=== PATIENT | male | born 1955 | race Caucasian/White ===

== ENCOUNTER 2017-01-17 23:50 | Inpatient (IN) | payer OTHER ==
[2017-01-18] MEDS ORDERED: SODIUM CHLORIDE 0.9% 1,000 ML IV ONE (00:16)
[2017-01-18] MEDS ORDERED: MIDAZOLAM 2 MG/2 ML VIAL IVP ONE (00:16)
[2017-01-18] MEDS ORDERED: LIDOCAINE 2% INJ 20 MG/ML SQ ONE (00:20)
[2017-01-18] MEDS ORDERED: BIVALIRUDIN 250 MG in SODIUM CHLORIDE 0.9% 50 ML IV ONE (00:30)
[2017-01-18] MEDS ORDERED: BIVALIRUDIN BOLUS 250 MG/50 ML IV ONE (00:34)
--- NOTE | 2017-01-18 00:35 | P.CRDCN ---
History of Present Illness Consult date: 01/18/17 History of present illness: This is a 61-year-old gentleman with no significant past medical history except a smoking came to [facility] emergency room with complaints of burning epigastric pain radiating to the chest and also to the left arm associated with some sweating. Patient took his Pepcid and Pepto-Bismol at home without much relief. Patient subsequently came to the emergency room. EKG in the emergency room showed ST elevation in the anterior leads consistent with anterior wall myocardial infarction. Patient was given nitroglycerin without much relief. He was given morphine with partial relief of the pain. He was advised to be transferred to [facility] for cardiac cath and possible stent placement. On arrival patient is having mild chest discomfort. He has no family. Patient is advised of the risks and benefits of the procedure Review of Systems Not obtained Medications and Allergies Allergies Allergy/AdvReac Type Severity Reaction Status Date / Time No Known Allergies Allergy Verified 01/18/17 00:17 Physical Exam Vitals: Intake and Output 01/17/17 01/17/17 01/18/17 14:59 22:59 06:59 Other: Weight 83.395 kg Patient Weight 01/18/17 06:59 Weight 83.395 kg GENERAL EXAM: Patient is alert and oriented and appears to be in mild distress acute distress HEENT: Normocephalic. Normal reaction of pupils, equal size, normal range of extraocular motion. No erythema or exudates in the throat. NECK: No masses, no nuchal rigidity. CHEST: No chest wall deformity. LUNGS: Equal air entry with no crackles or wheeze. HEART: S1 and S2 normal with no audible mumurs or gallops. Regular rhythm, right femoral pulse is weak ABDOMEN: No hepatosplenomegaly, normal bowel sounds, no guarding or rigidity. SKIN: No rashes CENTRAL NERVOUS SYSTEM: No focal deficits. EXTREMITIES: No cyanosis, clubbing or edema. Results Intake and Output 01/17/17 01/17/17 01/18/17 14:59 22:59 06:59 Other: Weight 83.395 kg Patient Weight 01/18/17 06:59 Weight 83.395 kg EKG Interpretations (text) Sinus rhythm with anterior wall myocardial infarctions Assessment and Plan (1) Acute anterior wall IL Status: Acute (2) Smoking Status: Acute Plan: Proceed with cardiac catheterization with intention of primary intervention. Prognosis is guarded
--- NOTE | 2017-01-18 00:39 | P.PCN ---
Date of Procedure: 01/18/17 Preoperative Diagnosis: Acute anterior wall myocardial infarctions Postoperative Diagnosis: Total occlusion of the left anterior descending Procedure(s) Performed: Left heart catheterization Implants: Indications for Procedure: Operative Findings: Description of Procedure: HISTORY: This is a 61-year-old gentleman with history of smoking was admitted through the emergency room with findings of acute anterolateral wall CO. Patient is advised to have a cardiac cath. CONSENT:I have discussed the risks, benefits and alternative therapies for the above-mentioned procedure and for both sedation/analgesia as well as necessary blood product administration, if indicated, as they pertain to this patient. The patient has indicated understanding and acceptance of the risks and procedures discussed. PROCEDURE: Patient was brought to the lab in a fasting state. Patient was given some IV sedation. The right groin is infiltrated with lidocaine and right femoral artery was entered using Seldinger technique. A 6-Mexican catheter was left in place and selective coronary arteriography was performed. Patient tolerated the procedure well. Patient is found to have total occlusion of the left anterior descending and went on to have stent placement by Dr. SWATI Hare HEMODYNAMICS: The aortic pressure is 116/74. Left ankle end-diastolic pressure not measured SELECTIVE CORONARY ARTERIOGRAPHY: LEFT MAIN: Normal length THE LEFT ANTERIOR DESCENDING CORONARY ARTERY: This is totally occluded in the proximal portion. The mid and distal LAD is seen by collateral flow. LAD appears to be dominant vessel. THE LEFT CIRCUMFLEX AND IS CORONARY ARTERY: Fair caliber vessel with mild diffuse disease THE RIGHT CORONARY ARTERY: Nondominant vessel LEFT VENTRICULOGRAPHY: Not performed FINAL IMPRESSION: Total occlusion of the proximal LAD PLAN: Stent placement being attempted by Dr. SWATI Hare PROGNOSIS: Guarded
[2017-01-18] MEDS ORDERED: NITROGLYCERIN 1000MCG/10ML SYRINGE INTRACORON ONE (00:48)
[2017-01-18] MEDS ORDERED: METOPROLOL TARTRATE 5 MG/5 ML VIAL IVP ONE (01:01)
[2017-01-18] MEDS ORDERED: CLOPIDOGREL 75 MG TAB PO ONE (01:04)
[2017-01-18] MEDS ORDERED: IODIXANOL 320 MG/ML 100 ML INTRAARTER ONE (01:05)
[2017-01-18] MEDS ORDERED: MAG HYDROX/AL HYDROX/SIMETH 30 ML CUP PO PRN (01:13)
[2017-01-18] MEDS ORDERED: RX INFO: IV CONTRAST WAS GIVEN 1 EACH MISC MISCELLANE PRN (01:13)
[2017-01-18] MEDS ORDERED: ZOLPIDEM 5 MG TAB PO PRN (01:13)
[2017-01-18] MEDS ORDERED: ATROPINE SULFATE 0.1 MG/ML 10ML SYRINGE IV PRN (01:13)
[2017-01-18] MEDS ORDERED: NITROGLYCERIN SL TABS 0.4 MG TAB SUBLINGUAL PRN (01:13)
[2017-01-18 01:31] LABS: Glucose,Whole Blood 137 mg/dL (75-99)
[2017-01-18] MEDS: SODIUM CHLORIDE 0.9% 1,000 ML IV SCH ×2 (03:17→14:59)
[2017-01-18 04:40] VITALS: BMI 26.6
[2017-01-18 05:51] LABS: Basophils # (A) 0.1 k/uL (0-0.2); Basophils % (A) 1 %; CH 28.7; CHCM 32.9; Eosinophils # (A) 0.2 k/uL (0-0.7); Eosinophils % (A) 2 %; HCT 54.4 % (39.0-53.0); HDW 2.63; HGB 17.6 gm/dL (13.0-17.5); Luc # (Auto) 0.12; Luc % (Auto) 1; Lymphocytes # (A) 2.2 k/uL (1.0-4.8); Lymphocytes % (A) 25 %; MCH 28.5 pg (25.0-35.0); MCHC 32.4 g/dL (31.0-37.0); MCV 87.9 fL (80.0-100.0); Mean Platelet Volume 6.1; Monocytes # (A) 0.4 k/uL (0-1.0); Monocytes % (A) 4 %; Neutrophils # (A) 5.9 k/uL (1.3-7.7); Neutrophils % (A) 67 %; RBC 6.19 m/uL (4.30-5.90); RDW 14.3 % (11.5-15.5); WBC 8.8 k/uL (3.8-10.6); WBC (Perox) 8.35
[2017-01-18 06:16] LABS: Anion Gap 9 mmol/L; Blood Urea Nitrogen 13 mg/dL (9-20); Calcium 9.2 mg/dL (8.4-10.2); Carbon Dioxide 22 mmol/L (22-30); Chloride 110 mmol/L (98-107); Glucose 115 mg/dL (74-99); Magnesium 2.1 mg/dL (1.6-2.3); Non-African American GFR(MDRD) >60 (>60 ml/min/1.73 sqM); Potassium 4.2 mmol/L (3.5-5.1); Sodium 141 mmol/L (137-145)
[2017-01-18 07:53] LABS: Troponin I 30.4 ng/mL (0.000-0.034)
[2017-01-18 07:55] LABS: Creatine Kinase MB 55.7 ng/mL (0.0-2.4)
[2017-01-18] MEDS: LISINOPRIL 10 MG TAB PO SCH (08:24)
[2017-01-18] MEDS: ASPIRIN 81 MG CHEW PO SCH (08:25)
[2017-01-18] MEDS ORDERED: METOPROLOL TARTRATE 25 MG TAB PO SCH (09:00)
--- NOTE | 2017-01-18 10:07 | ECHOF ---
Referral Reason:Anterior STEMI MEASUREMENTS -------- HEIGHT: 152.4 cm WEIGHT: 83.9 kg BP: 149/84 IVSd: 1.3 cm (0.6 - 1.1) LVIDd: 4.3 cm (3.9 - 5.3) LVPWd: 1.4 cm (0.6 - 1.1) IVSs: 1.6 cm LVIDs: 3.4 cm LVPWs: 1.1 cm LA Diam: 3.7 cm (2.7 - 3.8) Ao Diam: 3.0 cm (2.0 - 3.7) AV Cusp: 1.8 cm (1.5 - 2.6) LA Diam: 4.3 cm (2.7 - 3.8) MV EXCURSION: 23.427 mm (> 18.000) MV EF SLOPE: 75 mm/s (70 - 150) EPSS: 0.5 cm MV E Kimani: 0.61 m/s MV DecT: 300 ms MV A Kimani: 0.91 m/s MV E/A Ratio: 0.67 FINDINGS -------- Sinus rhythm. This was a technically adequate study. There is mild concentric left ventricular hypertrophy. Overall left ventricular systolic function is mild-moderately impaired with, an EF between 40 - 45 %. Mid anterior LV wall motion is normal. Mid anteroseptal LV wall motion is hypokinetic. Apical anterior LV wall motion is hypokinetic. Apical septum LV wall motion is hypokinetic. [place] Hypokinesis. The right ventricle is normal in size. The left atrial size is normal. The right atrial size is normal. There is mild aortic valve sclerosis. There is no evidence of aortic regurgitation. Mild mitral annular calcification present. Mild mitral regurgitation is present. Mild tricuspid regurgitation present. There is no evidence of pulmonary hypertension. The right ventricular systolic pressure, as measured by Doppler, is {RVSP}. Trace/mild (physiologic) pulmonic regurgitation. The aortic root size is normal. There is no pericardial effusion. CONCLUSIONS -------- 1. There is mild concentric left ventricular hypertrophy. 2. The right ventricular systolic pressure, as measured by Doppler, is {RVSP}. 3. Trace/mild (physiologic) pulmonic regurgitation. 4. There is no pericardial effusion. 5. Overall left ventricular systolic function is mild-moderately impaired with, an EF between 40 - 45 %. 6. Mid anterior LV wall motion is normal. 7. [place]ell Hypokinesis. 8. There is mild aortic valve sclerosis. 9. Mild mitral annular calcification present. 10. Mild mitral regurgitation is present. 11. Mild tricuspid regurgitation present. 12. There is no evidence of pulmonary hypertension. ACCOUNTS PAYABLE REPRESENTATIVE: Linsey Barker RDCS
--- NOTE | 2017-01-18 10:41 | PTCA ---
DATE OF SERVICE: 01/18/17. PROCEDURE: PTCA and stenting of a totally occluded mid LAD performed in the setting of an acute anterior wall ST elevation myocardial infarction. Performed by: Dr. Berna Hare. CLINICAL INFORMATION: Mr. Steven Jasmine is a 61-year-old gentleman with a history of smoking and does not take any medications has no primary care physician came into [facility] emergency room with chest pain, HAD anterior ST elevation was promptly transferred to [facility]. He was evaluated by Dr. Rodriguez who performed the cardiac catheterization and noted that the LAD was totally occluded in the midportion immediately after a moderate size septal branch. His circumflex was dominant disease-free , RCA was small. He was advised intervention that was performed expeditiously. PROCEDURE NOTE: The existing 6 Bahamian introducer in the right femoral artery was used to perform procedure. I used a standard left Tarah-type guide catheter to cannulate the left coronary artery. A BMW wire along with a 2.5 caliber, 12 mm long trek balloon combination was used to cross the lesion. Wire was kept distally. I dilated to the total occlusion in three areas with a 2.5 caliber, 12 mm long trek balloon. There was a decent improvement in angiographic appearance and flow. The entire vessel opened up all the way to the apex. I then deployed a 2.75 caliber, 18 millimeters long Xience drug-eluting stent at 14 atmospheres. The patient did not have any additional chest pain, but had slightly more prominent. EKG changes. Excellent angiographic result was achieved with remarkably good JERRY-3 flow. Patient's chest pain was relieved completely. EKG remained abnormal with anterior ST elevation, but some modest improvement in ST segment after the intervention. I then performed a left ventriculogram after checking the LV pressure in a 30 degree KLEIN projection. Ejection fraction was about 40% to 45% with mid to distal anteroapical akinesia. A left ventricular end-diastolic pressure was about 20 mmHg without any gradient across the aortic valve. The sheath was then taken out and Angio-Seal device used to secure hemostasis. Patient was sent to the room in stable condition. Excellent angiographic result without complication was achieved. The results were discussed with the patient. There were no family members available. He received a total of 600 milligrams of Plavix. He received 300 milligrams in the [facility] emergency room and additional 300 here.. He also received Angiomax bolus and infusion. The patient was poor given moderate conscious sedation for a total duration 50 minutes. Patient to was given Versed, Benadryl and oxygenation was monitored closely.
--- NOTE | 2017-01-18 11:20 | PN ---
Mr. Jasmine is doing well. He was admitted yesterday with an acute myocardial infarction anterior wall and he underwent stent to the LAD. He is pain free. His groin has healed well. There is no hematoma. Heart sounds are normal. Breath sounds are clear. No murmurs, no gallops. Vitals are stable. His blood pressure is 134/81, 149/84 mmHg. Heart rates are in the 80s. He is afebrile, 98.4 degrees Fahrenheit . IMPRESSION: Coronary artery disease, status post anterior wall myocardial infarction, status post coronary stenting. PLAN: Increase beta blockers today and continue statins and antiplatelet agents, 2-D echo and Doppler study.
--- NOTE | 2017-01-18 17:45 | P.HPIM ---
History of Present Illness H&P Date: 01/18/17 Chief Complaint: Pain 61-year-old gentleman with the significant past medical history of GERD initially went into the [facility] after noting to have left-sided arm pain and diaphoresis. Patient initially thought it was heartburn took some medications thereafter did not have relief and noted to have additional symptoms of left arm numbness and diaphoresis. Patient was noted to have an ST elevation myocardial infarction thereafter was a brought in to [facility] emergently. Patient underwent a cardiac catheterization was noted to have a lesion in the LAD and is status post stent placement for an anterior wall myocardial infarctions Today patient is symptom-free denies having any headaches blurry vision nausea vomiting any breathing difficulty. Patient smokes about a pack of cigarettes daily refuses to quit smoking on discharge. Review of Systems All systems: negative (Noted in HPI) Past Medical History Past Medical History: No Reported History History of Any Multi-Drug Resistant Organisms: None Reported Past Surgical History: No Surgical Hx Reported Past Anesthesia/Blood Transfusion Reactions: No Reported Reaction Past Psychological History: No Psychological Hx Reported Smoking Status: Current every day smoker Past Alcohol Use History: None Reported Past Drug Use History: None Reported - Past Family History Mother Family Medical History: Diabetes Mellitus Father Family Medical History: Diabetes Mellitus Medications and Allergies Home Medications Medication Instructions Recorded Confirmed Type No Known Home Medications [No 01/18/17 01/18/17 History Known Home Medications] Allergies Allergy/AdvReac Type Severity Reaction Status Date / Time No Known Allergies Allergy Verified 01/18/17 00:17 Physical Exam Vitals: Vital Signs Temp Pulse Resp BP Pulse Ox 01/18/17 16:00 97.9 F 73 16 102/54 95 01/18/17 15:00 80 15 118/63 94 L 01/18/17 14:00 76 17 116/70 92 L 01/18/17 13:00 94 14 118/71 94 L 01/18/17 12:00 98.4 F 78 15 125/76 95 01/18/17 11:00 79 19 123/77 94 L 01/18/17 10:30 79 30 H 137/78 95 01/18/17 10:00 76 24 137/78 94 L 01/18/17 09:30 74 20 134/80 93 L 01/18/17 09:00 78 21 134/80 94 L 01/18/17 08:30 84 18 149/84 93 L 01/18/17 08:00 98.4 F 90 19 149/84 94 L 01/18/17 07:30 87 17 148/82 94 L 01/18/17 07:00 83 21 143/80 94 L 01/18/17 06:30 84 20 146/86 94 L 01/18/17 06:00 88 20 143/80 95 01/18/17 05:30 84 20 141/85 94 L 01/18/17 05:00 87 19 134/77 94 L 01/18/17 04:45 84 20 141/79 95 01/18/17 04:30 89 20 141/79 93 L 01/18/17 04:15 87 21 137/84 93 L 01/18/17 04:00 98.3 F 86 17 137/84 93 L 01/18/17 03:45 90 16 140/83 93 L 01/18/17 03:30 87 17 134/79 95 01/18/17 03:15 94 20 135/79 94 L 01/18/17 03:00 98 16 135/84 92 L 01/18/17 02:45 109 H 20 140/88 94 L 01/18/17 02:30 89 14 140/80 93 L 01/18/17 02:15 87 20 126/81 94 L 01/18/17 02:00 83 22 136/81 94 L 01/18/17 01:45 98.5 F 84 23 141/92 95 Intake and Output 01/18/17 01/18/17 01/18/17 06:59 14:59 22:59 Intake Total 658 1745 500 Output Total 750 1700 300 Balance -92 45 200 Intake: IV 658 525 Sodium Chloride 0.9% 1, 375 525 000 ml @ 75 mls/hr IV . [id number] SUDEEP Rx#:[id number] Oral 1220 500 Output: Urine 750 1700 300 Other: # Voids 1 Weight 84.1 kg Physical exam Gen. appearance oriented 3 in no distress Neck is supple no JVD Lungs good air entry clear to auscultation no rhonchi or wheezing Heart S1-S2 heard regular rate and rhythm no murmurs appreciated Abdomen is soft nontender no organomegaly bowel sounds are intact Neurologically cranial nerves II-12 grossly intact no focal motor or sensory deficits noted Skin no abnormalities appreciated Results CBC & Chem 7: 01/18/17 05:42 01/18/17 05:42 Labs: Abnormal Lab Results - Last 24 Hours (Table) 01/18/17 01/18/17 01/18/17 Range/Units 01:29 05:42 05:42 RBC 6.19 H (4.30-5.90) m/uL Hgb 17.6 H (13.0-17.5) gm/dL Hct 54.4 H (39.0-53.0) % Chloride 110 H (98-107) mmol/L Glucose 115 H (74-99) mg/dL POC Glucose (mg/dL) 137 H (75-99) mg/dL CK-MB (CK-2) (0.0-2.4) ng/mL Troponin I (0.000-0.034) ng/mL 01/18/17 01/18/17 Range/Units 05:42 14:50 RBC (4.30-5.90) m/uL Hgb (13.0-17.5) gm/dL Hct (39.0-53.0) % Chloride (98-107) mmol/L Glucose (74-99) mg/dL POC Glucose (mg/dL) (75-99) mg/dL CK-MB (CK-2) 55.7 H* (0.0-2.4) ng/mL Troponin I 30.400 H* 9.950 H* (0.000-0.034) ng/mL Thrombosis Risk Factor Assmnt - Choose All That Apply Any of the Below Risk Factors Present?: Yes Each Factor Represents 1 point: Age 41-60 years, Medical pt on bed rest, Obesity (BMI >25) Each Risk Factor Represents 2 Points: Patient confined to bed Thrombosis Risk Factor Assessment Total Risk Factor Score: 5 Thrombosis Risk Factor Assessment Level: High Risk Assessment and Plan Plan: #1 ST elevation myocardial infarction affecting the LAD territory anterior wall #2 ongoing tobacco use #2 leukocytosis which is likely reactive Plan Continue dual antiplatelet therapy statins Vascular checks were completed appropriately Continue telemetry monitoring at this time Beta blockers to continue Smoking cessation was discussed however patient does not want to quit smoking at this time continue ICU care
[2017-01-18] MEDS: ATORVASTATIN 80 MG TAB PO SCH (20:33)
[2017-01-18] MEDS: METOPROLOL TARTRATE 50 MG TAB PO SCH (20:33)
[2017-01-19 06:27] LABS: Basophils # (A) 0.1 k/uL (0-0.2); Basophils % (A) 1 %; CH 28.1; CHCM 32.4; Eosinophils # (A) 0.2 k/uL (0-0.7); Eosinophils % (A) 2 %; HCT 52.9 % (39.0-53.0); HDW 2.76; HGB 17.8 gm/dL (13.0-17.5); Luc # (Auto) 0.13; Luc % (Auto) 2; Lymphocytes # (A) 1.9 k/uL (1.0-4.8); Lymphocytes % (A) 25 %; MCH 29.4 pg (25.0-35.0); MCHC 33.7 g/dL (31.0-37.0); MCV 87.1 fL (80.0-100.0); Mean Platelet Volume 7.5; Monocytes # (A) 0.4 k/uL (0-1.0); Monocytes % (A) 5 %; Neutrophils # (A) 5.1 k/uL (1.3-7.7); Neutrophils % (A) 66 %; RBC 6.08 m/uL (4.30-5.90); RDW 14.7 % (11.5-15.5); WBC 7.7 k/uL (3.8-10.6); WBC (Perox) 7.29
[2017-01-19] MEDS: CLOPIDOGREL 75 MG TAB PO SCH (07:53)
[2017-01-19] MEDS: LISINOPRIL 10 MG TAB PO SCH (07:53)
[2017-01-19] MEDS: ASPIRIN 81 MG CHEW PO SCH (07:54)
[2017-01-19] MEDS: METOPROLOL TARTRATE 50 MG TAB PO SCH ×2 (07:54→20:42)
[2017-01-19 08:29] LABS: Anion Gap 11 mmol/L; Blood Urea Nitrogen 18 mg/dL (9-20); Calcium 9.4 mg/dL (8.4-10.2); Carbon Dioxide 20 mmol/L (22-30); Chloride 108 mmol/L (98-107); Glucose 138 mg/dL (74-99); Non-African American GFR(MDRD) >60 (>60 ml/min/1.73 sqM); Potassium 4.7 mmol/L (3.5-5.1); Sodium 139 mmol/L (137-145)
--- NOTE | 2017-01-19 15:05 | P.PN ---
Subjective 61-year-old gentleman with the significant past medical history of GERD initially went into the [facility] after noting to have left-sided arm pain and diaphoresis. Patient initially thought it was heartburn took some medications thereafter did not have relief and noted to have additional symptoms of left arm numbness and diaphoresis. Patient was noted to have an ST elevation myocardial infarction thereafter was a brought in to [facility] emergently. Patient underwent a cardiac catheterization was noted to have a lesion in the LAD and is status post stent placement for an anterior wall myocardial infarctions Today patient is symptom-free denies having any headaches blurry vision nausea vomiting any breathing difficulty. Patient smokes about a pack of cigarettes daily refuses to quit smoking on discharge. 01/19/17 No new overnight events denies pain in his groin no cp, maggie, n/v, abdominal pain Objective - Vital Signs Vital signs: Vital Signs Temp 97.6 F 01/19/17 07:49 Pulse 58 L 01/19/17 11:18 Resp 16 01/19/17 11:18 BP 106/60 01/19/17 11:18 Pulse Ox 96 01/19/17 11:18 Intake & Output 01/18/17 01/19/17 01/19/17 18:59 06:59 18:59 Intake Total 2245 180 720 Output Total 2000 Balance 245 180 720 Weight 81.7 kg Intake: IV 525 Sodium Chloride 0.9% 1, 525 000 ml @ 75 mls/hr IV . [id number] SUDEEP Rx#:[id number] Oral 1720 180 720 Output: Urine 2000 Other: # Voids 1 1 1 - Constitutional General appearance: Present: no acute distress - EENT Eyes: Present: PERRLA - Neck Neck: Present: normal ROM - Respiratory Respiratory: bilateral: CTA, negative: dullness, rales, rhonchi - Cardiovascular Rhythm: regular Heart sounds: normal: S1, S2 Abnormal Heart Sounds: Absent: systolic murmur - Gastrointestinal General gastrointestinal: Present: normal bowel sounds. Absent: organomegaly, tenderness - Integumentary Integumentary: Present: normal - Neurologic Neurologic: Present: CNII-XII intact. Absent: focal deficits - Musculoskeletal Musculoskeletal: Present: gait normal - Psychiatric Psychiatric: Present: A&O x's 3. Absent: appropriate affect - Labs CBC & Chem 7: 01/19/17 06:08 01/19/17 06:38 Labs: Abnormal Lab Results - Last 24 Hours (Table) 01/18/17 01/18/17 01/19/17 Range/Units 14:50 18:06 06:08 RBC 6.08 H (4.30-5.90) m/uL Hgb 17.8 H (13.0-17.5) gm/dL Chloride (98-107) mmol/L Carbon Dioxide (22-30) mmol/L Glucose (74-99) mg/dL Troponin I 9.950 H* 8.940 H* (0.000-0.034) ng/mL 01/19/17 Range/Units 06:38 RBC (4.30-5.90) m/uL Hgb (13.0-17.5) gm/dL Chloride 108 H (98-107) mmol/L Carbon Dioxide 20 L (22-30) mmol/L Glucose 138 H (74-99) mg/dL Troponin I (0.000-0.034) ng/mL Assessment and Plan Plan: #1 ST elevation myocardial infarction affecting the LAD territory anterior wall #2 ongoing tobacco use #2 leukocytosis which is likely reactive Plan Continue dual antiplatelet therapy statins Continue telemetry monitoring at this time Beta blockers to continue Smoking cessation was discussed however patient does not want to quit smoking at this time d/c home [facility]
--- NOTE | 2017-01-19 15:53 | P.PN ---
Subjective Principal diagnosis: STEMI This is a 61-year-old gentleman with history of nicotine dependence who presented to [facility] with complaints of chest discomfort. He ruled in for an ST elevation myocardial infarction. Patient was transferred here and underwent stent placement of the LAD. EKG this morning showed normal sinus rhythm with progression of ST-T wave changes in the anterior lateral leads. Hemoglobin this morning 17.8, platelet count 198, potassium 4.7, BUN 18, creatinine 0.8. Initial troponin 30.4, subsequent troponin 9.9 and 8.9. Echocardiogram with Doppler study was performed which revealed an ejection fraction of 40-45%. He has been up ambulating in the hallway, denies any chest pain or difficulty in breathing. Objective - Vital Signs Vital signs: Vital Signs Temp 97.4 F L 01/19/17 15:06 Pulse 55 L 01/19/17 15:06 Resp 16 01/19/17 15:06 BP 99/56 01/19/17 15:06 Pulse Ox 97 01/19/17 15:06 Intake & Output 01/18/17 01/19/17 01/19/17 18:59 06:59 18:59 Intake Total 2245 180 720 Output Total 1999 09 Balance 245 180 719 Weight 81.7 kg Intake: IV 525 Sodium Chloride 0.9% 1, 525 000 ml @ 75 mls/hr IV . [id number] SUDEEP Rx#:[id number] Oral 1720 180 720 Output: Urine 1999 09 Other: # Voids 1 1 1 - Exam PHYSICAL EXAMINATION: HEENT: Head is atraumatic, normocephalic. Pupils equal, round. Neck is supple. There is no elevated jugular venous pressure. HEART EXAMINATION: Heart S1, S2 normal. No murmur or gallop heard. CHEST EXAMINATION: Lungs are clear to auscultation and precussion. No chest wall tenderness is noted on palpation or with deep breathing. ABDOMEN: Soft, nontender. Bowel sounds are heard. No organomegaly noted. Right groin soft, no evidence of any hematoma. EXTREMITIES: 2+ peripheral pulses with no evidence of peripheral edema and no calf tenderness noted. NEUROLOGIC patient is awake, alert and oriented -3. . - Labs CBC & Chem 7: 01/19/17 06:08 01/19/17 06:38 Labs: Abnormal Lab Results - Last 24 Hours (Table) 01/18/17 01/18/17 01/19/17 Range/Units 14:50 18:06 06:08 RBC 6.08 H (4.30-5.90) m/uL Hgb 17.8 H (13.0-17.5) gm/dL Chloride (98-107) mmol/L Carbon Dioxide (22-30) mmol/L Glucose (74-99) mg/dL Troponin I 9.950 H* 8.940 H* (0.000-0.034) ng/mL 01/19/17 Range/Units 06:38 RBC (4.30-5.90) m/uL Hgb (13.0-17.5) gm/dL Chloride 108 H (98-107) mmol/L Carbon Dioxide 20 L (22-30) mmol/L Glucose 138 H (74-99) mg/dL Troponin I (0.000-0.034) ng/mL Assessment and Plan (1) ST elevation (STEMI) myocardial infarction involving left anterior descending coronary artery Status: Acute (2) Presence of stent in LAD coronary artery Status: Acute (3) Smoking Status: Acute Plan: From cardiology's perspective, we'll continue patient on his current medication including dual antiplatelet therapy. He may be able to be discharged home in the morning if stable. A follow-up appointment will be made with Dr. Rodriguez in the office post discharge. DNP note has been reviewed, I agree with a documented findings and plan of care. Patient was seen and examined.
[2017-01-19] MEDS: ATORVASTATIN 80 MG TAB PO SCH (20:42)
[2017-01-20 04:26] VITALS: TEMP 97
[2017-01-20] MEDS: METOPROLOL TARTRATE 50 MG TAB PO SCH (08:07)
[2017-01-20] MEDS: ASPIRIN 81 MG CHEW PO SCH (08:07)
[2017-01-20] MEDS: CLOPIDOGREL 75 MG TAB PO SCH (08:08)
[2017-01-20] MEDS: LISINOPRIL 10 MG TAB PO SCH (08:08)
[2017-01-20 08:17] VITALS: RESP 18
[2017-01-20 12:17] VITALS: BP 124/70; PULSE 57
--- NOTE | 2017-01-20 13:59 | P.PN ---
Subjective Principal diagnosis: STEMI This is a 61-year-old gentleman with a history of nicotine dependence who presented to [facility] with complaints of chest discomfort. He ruled in for an ST elevated myocardial infarction. Patient was transferred here to [facility] and underwent stent placement of the LAD. Subsequently EKG showed normal sinus rhythm with progress send of ST-T wave changes in the left anterior lateral leads. He had initial troponin of 30.4 with subsequent troponins of 9.9 and 8.9. Echocardiogram with Doppler was performed that revealed an ejection fraction of 40-45%. Patient has been up ambulating denies complaints of chest discomfort, difficulty breathing, dizziness or palpitations. He is quite anxious to be discharged today. Objective - Vital Signs Vital signs: Vital Signs Temp 97 F L 01/20/17 12:00 Pulse 57 L 01/20/17 12:00 Resp 18 01/20/17 12:00 BP 124/70 01/20/17 12:00 Pulse Ox 98 01/20/17 12:00 Intake & Output 01/19/17 01/20/17 01/20/17 18:59 06:59 18:59 Intake Total 960 240 Output Total 1 Balance 959 240 Weight 81.7 kg Intake: Oral 960 240 Output: Urine 1 Other: # Voids 1 1 - Exam PHYSICAL EXAMINATION: HEENT: Head is atraumatic, normocephalic. Pupils equal, round. Neck is supple. There is no elevated jugular venous pressure. HEART EXAMINATION: Heart sounds regular, S1 and S2 normal. No murmur or gallop heard. CHEST EXAMINATION: Lungs are clear to auscultation and precussion. No chest wall tenderness is noted on palpation or with deep breathing. ABDOMEN: Soft, nontender. Bowel sounds are heard. No organomegaly noted. EXTREMITIES: 2+ peripheral pulses with no evidence of peripheral edema and no calf tenderness noted. Right groin puncture site soft with no ecchymosis or evidence of hematoma. NEUROLOGIC patient is awake, alert and oriented x3. . - Labs CBC & Chem 7: 01/19/17 06:08 01/19/17 06:38 Assessment and Plan Plan: Assessment and plan #1 ST elevation myocardial infarction involving left anterior descending coronary artery #2 status post stent placement to the LAD #3 current every day smoker From cardiology's perspective, patient is stable for discharge home today. Smoking cessation was discussed with the patient and he has not agreeable. He understands that he should not return to work on Monday. He will follow-up with Dr. Rodriguez in the office in about a week. He will remain on aspirin 81 mg by mouth daily, atorvastatin 80 mg by mouth daily at bedtime, clopidogrel 75 mg by mouth daily, lisinopril 10 mg by mouth daily and metoprolol tartrate 50 mg by mouth twice a day. CLINICAL OPERATIONS SPECIALIST note has been reviewed, I agree with a documented findings and plan of care. Patient was seen and examined.
--- NOTE | 2017-01-20 14:07 | P.DS ---
Providers Date of admission: 01/18/17 00:04 Attending physician: Carola Davis Consults: 01/18/17 01:12 Consult Physician Stat Consulting Provider: Rolando Rodriguez Consult Reason/Comments: Acute STEMI Do you want consulting provider notified?: Already Contacted 01/18/17 01:13 Consult Physician Routine Consulting Provider: [facility] Consult Reason/Comments: Post Interventional patient Do you want consulting provider notified?: Already Contacted Primary care physician: Stated None Hospital Course: 61-year-old gentleman with the significant past medical history of GERD initially went into the [facility] after noting to have left-sided arm pain and diaphoresis. Patient initially thought it was heartburn took some medications thereafter did not have relief and noted to have additional symptoms of left arm numbness and diaphoresis. Patient was noted to have an ST elevation myocardial infarction thereafter was a brought in to [facility] emergently. Patient underwent a cardiac catheterization was noted to have a lesion in the LAD and is status post stent placement for an anterior wall myocardial infarctions Today patient is symptom-free denies having any headaches blurry vision nausea vomiting any breathing difficulty. Patient smokes about a pack of cigarettes daily refuses to quit smoking on discharge. 01/19/17 No new overnight events denies pain in his groin no cp, maggie, n/v, abdominal pain - Constitutional General appearance: Present: no acute distress - EENT Eyes: Present: PERRLA - Neck Neck: Present: normal ROM - Respiratory Respiratory: bilateral: CTA, negative: dullness, rales, rhonchi - Cardiovascular Rhythm: regular Heart sounds: normal: S1, S2 Abnormal Heart Sounds: Absent: systolic murmur - Gastrointestinal General gastrointestinal: Present: normal bowel sounds. Absent: organomegaly, tenderness - Integumentary Integumentary: Present: normal - Neurologic Neurologic: Present: CNII-XII intact. Absent: focal deficits - Musculoskeletal Musculoskeletal: Present: gait normal - Psychiatric Psychiatric: Present: A&O x's 3. Absent: appropriate affect - Labs CBC & Chem 7: 01/19/17 06:08 Assessment and Plan Plan: #1 ST elevation myocardial infarction affecting the LAD territory anterior wall #2 ongoing tobacco use Aspirin Plavix, beta kamilla, ADAMS inhibitor, statin on discharge Follow-up with cardiology Did discuss possibility of cardiac rehab Smoking cessation is discussed patient refuses to quit smoking Discharged home Plan - Discharge Summary New Discharge Prescriptions: Aspirin 81 mg PO DAILY #30 Atorvastatin [Lipitor] 80 mg PO HS #30 tab Clopidogrel [Plavix] 75 mg PO DAILY #30 tab Lisinopril [Zestril] 10 mg PO DAILY #30 tab Metoprolol Tartrate [Lopressor] 50 mg PO BID #30 tab Discharge Medication List Aspirin 81 mg PO DAILY #30 01/20/17 [Rx] Atorvastatin [Lipitor] 80 mg PO HS #30 tab 01/20/17 [Rx] Clopidogrel [Plavix] 75 mg PO DAILY #30 tab 01/20/17 [Rx] Lisinopril [Zestril] 10 mg PO DAILY #30 tab 01/20/17 [Rx] Metoprolol Tartrate [Lopressor] 50 mg PO BID #30 tab 01/20/17 [Rx] Follow up Appointment(s)/Referral(s): Beth Bautista MD [STAFF PHYSICIAN] - 1 Week (Please call to make an appointment. ) Rolando Rodriguez MD [STAFF PHYSICIAN] - 01/26/17 2:00 pm Patient Instructions/Handouts: *Surgery [facility] - After Heart Catheterization - Pacs Administrator Instructions, Myocardial Infarction (DC) Discharge Disposition: HOME SELF-CARE
== END 2017-01-20 14:39 | disposition home or self-care (01) | DRG 247 ==
LOC: 6ICU 01-18 00:04 → 6SEL 01-18 18:45
PROVIDERS: ADMIT Internal Medicine; ATTEND Internal Medicine
PROC: B211YZZ Fluoroscopy of Multiple Coronary Arteries using Other Contrast (ICD-10-PCS; 2017-01-18)
PROC: B215YZZ Fluoroscopy of Left Heart using Other Contrast (ICD-10-PCS; 2017-01-18)
PROC: 027034Z Dilation of Coronary Artery, One Artery with Drug-eluting Intraluminal Device, Percutaneous Approach (ICD-10-PCS; principal; 2017-01-18 00:15)
PROC: 4A023N7 Measurement of Cardiac Sampling and Pressure, Left Heart, Percutaneous Approach (ICD-10-PCS; 2017-01-18 00:15)
DX: I21.02 ST elevation (STEMI) myocardial infarction involving left anterior descending coronary artery (principal); F17.210 Nicotine dependence, cigarettes, uncomplicated; I25.10 Atherosclerotic heart disease of native coronary artery without angina pectoris; K21.9 Gastro-esophageal reflux disease without esophagitis
CPT/HCPCS: 80048; 82553; 83735; 84484; 85025; 93306; 93458

== ENCOUNTER 2019-05-12 11:10 | Emergency (ER) | payer OTHER ==
[2019-05-12 11:16] VITALS: BP 155/99; PULSE 105; RESP 18; TEMP 97.9
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
[2019-05-12] MEDS ORDERED: ACET/COD 300 MG/30 MG STARTER PACK 6 TAB BTL PO STA (11:59)
== END 2019-05-12 12:06 | disposition home or self-care (01) ==
LOC: EC 11:10
DX: S42.002A Fracture of unspecified part of left clavicle, initial encounter for closed fracture (principal); I25.2 Old myocardial infarction; F17.200 Nicotine dependence, unspecified, uncomplicated; Z95.5 Presence of coronary angioplasty implant and graft; V89.2XXA Person injured in unspecified motor-vehicle accident, traffic, initial encounter; Y92.89 Other specified places as the place of occurrence of the external cause
CPT/HCPCS: 71045; 99284

== ENCOUNTER 2023-05-10 05:55 | Day surgery (SDC) | payer MEDICARE ==
[2023-05-04 15:45] VITALS: BMI 27.3
[~2023-05-10 05:55] MED LIST: ALPRAZolam 0.25 MG TAB PO PRN; ALPRAZolam 0.5 MG TAB PO PRN; ASPIRIN 325 MG TAB PO STA; ATORVASTATIN 80 MG TAB PO STA; HEPARIN SODIUM,PORCINE (1 ML) 2,500 UNIT in SODIUM CHLORIDE 0.9% 250 ML IRRIGATION PRN; HEPARIN SODIUM,PORCINE 10,000 UNIT in SODIUM CHLORIDE 0.9% 1,000 ML IRRIGATION PRN; NITROGLYCERIN SL TABS 0.4 MG TAB SUBLINGUAL PRN; SODIUM CHLORIDE 0.9% 1,000 ML in EMPTY BAG 1 BAG IV SCH
[2023-05-10] MEDS ORDERED: SODIUM CHLORIDE 0.9% 1,000 ML IV ONE (06:08)
[2023-05-10 06:29] LABS: Glucose,Whole Blood 158 mg/dL (70-110)
[2023-05-10 06:30] VITALS: RESP 16; TEMP 97.4
[2023-05-10] MEDS ORDERED: VERAPAMIL 2.5 MG/ML 2 ML AMP ONE (07:20)
[2023-05-10] MEDS ORDERED: HEPARIN SODIUM 1,000 UN/ML (10ML VL) ONE (07:20)
[2023-05-10] MEDS ORDERED: fentaNYL (PF) 50 MCG/ML 2 ML AMP ONE (07:20)
[2023-05-10] MEDS ORDERED: fentaNYL (PF) 50 MCG/ML 2 ML AMP IVP ONE (07:59)
[2023-05-10] MEDS ORDERED: MIDAZOLAM 2 MG/2 ML VIAL IVP ONE (07:59)
[2023-05-10] MEDS ORDERED: LIDOCAINE 2% (PF) 20 MG/ML 5 ML VIAL SQ ONE (08:00)
[2023-05-10] MEDS ORDERED: VERAPAMIL SYRINGE (5 MG/10 ML) INTRAARTER ONE (08:02)
[2023-05-10] MEDS ORDERED: LIDOCAINE 1% INJ 10MG/ML (20 ML MDV) ONE (08:07)
[2023-05-10] MEDS ORDERED: LIDOCAINE 1% INJ 10MG/ML (20 ML MDV) SQ ONE (08:11)
[2023-05-10] MEDS ORDERED: IOPAMIDOL-370 200ML BTL INJ ONE (08:19)
[2023-05-10] MEDS ORDERED: RX INFO: IV CONTRAST WAS GIVEN 1 EACH MISC MISCELLANE PRN (08:30)
[2023-05-10] MEDS ORDERED: SODIUM CHLORIDE 0.9% 1,000 ML IV SCH (08:30)
--- NOTE | 2023-05-10 08:45 | CC ---
CARDIAC CATHETERIZATION REPORT INDICATIONS: Ischemic cardiomyopathy with evidence of prior extensive anterior wall myocardial infarction. PROCEDURE NOTE: After obtaining informed consent, left heart catheterization and coronary angiogram were performed via the right femoral artery using standard Tarah catheters. The patient tolerated the procedure well without any obvious immediate complications. He received moderate conscious sedation. Total sedation time was 23 minutes. A femoral angiogram was done. Decision was made for manual hemostasis. I initially obtained right radial artery access using Seldinger technique and I placed a 6-Sami sheath uneventfully in the right radial artery. However, I could not advance the wire into the brachial artery. Hence, I decided to proceed with the femoral catheterization which was completed uneventfully. The right radial artery hemostasis was obtained using a TR band. FINDINGS: 1. Hemodynamics: Left ventricular end-diastolic pressure is 14 to 16 mm. There is no significant gradient across the aortic valve. 2. Left Ventriculogram: Left ventriculogram is not performed. 3. Angiographic Data: a.Right coronary artery: Right coronary artery is a nondominant vessel and is free of significant stenosis. The left main coronary artery is a normal-sized vessel and is free of disease, divides into left anterior descending coronary artery and circumflex coronary artery. The patient was previously stented, extending from proximal to mid LAD that is totally occluded. The distal LAD fills late. The circumflex coronary artery is a large dominant vessel and is free of significant stenosis. CONCLUSIONS: Chronic total occlusion of the proximal LAD, normal circumflex coronary artery and nondominant right. PLAN: The patient will be treated with optimal medical therapy and if ischemic cardiomyopathy is confirmed on the echocardiogram, we will consider AICD. MMLINDA / IJN: [id number] /
[2023-05-11 17:14] VITALS: BP 119/59; PULSE 64
== END 2023-05-10 15:07 | disposition home or self-care (01) ==
LOC: CATHCVL 05:55
PROVIDERS: ATTEND Internal Medicine Cardiovascular Disease
DX: I25.10 Atherosclerotic heart disease of native coronary artery without angina pectoris (principal); I25.5 Ischemic cardiomyopathy; I25.82 Chronic total occlusion of coronary artery; E78.2 Mixed hyperlipidemia; E11.9 Type 2 diabetes mellitus without complications; I35.1 Nonrheumatic aortic (valve) insufficiency; I73.9 Peripheral vascular disease, unspecified; Z79.899 Other long term (current) drug therapy
CPT/HCPCS: 93458; C1769 ×2; C1894 ×2; J2250; J2001 ×2; J3010; Q9967

== ENCOUNTER → 2023-06-01 | Outpatient (CLI) | payer MEDICARE ==
--- NOTE | 2023-06-01 12:16 | XR ---
EXAMINATION TYPE: XR chest 2V DATE OF EXAM: 06/01/2023 COMPARISON: 05/12/2019 TECHNIQUE: PA and lateral views submitted. HISTORY: Preop FINDINGS: The lungs are clear and there is no pneumothorax, pleural effusion, or focal pneumonia. Heart size normal and no overt failure. Osseous structures demonstrate hypertrophic and degenerative changes of the spine. Atherosclerotic change aorta. Chronic deformity of the left clavicle. AC joint arthropathy . Hyperinflation suggests COPD. IMPRESSION: 1. No acute process.
[2023-06-01 12:47] LABS: Partial Thromboplastin Time 27.2 sec (22.0-30.0); Prothrombin Time 10.7 sec (9.0-12.0)
--- NOTE | 2023-06-01 14:31 | P.PN ---
Progress Note - Text Progress Note Date: 06/01/23 5 m walk test was completed with the patient today, patient tolerated well without complaints of shortness of breath, chest pain or/pressure. Time 1: 1.76 seconds, time 2: 1.78 seconds, time 3: 1.90 seconds. An STS risk was calculated and discussed with the patient.
--- NOTE | 2023-06-01 14:58 | US ---
EXAMINATION TYPE: US vein mapping BIL DATE OF EXAM: 06/01/2023 1:35 PM COMPARISON: NONE CLINICAL INDICATION: Male, 68 years old with history of Z00.00; pre-op SIDE PERFORMED: Bilateral TECHNIQUE: Lower extremity saphenous vein is examined and measured utilizing real time linear array sonography. Patient History: Smoker: Yes Heart Disease: No Previous DVT: No Vascular Surgery: cardiac stent Discoloration: No Hypertension: No Diabetes: Yes Paralysis: No Varicosities: Yes Edema: No DUPLEX FINDINGS: Greater Saphenous: Color flow seen Lesser Saphenous: Color flow seen Measurements in mm: Right Greater Saphenous: Groin: 5.1 mm High Thigh: 3.1 mm Mid Thigh: 3.4 mm Above Knee: 3.0 mm Knee: 2.8 mm Below Knee: 2.6 mm Mid Calf: 2.4 mm At Ankle: 2.8 mm Left Greater Saphenous: Groin: 6.0 mm High Thigh: 3.4 mm Mid Thigh: 2.2 mm Above Knee: 2.1 mm Knee: 2.3 mm Below Knee: 2.1 mm Mid Calf: 2.4 mm At Ankle: 3.1 mm IMPRESSION: 1. Bilateral GSV measurements listed above. 2. Performing surgeon to determine viability as conduit.
--- NOTE | 2023-06-01 15:03 | US ---
EXAMINATION TYPE: US arterial LE multi level DATE OF EXAM: 06/01/2023 2:51 PM CLINICAL INDICATION: Male, 68 years old with history of Z00.00; left calf claudication, pre-op cardia c surgery History of: Smoker: Current Smoker Hypertension: No Diabetic: Yes Hyperlipidemia: Yes TIA/CVA: No Previous Vascular Surgery: cardiac stent CAD: No OR: 2017 Vascular Ulcers: No Claudication: Left Gangrene: No Doppler Waveforms: Right: Multiphasic Left: Multiphasic Right Brachial Pressure: 125 Left Brachial Pressure: 129 Ankle-Brachial Indices: Right: 0.5 Left: 0.4 Toe Brachial Indices: Right: 0.5 Left: 0.4 IMPRESSION: 1. Abnormal right JANE moderate to severe atherosclerotic disease. 2. Abnormal left JANE suggest severe arterial disease.
[2023-06-01 16:51] LABS: Appearance,Urine Clear (Clear); Bilirubin,Urine Negative (Negative); Blood,Urine Negative (Negative); Color,Urine Dark Yellow (Yellow); Ketones,Urine Trace (Negative); Nitrite,Urine Negative (Negative); Specific Gravity,Urine 1.019 (1.001-1.030)
[2023-06-01 16:54] LABS: Bacteria,Urine None Seen (None Seen); HCT 56.3 % (39.6-50.0); HGB 18.4 d/dL (13.0-17.0); MCH 29.1 pg (27.0-32.0); MCHC 32.7 d/dL (32.0-37.0); MCV 88.9 FL (80.0-97.0); Mean Platelet Volume 10.4 FL (9.5-12.2); NRBC Per 100 WBC 0 X 10*3/uL (0.00-0.01); Platelet Count 226 X 10*3/uL (140-440); RBC 6.33 X 10*6/uL (4.40-5.60); RDW 15.6 % (11.5-14.5); WBC 7.02 X 10*3/uL (4.50-10.00)
[2023-06-01 17:13] LABS: ALT 24 U/L (10-49); AST 16 U/L (14-35); Albumin 4.9 d/dL (3.8-4.9); Albumin/Globulin Ratio 2.04 Ratio (1.60-3.17); Alkaline Phosphatase 87 U/L (41-126); BUN/Creat Ratio 15.78 Ratio (12.00-20.00); Blood Urea Nitrogen 14.2 mg/dL (9.0-27.0); Calcium 10.7 mg/dL (8.7-10.3); Carbon Dioxide 26.6 mmol/L (21.6-31.8); Chloride 104 mmol/L (96-109); Chol/HDL Ratio 3.64 Ratio; Globulin 2.4 d/dL (1.6-3.3); Glucose 153 mg/dL (70-110); LDL Cholesterol,Calculated 63.5 mg/dL (0.0-131.0); Magnesium 1.9 mg/dL (1.5-2.4); Potassium 5.2 mmol/L (3.5-5.5); Sodium 142 mmol/L (135-145); Total Bilirubin 0.6 mg/dL (0.3-1.2); Total Protein 7.3 d/dL (6.2-8.2)
[2023-06-01 17:44] LABS: Hepatitis A Antibody IgM Nonreactive; Hepatitis B Core IgM Nonreactive; Hepatitis B Surface Antigen Nonreactive; Hepatitis C IgG Antibody Nonreactive
== END | disposition home or self-care (01) ==
LOC: LABWHC1 11:16
PROVIDERS: ATTEND Thoracic Surgery (Cardiothoracic Vascular Surgery)
DX: Z01.812 Encounter for preprocedural laboratory examination (principal); I25.10 Atherosclerotic heart disease of native coronary artery without angina pectoris; I70.0 Atherosclerosis of aorta; E78.5 Hyperlipidemia, unspecified; E11.51 Type 2 diabetes mellitus with diabetic peripheral angiopathy without gangrene; Z95.5 Presence of coronary angioplasty implant and graft
CPT/HCPCS: 36415; 71046; 80053; 80061; 80074; 81001; 83036; 83735; 84443; 85027; 85610; 85730; 86850; 86900; 86901; 86920; 87070; 87086; 93923; 93970

== ENCOUNTER 2023-06-07 05:34 | Inpatient (IN) | payer MEDICARE ==
[~2023-06-07 05:34] MED LIST changes: +ALBUMIN HUMAN 25% 50 ML IV ONE; +ALBUMIN HUMAN 5% 500 ML IVPB ONE; -ALPRAZolam 0.25 MG TAB PO PRN; -ALPRAZolam 0.5 MG TAB PO PRN; +ASPIRIN 325 MG TAB PO ONE; -ASPIRIN 325 MG TAB PO STA; +ATORVASTATIN 10 MG TAB PO ONE; -ATORVASTATIN 80 MG TAB PO STA; +CALCIUM CHLORIDE 100 MG/ML 10 ML SYRINGE IV ONE; +CARDIOPLEGIC SOLN (K+ 16 MEQ/L 1,000 ML with SODIUM BICARB (1 MEQ/ML) 20 ML, LIDOCAINE ... PERFUSION ONE; +CHLORHEXIDINE GLUCONATE 15 ML CUP MUCOUS MEM ONE; +CLEVIDIPINE BUTYRATE 25 MG in EMPTY BAG 1 BAG IV ONE; +HEPARIN SODIUM 1,000 UN/ML (10ML VL) IV ONE; -HEPARIN SODIUM,PORCINE (1 ML) 2,500 UNIT in SODIUM CHLORIDE 0.9% 250 ML IRRIGATION PRN; +HEPARIN SODIUM,PORCINE (1 ML) 5,000 UNIT in SODIUM CHLORIDE 0.9% 500 ML 500 ML IV ONE; -HEPARIN SODIUM,PORCINE 10,000 UNIT in SODIUM CHLORIDE 0.9% 1,000 ML IRRIGATION PRN; +INSULIN REGULAR 100 UNIT in SODIUM CHLORIDE 0.9% 100 ML IV ONE; +LACTATED RINGERS 1,000 ML IV ONE; +MAGNESIUM SULFATE 16.24 MEQ in EMPTY SYRINGE 1 SYR IV ONE; +MANNITOL 25% 12.5 GM/50 ML VIAL IV ONE; +METOPROLOL TARTRATE 12.5 MG TAB PO ONE; +MUPIROCIN 2% OINT 22 GM TUBE NASAL ONE; +NITROGLYCERIN SL TABS 0.4 MG TAB SUBLINGUAL ONE; -NITROGLYCERIN SL TABS 0.4 MG TAB SUBLINGUAL PRN; +NITROGLYCERIN-D5W PMX 25 MG/250 ML BTL IV ONE; +NITROGLYCERIN-D5W PMX 50 MG in DEXTROSE/WATER 1 250ML.BAG IV ONE; +NOREPINEPHRINE 4 MG in SODIUM CHLORIDE 0.9% 250 ML IV ONE; +PAPAVERINE 360 MG in SODIUM CHLORIDE 0.9% 90 ML IV ONE; +PHENYLEPHRINE 10 MG/ML VIAL IV ONE; +PHENYLEPHRINE 40 MG in SODIUM CHLORIDE 0.9% 250 ML IV ONE; +PROTAMINE SULFATE 10 MG/ML 25 ML VIAL IV ONE; +PROTAMINE SULFATE 250 MG in EMPTY BAG 1 BAG IV ONE; +SODIUM BICARB 8.4% 50 ML SYR (1 MEQ/ML) IV ONE; +SODIUM CHLORIDE 0.9% 1,000 ML IV ONE; -SODIUM CHLORIDE 0.9% 1,000 ML in EMPTY BAG 1 BAG IV SCH; +TRANEXAMIC ACID 2,000 MG in SODIUM CHLORIDE 0.9% 80 ML IV ONE; +ceFAZolin 1,000 MG in SODIUM CHLORIDE 0.9% IRRIGATIO 1,000 ML IRRIGATION ONE; +propofoL 1,000 MG/100 ML VIAL IV ONE
[2023-06-07 06:15] LABS: Glucose,Whole Blood 153 mg/dL (70-110)
[2023-06-07] MEDS ORDERED: MIDAZOLAM HCL 10 MG/10 ML VIAL ONE (07:58)
[2023-06-07] MEDS ORDERED: VECURONIUM 10 MG VIAL IV ONE (07:58)
[2023-06-07] MEDS ORDERED: INSULIN REGULAR 100 UNIT/ML VIAL (IV) ONE (07:58)
[2023-06-07] MEDS ORDERED: ALBUMIN HUMAN 5% (25gm) 500 ML VIAL IVPB ONE (07:58)
[2023-06-07] MEDS ORDERED: fentaNYL (PF) 50 MCG/ML 50 ML VIAL ONE (07:58)
[2023-06-07] MEDS ORDERED: PROTAMINE SULFATE 10 MG/ML 25 ML VIAL IV ONE (07:58)
[2023-06-07] MEDS ORDERED: HEPARIN SODIUM,PORCINE 5,000 UNIT/ML 1 ML VIAL ONE (07:58)
[2023-06-07] MEDS ORDERED: ALBUMIN HUMAN 5% (12.5gm) 250 ML BOTTLE IVPB ONE (07:58)
[2023-06-07] MEDS ORDERED: LABETALOL 5 MG/ML VIAL MDV ONE (07:58)
[2023-06-07] MEDS ORDERED: HEPARIN SODIUM,PORCINE 10,000 UNIT/ML 1 ML VIAL ONE (07:58)
[2023-06-07] MEDS ORDERED: SUCCINYLCHOLINE CHLORIDE 200 MG/10 ML VIAL IV ONE (07:58)
[2023-06-07] MEDS ORDERED: NITROGLYCERIN-D5W PMX 50 MG/250 ML BOTTLE IV ONE (07:58)
[2023-06-07 08:57] LABS: ABG Base Excess 1.4 mmol/L; ABG Glucose Whole Blood 148 mg/dL (75-99); ABG HCO3 27 mmol/L (21-25); ABG Hematocrit 49 % (34.0-46.0); ABG Ionized Calcium 4.7 mg/dL (4.5-5.3); ABG Oxygen Saturation 98.4 % (94-97); ABG PCO2 45 mmHg (35-45); ABG PH 7.39 (7.35-7.45); ABG PO2 125 mmHg (83-108); ABG Potassium Whole Blood 4.1 mmol/L (3.4-4.5); ABG Sodium Whole Blood 139 mmol/L (135-146); ABG TCO2 28 mmol/L (19-24)
[2023-06-07 10:09] LABS: ABG Base Excess -0.1 mmol/L; ABG Glucose Whole Blood 139 mg/dL (75-99); ABG HCO3 27 mmol/L (21-25); ABG Hematocrit 45 % (34.0-46.0); ABG Ionized Calcium 4.8 mg/dL (4.5-5.3); ABG Oxygen Saturation 96.9 % (94-97); ABG PCO2 54 mmHg (35-45); ABG PH 7.31 (7.35-7.45); ABG PO2 93 mmHg (83-108); ABG Potassium Whole Blood 3.9 mmol/L (3.4-4.5); ABG Sodium Whole Blood 141 mmol/L (135-146); ABG TCO2 29 mmol/L (19-24)
[2023-06-07 10:31] LABS: ABG Base Excess 0.2 mmol/L; ABG Glucose Whole Blood 157 mg/dL (75-99); ABG HCO3 27 mmol/L (21-25); ABG Hematocrit 45 % (34.0-46.0); ABG Ionized Calcium 4.7 mg/dL (4.5-5.3); ABG Oxygen Saturation 94.8 % (94-97); ABG PCO2 52 mmHg (35-45); ABG PH 7.33 (7.35-7.45); ABG PO2 69 mmHg (83-108); ABG Potassium Whole Blood 3.9 mmol/L (3.4-4.5); ABG Sodium Whole Blood 140 mmol/L (135-146); ABG TCO2 29 mmol/L (19-24)
[2023-06-07 10:41] LABS: ABG Lactic Acid Whole Blood 1.5 mmol/L (0.5-1.6)
[2023-06-07 11:04] LABS: ABG Base Excess -0.6 mmol/L; ABG Glucose Whole Blood 124 mg/dL (75-99); ABG HCO3 27 mmol/L (21-25); ABG Hematocrit 43 % (34.0-46.0); ABG Ionized Calcium 4.7 mg/dL (4.5-5.3); ABG Oxygen Saturation 99.2 % (94-97); ABG PCO2 54 mmHg (35-45); ABG PH 7.31 (7.35-7.45); ABG Potassium Whole Blood 3.5 mmol/L (3.4-4.5); ABG Sodium Whole Blood 141 mmol/L (135-146); ABG TCO2 28 mmol/L (19-24)
[2023-06-07 11:09] LABS: ABG Lactic Acid Whole Blood 1.4 mmol/L (0.5-1.6); ABG PO2 >420 mmHg (83-108)
[2023-06-07] MEDS ORDERED: DEXTROSE 5% IN WATER 100 ML with AMIODARONE 150 MG IV PRN (11:13)
[2023-06-07] MEDS ORDERED: ALBUMIN HUMAN 5% 250 ML in EMPTY BAG 1 BAG IVPB PRN (11:13)
[2023-06-07] MEDS ORDERED: AMIODARONE 450 MG in DEXTROSE 5% IN WATER 250 ML IV PRN ×2 (11:13)
[2023-06-07] MEDS ORDERED: Potassium Replacement Protocol 1 EACH MISC MISCELLANE PRN ×2 (11:13→14:26)
[2023-06-07] MEDS ORDERED: AMIODARONE 360 MG in DEXTROSE 5% IN WATER 200 ML IV PRN ×2 (11:13)
[2023-06-07] MEDS ORDERED: IPRATROPIUM-ALBUTEROL 3 ML NEB INHALATION PRN (11:13)
[2023-06-07] MEDS ORDERED: ONDANSETRON 4 MG/2 ML VIAL IVP PRN (11:13)
[2023-06-07] MEDS ORDERED: DEXTROSE 50% SYRINGE 50 ML IVP PRN ×2 (11:13)
[2023-06-07] MEDS ORDERED: Magnesium Replacement Protocol 1 EACH MISC MISCELLANE PRN ×2 (11:13→14:25)
[2023-06-07] MEDS ORDERED: DEXMEDETOMIDINE/0.9% NACL(PMX) 400 MCG in EMPTY BAG 1 BAG IV SCH (11:13)
[2023-06-07] MEDS ORDERED: CALCIUM GLUCONATE IN NACL 2 GM in SALINE 1 100ML.BAG IVPB PRN (11:13)
[2023-06-07] MEDS ORDERED: METOCLOPRAMIDE 5 MG/ML 2 ML VIAL IVP PRN (11:13)
[2023-06-07] MEDS ORDERED: NITROGLYCERIN-D5W PMX 50 MG in DEXTROSE/WATER 1 250ML.BAG IV SCH (11:13)
[2023-06-07] MEDS ORDERED: hydrALAZINE HCL 20 MG/ML 1 ML VIAL IVP PRN (11:13)
[2023-06-07] MEDS ORDERED: BENZOCAINE/MENTHOL LOZENG 1 EACH LOZENGE MUCOUS MEM PRN (11:13)
--- NOTE | 2023-06-07 11:21 | P.OP ---
Date of Procedure: 06/07/23 Preoperative Diagnosis: Coronary artery disease Postoperative Diagnosis: Same Procedure(s) Performed: Off-pump CABG 1 with left internal mammary artery to LAD, ligation of left atrial appendage with 35 mm AtriCure clip. Implants: 35mm AtriCure clip. Anesthesia: GETA Surgeon: Sam Coy Supply Chain Technician #1: Raymond Montana Estimated Blood Loss (ml): 150 IV fluids (ml): 2,200 Urine output (ml): 250 Pathology: none sent Condition: stable Disposition: ICU Indications for Procedure: 68-year-old male with history of previous stenting of LAD for myocardial infarction. He is followed by Dr. Vivar office. Recent echo recently demonstrated decreased left ventricular ejection fraction. Patient underwent cardiac catheterization demonstrating complete occlusion of the LAD at the stent with distal reconstitution of the vessel via left to left collateralization. Patient was referred for consideration for bypass surgery. Patient also had a right lower lobe nodule discovered on screening computed tomography scan. He was being worked up by Dr. Roberto. We contacted Dr. Roberto and he felt the patient should proceed with coronary surgery. Lesion in the long is 7 mm and was not FDG avid and he intends to just followed with serial CT scans. Location was not easily amenable to peripheral wedge during CABG surgery. Patient was scheduled for elective. He is a pack-a-day smoker with no intention of quitting. Operative Findings: Lungs showed typical changes of emphysema with anthracotic staining. LAD was a good vessel. The left atrial appendage had a narrow base and was a good target for clipping. There was no evidence of intraluminal thrombus by SERGIO. FARIA was a excellent conduit. LAD was a good target with good communication with a large diagonal branch. Description of Procedure: Patient was brought to the operating room and placed supine on operating table. General anesthesia was induced. Patient was intubated in SERGIO probe was placed. The anterior torso and lower extremities were sterilely prepped and draped. On the loading conditions of the general anesthesia, left ventricular function appeared reasonable with 50% ejection. There was good motion of the anterior wall. His no evidence of valvular dysfunction. Midline sternotomy was performed and the left hemisternum retracted upwards. The left internal mammary artery was harvested on a vascularized pedicle left intact on its origin from the subclavian. Was an excellent conduit. The left pleural space was drained with 32-Finnish chest tube. Standard sternal retractor was placed. Pericardium was opened in the midline. Patient was heparinized and ACT was maintained greater than 250 during grafting. 35mm AtriCure clip was applied at the base of the left atrial appendage. Mid LAD was stabilized just after the large diagonal branch. Was opened and blood flow control the 1.5 mm flow through. It was a 1.75 mm LAD. End-to-side anastomosis between the FARIA and the LAD was performed with running 7-0 Prolene suture. On completion anastomosis flow through was removed effectively probing the proximal and distal portions of the anastomosis. Suture was tied with good result and hemostasis. Inflow was open. It filled well and there was no kinking and there was adequate length. The TYE pedicle was tacked surrounding epicardium with 6-0 silk. Heart was lowered in anatomic position. Heparin was reversed with protamine. Good hemostasis was obtained throughout. The mediastinum was drained with 36-Finnish chest tube. The stent was irrigated with antibiotic solution. Sternum was closed with 8 sternal wires. Fascia was closed with 0 Ethibond. Subcutaneous and subcuticular layers with layers of Vicryl suture. Patient was transferred to ICU in stable condition.
[2023-06-07 11:38] LABS: Glucose,Whole Blood 123 mg/dL (70-110)
[2023-06-07] MEDS: LACTATED RINGERS 1,000 ML IV SCH (11:41)
[2023-06-07 11:45] LABS: Basophils % (A) 0 %; Eosinophils # (A) 0.2 k/uL (0-0.7); Eosinophils % (A) 2 %; HCT 43.2 % (39.0-53.0); HGB 13.9 gm/dL (13.0-17.5); Lymphocytes # (A) 1.3 k/uL (1.0-4.8); Lymphocytes % (A) 13 %; MCH 29.5 pg (25.0-35.0); MCHC 32.2 g/dL (31.0-37.0); MCV 91.6 fL (80.0-100.0); Mean Platelet Volume 7.7; Monocytes # (A) 0.5 k/uL (0-1.0); Monocytes % (A) 5 %; Neutrophils # (A) 7.8 k/uL (1.3-7.7); Neutrophils % (A) 80 %; Platelet Count 174 k/uL (150-450); RBC 4.72 m/uL (4.30-5.90); RDW 14.3 % (11.5-15.5); WBC 9.8 k/uL (3.8-10.6)
[2023-06-07] MEDS: CLEVIDIPINE BUTYRATE 25 MG in EMPTY BAG 1 BAG IV SCH ×2 (11:50→18:16)
[2023-06-07 11:53] LABS: Ionized Calcium 4.9 mg/dL (4.5-5.3)
[2023-06-07 12:02] LABS: INR 1.1 (<1.2); Partial Thromboplastin Time 29.6 sec (22.0-30.0); Prothrombin Time 11.2 sec (9.0-12.0)
[2023-06-07 12:03] LABS: ABG Base Excess 1.5 mmol/L; ABG HCO3 29 mmol/L (21-25); ABG Oxygen Saturation 99.3 % (94-97); ABG PCO2 62 mmHg (35-45); ABG PH 7.27 (7.35-7.45); ABG PO2 >400 mmHg (83-108); ABG TCO2 30 mmol/L (19-24)
[2023-06-07 12:03] LABS: ALT 19 U/L (4-49); AST 17 U/L (17-59); African American GFR (CKD) >90 (>60 ml/min/1.73 sqM); Albumin 3.4 g/dL (3.5-5.0); Alkaline Phosphatase 53 U/L (38-126); Anion Gap 9 mmol/L; Blood Urea Nitrogen 14 mg/dL (9-20); Calcium 8.1 mg/dL (8.4-10.2); Carbon Dioxide 24 mmol/L (22-30); Chloride 106 mmol/L (98-107); Glucose 117 mg/dL (74-99); Magnesium 1.6 mg/dL (1.6-2.3); Non-African American GFR(CKD) >90 (>60 ml/min/1.73 sqM); Potassium 3.9 mmol/L (3.5-5.1); Sodium 139 mmol/L (137-145); Total Bilirubin 0.5 mg/dL (0.2-1.3); Total Protein 5.6 g/dL (6.3-8.2)
[2023-06-07] MEDS: IPRATROPIUM-ALBUTEROL 3 ML NEB INHALATION SCH ×3 (12:11→20:39)
[2023-06-07 12:22] LABS: Glucose,Whole Blood 170 mg/dL (70-110)
--- NOTE | 2023-06-07 12:28 | XR ---
EXAMINATION TYPE: XR chest 1V portable DATE OF EXAM: 06/07/2023 COMPARISON: 06/01/2023 HISTORY: post cabg. TECHNIQUE: Single frontal view of the chest is obtained. FINDINGS: There is no focal air space opacity, pleural effusion, or pneumothorax seen. The cardiac silhouette size is within normal limits. The osseous structures are intact. ET and NG tube are note d. There is a [place] catheter tip overlying pulmonary outflow tract. The ET tube is approximately 5.7 cm above ruddy. Left-sided chest tube. No sizable pneumothorax. There is a trace of pneumomedias tinum along the left paratracheal region. Coarsened interstitium with no consolidation. Chronic left clavicular fracture. IMPRESSION: 1. Postoperative changes with a trace of left-sided pneumomediastinum.
[2023-06-07] MEDS: INSULIN REGULAR 100 UNIT in SODIUM CHLORIDE 0.9% 100 ML IV SCH (12:29)
--- NOTE | 2023-06-07 12:33 | P.ANPRN ---
Procedure Note - Anesthesia - Invasive Line Right Central Line Time Out Performed: Yes Date of Procedure: 06/07/23 Location of Patient: PreOp Preparation: Sterile Prep, Sterile Dressing Central Line Location: Internal Jugular Ultrasound Used: Yes Purpose - Visualization and Identification of Vasculature: Yes Image Stored and Saved: Yes Narrative: Central line placement per sterile protocol utilized. Informed consent obtained.Right Internal jugular vein cannulated under aseptic precautions. 3cc 1% lidocaine infiltrated initially after cleaning with iodine based prep and draping. Ultrasound used to locate the vein and Seldinger technique used. 9Fr introduced sheath inserted and after the finding the needle with airline pilot needle/catheter. The introducer sheath was sutured in place. After the insertion of PA Catheter the insertion site was dressed with biopatch and tegaderm. Patient tolerated the procedure well. Right Man [place] Location of Patient: PreOp Preparation: Sterile Prep, Sterile Dressing [place] Line Location: Internal Jugular Ultrasound Used: No Purpose - Visualization and Identification of Vasculature: No Narrative: Central line placement per sterile protocol utilized. 8Ff PA catheter threaded through the Right IJ introducer sheath under asepsis with continuous waveform monitoring. Catheter at 50 cms brandyn. - SERGIO Intraop Pre Bypass SERGIO Intraop - Anesthesia Indication: Coronary artery bypass graft Date of Procedure: 06/07/23 Pre-operative Diagnosis: Coronary artery disease Post-operative Diagnosis: Coronary artery disease status post CABG Surgeon: Sam Coy Left Ventricle: His ejection fraction 50-55% by fractional shortening method. No regional wall motion abnormalities noted. Ejection Fraction: Normal Regional Wall Motion Abnormalities: None Left Ventricle Hypertrophy: Yes (Mild) R. Ventricle Function: Normal Aortic Valve: Peak gradient 8 mmHg a mean gradient 4 mmHg. Sclerotic aortic valve seen. Anatomy: Trileaflet Aortic Stenosis: None Aortic Regurgitation: Trace Mitral Stenosis: None Mitral Regurgitation: None Tricuspid Stenosis: None Tricuspid Regurgitation: Trace Pulmonic Stenosis: None Pulmonic Regurgitation: Trace R. Atrial Dilation: No R. Atrial PFO: Yes (Small PFO seen) L. Atrial Dilation: No Aortic Dissection: No Aortic Calcification: None Plural Effusion: None - SERGIO Intraop Post Bypass SERGIO Intraop Post Bypass Procedure Performed: Coronary artery bypass graft off-pump Ejection Fraction: Normal R. Ventricle Function: Normal Mitral Valve: Unchanged Tricuspid: Unchanged Pulmonic: Unchanged Aortic Dissection: No
[2023-06-07 13:18] LABS: Glucose,Whole Blood 174 mg/dL (70-110)
[2023-06-07] MEDS: fentaNYL (PF) 50 MCG/ML 2 ML AMP IVP PRN ×2 (13:21→19:39)
[2023-06-07] MEDS: ACETAMINOPHEN IV (For NPO) 1,000 MG in EMPTY BAG 1 BAG IVPB SCH ×2 (13:36→17:34)
--- NOTE | 2023-06-07 13:51 | P.CNPUL ---
History of Present Illness Consult date: 06/07/23 Chief complaint: Coronary artery disease, currently bypass surgery History of present illness: This is a 68-year-old male patient with previous stenting of the LAD, quadrant underwent a recent cardiac catheterization the patient was found to have total occlusion of the LAD at the stent with distal reconstitution of the vessel via collaterals. Patient also had an echocardiogram that showed impaired LV function. Based on that, the patient was brought in today and he underwent an elective off-pump coronary artery bypass surgery 1 with FARIA to LAD. Estimated blood loss less than 50 mL PT I saw the patient immediately after he arrived to the intensive care unit. The patient was quite restless and he was placed on a combination of Precedex which was running at 1.4 mg/kg/h and propofol running at 30 mg/kg/m. The patient was on a mechanical ventilator. The patient was on assist-control mode at a rate of 12, tidal volume of 500, FiO2 of 100% and a PEEP of 5. The blood gas showed a pH of 7.27 with a pCO2 of 62 and pO2 of more than 400. Chest x-ray showed adequate expansion of both lungs. The patient and mediastinal and left lower chest tube. Output from the chest tubes are bloody and minimal at this point in time and those out of 150 mL and there is no evidence of air leak. The patient was hemodynamically stable. Cardiac output was 8 with an index of 4.0. The pulmonary artery pressures were 20/16. The patient is currently on nitroglycerin drip at 5 mcg/m and insulin drip at 2.5 units an hour. The patient is also on cleviprex drip running at 10 mg an hour.. The patient is doing otherwise well. Adequate urine output. No cardiac arrhythmias noted. Review of Systems ROS unobtainable: due to endotracheal tube Past Medical History Past Medical History: Diabetes Mellitus, Hyperlipidemia, Hypertension, Myocardial Infarction ([place]) Additional Past Medical History / Comment(s): seasonal allergies Last Myocardial Infarction Date:: 01/20/2017 History of Any Multi-Drug Resistant Organisms: None Reported Past Surgical History: Heart Catheterization With Stent Additional Past Surgical History / Comment(s): right HAND tendon transplant in 1977, Past Anesthesia/Blood Transfusion Reactions: Previous Problems w/ Anesthesia Additional Past Anesthesia/Blood Transfusion Reaction / Comment(s): Pt wakes up angry Date of Last Stent Placement:: 01/20/2017 Smoking Status: Current every day smoker - Past Family History Mother Family Medical History: Diabetes Mellitus Father Family Medical History: Diabetes Mellitus Medications and Allergies Home Medications Medication Instructions Recorded Confirmed Type Aspirin 81 mg PO DAILY #30 01/20/17 06/07/23 Rx Atorvastatin [Lipitor] 20 mg PO HS 05/04/23 06/07/23 History Losartan [Cozaar] 25 mg PO DAILY 05/04/23 06/07/23 History Metoprolol Succinate (ER) [Toprol 25 mg PO DAILY 05/04/23 06/07/23 History XL] Nitroglycerin Sl Tabs [Nitrostat] 0.4 mg SUBLINGUAL Q5M PRN 05/04/23 06/07/23 History Vision Shield 1 cap PO DAILY 05/04/23 06/07/23 History metFORMIN HCL [Glucophage] 500 mg PO BID 05/04/23 06/07/23 History Albuterol Inhaler [Ventolin Hfa 1 - 2 puff INHALATION Q6H PRN 06/01/23 06/01/23 History Inhaler] Multivitamins, Thera [Multivitamin 1 tab PO DAILY 06/01/23 06/07/23 History (formulary)] Allergies Allergy/AdvReac Type Severity Reaction Status Date / Time No Known Allergies Allergy Verified 06/07/23 05:53 Physical Exam Vitals: Vital Signs Temp Pulse Pulse Resp BP BP BP 06/07/23 13:00 96 22 123/65 06/07/23 12:45 96 22 129/66 06/07/23 12:30 99 21 129/67 06/07/23 12:19 96 13 06/07/23 12:15 96 16 142/77 06/07/23 12:11 96 13 06/07/23 12:06 06/07/23 12:02 06/07/23 12:00 93 12 06/07/23 11:45 90 12 06/07/23 11:30 97.5 F L 90 12 06/07/23 11:29 23 06/07/23 05:55 96.8 F L 86 18 136/76 137/73 Pulse Ox FiO2 06/07/23 13:00 92 L 06/07/23 12:45 92 L 06/07/23 12:30 92 L 06/07/23 12:19 06/07/23 12:15 96 40 06/07/23 12:11 06/07/23 12:06 40 06/07/23 12:02 100 06/07/23 12:00 97 06/07/23 11:45 98 06/07/23 11:30 98 100 06/07/23 11:29 06/07/23 05:55 96 Intake and Output 06/06/23 06/07/23 06/07/23 22:59 06:59 14:59 Intake Total 100 159.892 Output Total 375 Balance 100 -215.108 Intake: IV 100 53 Intake, IV Titration 106.892 Amount Clevidipine Butyrate 25 42.100 mg In Empty Bag 1 bag @ 1 MG/HR 2 mls/hr IV .Q24H SUDEEP Rx#:[id number] Dexmedetomidine/0.9% NaCl 11.370 (Pmx) 400 mcg In Empty Bag 1 bag @ Titrate IV . Q0M SUDEEP Rx#:[id number] Insulin Regular 100 unit 2.02 In Sodium Chloride 0.9% 100 ml @ Per Protocol IV .Q0M SUDEEP Rx#:[id number] propofoL 1,000 mg In 51.402 Empty Bag 1 bag @ Titrate IV .Q0M SUDEEP Rx#: [id number] Output: Urine 250 Estimated Blood Loss 125 Other: Weight 86.9 kg ABP, PAP, CO, CI - Last 8 Hours Arterial Blood Pressure 117/52 Arterial Blood Pressure 119/53 Arterial Blood Pressure 128/58 Arterial Blood Pressure 140/55 Arterial Blood Pressure 139/56 Pulmonary Artery Pressure 29/16 Pulmonary Artery Pressure 30/16 Pulmonary Artery Pressure 40/25 Pulmonary Artery Pressure 42/30 Pulmonary Artery Pressure 47/27 Pulmonary Artery Pressure 43/25 Cardiac Output 8.1 Cardiac Index 4 Gen. appearance, the patient is calm and comfortable on a combination of Precedex and propofol Head exam was generally normal. There was no scleral icterus or corneal arcus. Mucous membranes were moist. Neck was supple and without jugular venous distension, thyromegaly, or carotid bruits. Carotids were easily palpable bilaterally. There was no adenopathy. The patient has a right IJ [place] catheter in place. The patient also has orogastric and orotracheal tube and both of them are in good locations. Lungs sounds are diminished bilaterally. The patient is a mediastinal and pleural chest tube, no evidence of any air leak. Cardiac exam revealed the PMI to be normally situated and sized. The rhythm was regular and no extrasystoles were noted during several minutes of auscultation. The first and second heart sounds were normal and physiologic splitting of the second heart sound was noted. There were no murmurs, rubs, clicks, or gallops. The sternotomy site is dry clean and intact. Abdominal exam revealed normal bowel sounds. The abdomen was soft, non-tender, and without masses, organomegaly, or appreciable enlargement of the abdominal aorta. Examination of the extremities revealed easily palpable radial, femoral and peda l pulses. There was no cyanosis, clubbing or edema. Examination of the skin revealed no evidence of significant rashes, suspicious appearing nevi or other concerning lesions. Neurologically, the patient has quite sedated at this point in time. Moving all 4 extremities and responds to painful stimulation. Results - Laboratory Findings CBC and BMP: 06/07/23 11:13 06/07/23 11:35 ABG ABG pH 7.27 (7.35-7.45) L 06/07/23 12:00 ABG pCO2 62 mmHg (35-45) H 06/07/23 12:00 ABG pO2 >400 mmHg (83-108) H 06/07/23 12:00 ABG O2 Saturation 99.3 % (94-97) H 06/07/23 12:00 PT/INR, D-dimer PT 11.2 sec (9.0-12.0) 06/07/23 11:35 INR 1.1 (<1.2) 06/07/23 11:35 Abnormal lab findings: Abnormal Labs 06/01/23 06/07/23 06/07/23 11:31 06:11 07:30 Neutrophils # ABG pH ABG pCO2 ABG pO2 125 H ABG HCO3 27 H ABG Total CO2 28 H ABG O2 Saturation 98.4 H ABG Hematocrit 49 H ABG Glucose 148 H Creatinine Glucose POC Glucose (mg/dL) 153 H Calcium Total Protein Albumin Arterial Blood Glucose 148 H Crossmatch See Detail 06/07/23 06/07/23 06/07/23 07:30 07:30 07:30 Neutrophils # ABG pH 7.31 L 7.33 L 7.31 L ABG pCO2 54 H 52 H 54 H ABG pO2 69 L >420 H ABG HCO3 27 H 27 H 27 H ABG Total CO2 29 H 29 H 28 H ABG O2 Saturation 99.2 H ABG Hematocrit ABG Glucose 139 H 157 H 124 H Creatinine Glucose POC Glucose (mg/dL) Calcium Total Protein Albumin Arterial Blood Glucose 139 H 157 H 124 H Crossmatch 06/07/23 06/07/23 06/07/23 11:13 11:35 11:36 Neutrophils # 7.8 H ABG pH ABG pCO2 ABG pO2 ABG HCO3 ABG Total CO2 ABG O2 Saturation ABG Hematocrit ABG Glucose Creatinine 0.58 L Glucose 117 H POC Glucose (mg/dL) 123 H Calcium 8.1 L Total Protein 5.6 L Albumin 3.4 L Arterial Blood Glucose Crossmatch 06/07/23 06/07/23 06/07/23 12:00 12:21 13:17 Neutrophils # ABG pH 7.27 L ABG pCO2 62 H ABG pO2 >400 H ABG HCO3 29 H ABG Total CO2 30 H ABG O2 Saturation 99.3 H ABG Hematocrit ABG Glucose Creatinine Glucose POC Glucose (mg/dL) 170 H 174 H Calcium Total Protein Albumin Arterial Blood Glucose Crossmatch - Diagnostic Findings Chest x-ray: image reviewed Assessment and Plan Plan: Coronary artery disease with complete occlusion of the LAD with collateral circulation. The patient underwent an off-pump single-vessel bypass surgery with FARIA to LAD. The patient is currently postop day #0. For now, the patient is hemodynamically stable with adequate cardiac output and index. Postthoracotomy, currently intubated on a mechanical ventilator. Chest x-ray was noted. Blood gas was noted and the necessary ventilator changes will be done. The patient has a mediastinal and left lower chest tube. Hypertension with elevated blood pressure and the patient is currently on a combination of nitroglycerin and clevidipine drip Pulmonary nodule measuring 7 mm in size in the right lower lobe, not at avid Chronic systolic heart failure. Cardiac output and index is adequate at this point in time. Mild to moderate COPD with an FEV1 of 62% of predicted and a diffusion capacity of 44% of predicted Diabetes mellitus2 Hyperlipidemia History of smoking Plan Increase the respiratory rate of the 24 and dropped a tidal volume to 50% Keep the sedation with accommodation of Precedex and propofol was gradually weaned Overall hemodynamically stable Continue currently Cleviprex drip for blood pressure control Continue to be some drip Continue insulin drip Monitor THE CHEST TUBES Chest x-ray was noted Blood gas was noted Anticipate extubation within next few hours. We'll continue to follow make further recommendations based on the overall pulmonary progress. The pulmonary nodule will be followed up on outpatient basis by his recruiting and selection consultant, Dr. Bashir
[2023-06-07 14:04] LABS: Glucose,Whole Blood 170 mg/dL (70-110)
[2023-06-07 14:50] LABS: Glucose,Whole Blood 158 mg/dL (70-110)
[2023-06-07 15:09] LABS: Basophils % (A) 0 %; Eosinophils % (A) 0 %; HCT 44.5 % (39.0-53.0); HGB 14.6 gm/dL (13.0-17.5); Lymphocytes # (A) 0.9 k/uL (1.0-4.8); Lymphocytes % (A) 10 %; MCH 29.4 pg (25.0-35.0); MCHC 32.8 g/dL (31.0-37.0); MCV 89.5 fL (80.0-100.0); Mean Platelet Volume 7.5; Monocytes # (A) 0.3 k/uL (0-1.0); Monocytes % (A) 3 %; Neutrophils # (A) 8.4 k/uL (1.3-7.7); Neutrophils % (A) 87 %; Platelet Count 164 k/uL (150-450); RBC 4.97 m/uL (4.30-5.90); WBC 9.7 k/uL (3.8-10.6)
[2023-06-07] MEDS: MAGNESIUM SULFATE-D5W PMX 1 GM in DEXTROSE/WATER 1 100ML.BAG IVPB SCH ×2 (15:17→17:28)
[2023-06-07 15:42] LABS: ABG Base Excess 0.7 mmol/L; ABG HCO3 26 mmol/L (21-25); ABG Oxygen Saturation 96.9 % (94-97); ABG PCO2 43 mmHg (35-45); ABG PH 7.38 (7.35-7.45); ABG PO2 86 mmHg (83-108); ABG TCO2 27 mmol/L (19-24)
[2023-06-07] MEDS: HEPARIN SODIUM,PORCINE 5,000 UNIT/ML 1 ML VIAL SQ SCH ×2 (15:50→23:13)
[2023-06-07 16:16] LABS: Glucose,Whole Blood 131 mg/dL (70-110)
[2023-06-07] MEDS: POTASSIUM CHLORIDE 10 MEQ in WATER FOR INJECTION 1 100ML.BAG IVPB SCH ×2 (16:43→17:35)
[2023-06-07 17:13] LABS: Glucose,Whole Blood 113 mg/dL (70-110)
[2023-06-07] MEDS: NICOTINE 14MG/24HR PATCH TRANSDERM SCH (17:29)
[2023-06-07] MEDS: KETOROLAC 15 MG/ML 1 ML VIAL IVP SCH ×2 (17:32→23:13)
[2023-06-07 18:16] LABS: Glucose,Whole Blood 152 mg/dL (70-110)
[2023-06-07 18:22] LABS: Basophils % (A) 0 %; Eosinophils % (A) 0 %; HCT 45.4 % (39.0-53.0); HGB 14.9 gm/dL (13.0-17.5); Lymphocytes # (A) 0.6 k/uL (1.0-4.8); Lymphocytes % (A) 6 %; MCH 29.6 pg (25.0-35.0); MCHC 32.9 g/dL (31.0-37.0); MCV 89.8 fL (80.0-100.0); Mean Platelet Volume 7.3; Monocytes # (A) 0.4 k/uL (0-1.0); Monocytes % (A) 4 %; Neutrophils # (A) 9.6 k/uL (1.3-7.7); Neutrophils % (A) 89 %; Platelet Count 146 k/uL (150-450); RBC 5.05 m/uL (4.30-5.90); WBC 10.7 k/uL (3.8-10.6)
[2023-06-07 18:58] LABS: Glucose,Whole Blood 160 mg/dL (70-110)
[2023-06-07] MEDS ORDERED: HYDROcodone/APAP 10-325MG 1 EACH TAB PO PRN (19:00)
[2023-06-07 20:00] LABS: Glucose,Whole Blood 154 mg/dL (70-110)
[2023-06-07] MEDS ORDERED: ATORVASTATIN 20 MG TAB PO SCH (21:00)
[2023-06-07] MEDS: SENNOSIDES-DOCUSATE SODIUM 1 EACH TAB PO SCH (21:12)
[2023-06-07] MEDS: METOPROLOL TARTRATE 25 MG TAB PO SCH (21:13)
[2023-06-07] MEDS: HYDROcodone/APAP 5-325MG 1 EACH TAB PO PRN (21:13)
[2023-06-07 21:21] LABS: Glucose,Whole Blood 120 mg/dL (70-110)
[2023-06-07 21:58] LABS: Glucose,Whole Blood 102 mg/dL (70-110)
[2023-06-07 23:03] LABS: Glucose,Whole Blood 135 mg/dL (70-110)
[2023-06-08 00:10] LABS: Glucose,Whole Blood 130 mg/dL (70-110)
[2023-06-08 01:00] LABS: Glucose,Whole Blood 110 mg/dL (70-110)
[2023-06-08] MEDS: HYDROcodone/APAP 5-325MG 1 EACH TAB PO PRN (01:04)
[2023-06-08 02:02] LABS: Glucose,Whole Blood 123 mg/dL (70-110)
[2023-06-08 02:59] LABS: Glucose,Whole Blood 129 mg/dL (70-110)
[2023-06-08 04:04] LABS: Glucose,Whole Blood 114 mg/dL (70-110)
[2023-06-08 05:00] LABS: Glucose,Whole Blood 139 mg/dL (70-110)
[2023-06-08 05:13] LABS: Basophils % (A) 0 %; Eosinophils % (A) 0 %; HCT 45.3 % (39.0-53.0); Lymphocytes # (A) 0.8 k/uL (1.0-4.8); Lymphocytes % (A) 10 %; MCH 29.4 pg (25.0-35.0); MCHC 33.1 g/dL (31.0-37.0); MCV 88.7 fL (80.0-100.0); Mean Platelet Volume 7.7; Monocytes # (A) 0.3 k/uL (0-1.0); Monocytes % (A) 4 %; Neutrophils # (A) 7.3 k/uL (1.3-7.7); Neutrophils % (A) 85 %; Platelet Count 155 k/uL (150-450); RBC 5.11 m/uL (4.30-5.90); WBC 8.6 k/uL (3.8-10.6)
[2023-06-08 05:15] LABS: ALT 18 U/L (4-49); AST 28 U/L (17-59); African American GFR (CKD) >90 (>60 ml/min/1.73 sqM); Albumin 3.3 g/dL (3.5-5.0); Alkaline Phosphatase 62 U/L (38-126); Anion Gap 8 mmol/L; Blood Urea Nitrogen 10 mg/dL (9-20); Calcium 8.4 mg/dL (8.4-10.2); Carbon Dioxide 22 mmol/L (22-30); Chloride 102 mmol/L (98-107); Glucose 104 mg/dL (74-99); Magnesium 1.9 mg/dL (1.6-2.3); Non-African American GFR(CKD) >90 (>60 ml/min/1.73 sqM); Potassium 3.6 mmol/L (3.5-5.1); Sodium 132 mmol/L (137-145); Total Protein 5.5 g/dL (6.3-8.2)
[2023-06-08 05:36] LABS: Ionized Calcium 4.7 mg/dL (4.5-5.3)
[2023-06-08] MEDS ORDERED: MAGNESIUM SULFATE-D5W PMX 1 GM in DEXTROSE/WATER 1 100ML.BAG IVPB ONE (05:44)
[2023-06-08] MEDS: KETOROLAC 15 MG/ML 1 ML VIAL IVP SCH ×3 (05:59→18:18)
[2023-06-08] MEDS ORDERED: POTASSIUM CHLORIDE ER 20 MEQ TAB.ER PO SCH (06:00)
[2023-06-08] MEDS: LACTATED RINGERS 1,000 ML IV SCH (06:00)
[2023-06-08 06:12] LABS: Glucose,Whole Blood 133 mg/dL (70-110)
[2023-06-08 06:57] LABS: Glucose,Whole Blood 146 mg/dL (70-110)
--- NOTE | 2023-06-08 07:28 | P.CRDCN ---
History of Present Illness Consult date: 06/08/23 Chief complaint: Status post open heart History of present illness: The patient is a 68-year-old gentleman who sees Dr. 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 Recently he underwent a stress test and that came in to be abnormal. The stenosis was myocardial perfusion imaging services and that showed anterior apical fixed defect with cardiomyopathy. Subsequently an echocardiogram was performed and confirmed the cardiomyopathy. In the light of that heart catheterization was advised. The patient underwent a heart catheterization and that revealed chronic total occlusion of the left anterior descending artery. He was referred for open heart surgery and he underwent yesterday CABG 1 with FARIA to LAD. Patient was extubated yesterday. June [id number] The patient was seen and evaluated this morning. Overall he seems to be stable. He was sitting in the chair position to look in any pain or distress. He is maintaining normal sinus mechanism. Currently he isn't on amiodarone IV. Beside that he is on dual antiplatelet therapy and only low intensity statin. I am going to increase the dose of statin from no intensity high intensity. Beside that he is on beta kamilla. Blood work appeared to be stable. Chest x- ray appeared to be stable as well. Examination is remarkable for diminished breathing sounds bilaterally Assessment CAD with BODY MASKER of the LAD. Status post CABG 1 with FARIA into LAD Ischemic cardiomyopathy Hypertension Dyslipidemia Plan Increase the dose of statin into high intensity Continue dual antiplatelet therapy Continue anti-ischemic medication was beta kamilla Consider adding ADAMS inhibitor as well as Aldactone down the line Follow-up with the patient Past Medical History Past Medical History: Diabetes Mellitus, Hyperlipidemia, Hypertension, Myocardia l Infarction (ME) Additional Past Medical History / Comment(s): seasonal allergies Last Myocardial Infarction Date:: 01/20/2017 History of Any Multi-Drug Resistant Organisms: None Reported Past Surgical History: Heart Catheterization With Stent Additional Past Surgical History / Comment(s): right HAND tendon transplant in 1977, Past Anesthesia/Blood Transfusion Reactions: Previous Problems w/ Anesthesia Additional Past Anesthesia/Blood Transfusion Reaction / Comment(s): Pt wakes up angry Date of Last Stent Placement:: 01/20/2017 Smoking Status: Current every day smoker - Past Family History Mother Family Medical History: Diabetes Mellitus Father Family Medical History: Diabetes Mellitus Medications and Allergies Home Medications Medication Instructions Recorded Confirmed Type Aspirin 81 mg PO DAILY #30 01/20/17 06/07/23 Rx Atorvastatin [Lipitor] 20 mg PO HS 05/04/23 06/07/23 History Losartan [Cozaar] 25 mg PO DAILY 05/04/23 06/07/23 History Metoprolol Succinate (ER) [Toprol 25 mg PO DAILY 05/04/23 06/07/23 History XL] Nitroglycerin Sl Tabs [Nitrostat] 0.4 mg SUBLINGUAL Q5M PRN 05/04/23 06/07/23 History Vision Shield 1 cap PO DAILY 05/04/23 06/07/23 History metFORMIN HCL [Glucophage] 500 mg PO BID 05/04/23 06/07/23 History Albuterol Inhaler [Ventolin Hfa 1 - 2 puff INHALATION Q6H PRN 06/01/23 06/01/23 History Inhaler] Multivitamins, Thera [Multivitamin 1 tab PO DAILY 06/01/23 06/07/23 History (formulary)] Allergies Allergy/AdvReac Type Severity Reaction Status Date / Time No Known Allergies Allergy Verified 06/07/23 05:53 Physical Exam Vitals: Vital Signs Temp Pulse Resp BP Pulse Ox FiO2 06/08/23 07:00 84 20 119/76 93 L 06/08/23 06:45 92 22 119/76 92 L 06/08/23 06:30 91 18 119/76 93 L 06/08/23 06:15 82 26 H 119/76 96 06/08/23 06:00 85 42 H 94 L 06/08/23 05:45 92 45 H 148/72 92 L 06/08/23 05:30 93 39 H 91 L 06/08/23 05:15 87 34 H 93 L 06/08/23 05:00 93 20 120/69 93 L 06/08/23 04:45 91 18 92 L 06/08/23 04:30 90 16 94 L 06/08/23 04:15 87 20 120/69 94 L 06/08/23 04:00 93 21 122/66 91 L 06/08/23 03:45 89 20 122/66 94 L 06/08/23 03:30 90 22 94 L 06/08/23 03:15 92 23 122/66 95 06/08/23 03:00 93 21 94 L 06/08/23 02:45 92 15 93 L 06/08/23 02:30 92 12 90 L 06/08/23 02:15 95 32 H 93 L 06/08/23 02:00 94 21 119/64 94 L 06/08/23 01:45 88 20 96 06/08/23 01:30 86 20 95 06/08/23 01:15 85 20 113/66 95 06/08/23 01:00 84 20 95 06/08/23 00:45 92 21 93 L 06/08/23 00:30 94 21 92 L 06/08/23 00:15 92 26 H 119/67 93 L 06/08/23 00:00 94 19 92 L 06/07/23 23:45 94 20 93 L 06/07/23 23:30 93 27 H 94 L 06/07/23 23:15 93 33 H 94 L 06/07/23 23:00 92 33 H 127/67 93 L 06/07/23 22:45 93 32 H 127/67 95 06/07/23 22:30 93 26 H 127/67 97 06/07/23 22:15 91 22 127/67 95 06/07/23 22:00 92 33 H 95 06/07/23 21:45 95 37 H 95 06/07/23 21:30 95 27 H 95 06/07/23 21:15 99 24 122/65 94 L 06/07/23 21:00 96 26 H 95 06/07/23 20:51 93 06/07/23 20:45 91 16 98 06/07/23 20:40 89 06/07/23 20:30 94 16 95 06/07/23 20:15 94 15 114/59 94 L 06/07/23 20:00 96 17 117/59 93 L 06/07/23 19:00 92 21 125/66 93 L 06/07/23 18:45 87 27 H 125/66 92 L 06/07/23 18:30 86 22 125/66 96 06/07/23 18:15 80 23 125/66 97 06/07/23 18:00 80 21 126/63 96 06/07/23 17:45 79 18 126/63 96 06/07/23 17:30 75 24 126/63 94 L 06/07/23 17:15 76 26 H 123/66 93 L 06/07/23 17:00 75 15 120/64 96 06/07/23 16:45 75 20 114/64 95 06/07/23 16:30 69 13 118/63 92 L 06/07/23 16:15 69 19 121/64 93 L 06/07/23 16:06 66 16 06/07/23 16:00 67 18 114/60 98 06/07/23 15:53 65 16 06/07/23 15:45 63 18 119/75 96 06/07/23 15:30 57 L 14 108/60 94 L 06/07/23 15:15 62 20 114/70 95 06/07/23 15:00 59 L 24 113/62 94 L 40 06/07/23 14:45 66 24 102/59 94 L 06/07/23 14:30 65 24 99/55 93 L 06/07/23 14:15 64 24 119/65 91 L 06/07/23 14:00 83 24 113/63 92 L 40 06/07/23 13:45 84 24 124/67 91 L 06/07/23 13:30 90 24 124/67 91 L 06/07/23 13:15 93 24 120/66 92 L 06/07/23 13:00 96 22 123/65 92 L 06/07/23 12:45 96 22 129/66 92 L 06/07/23 12:30 99 21 129/67 92 L 06/07/23 12:19 96 13 06/07/23 12:15 96 16 142/77 96 40 06/07/23 12:11 96 13 06/07/23 12:06 40 06/07/23 12:02 100 06/07/23 12:00 93 12 97 100 06/07/23 11:45 90 12 98 06/07/23 11:30 97.5 F L 90 12 98 100 06/07/23 11:29 23 06/07/23 11:25 100 Intake and Output 06/07/23 06/08/23 06/08/23 22:59 06:59 14:59 Intake Total 1271.566 526.384 199 Output Total 1010 720 40 Balance 261.566 -193.616 159 Intake: IV 1028.0 512 199 ACETAMINOPHEN IV (For NPO 100 ) 1,000 mg In Empty Bag 1 bag @ 400 mls/hr IVPB Q6HR SUDEEP Rx#:[id number] Cardiac Output (0.9 70 40 40 Sodium Chloride) Lactated Ringers 1,000 ml 330 400 50 @ 20 mls/hr IV .Q24H SUDEEP Rx#:[id number] Magnesium Sulfate-D5w Pmx 200 100 1 gm In Dextrose/Water 1 100ml.bag @ 100 mls/hr IVPB Q1H SUDEEP Rx#: [id number] Nitroglycerin-D5w Pmx 50 6.0 mg In Dextrose/Water 1 250ml.bag @ 5 MCG/MIN 1.5 mls/hr IV .Q24H SUDEEP Rx#: [id number] Potassium Chloride 10 meq 200 In Water For Injection 1 100ml.bag @ 100 mls/hr IVPB Q1H SUDEEP Rx#: [id number] Pressure Bag (0.9 Sodium 72 72 9 Chloride) ceFAZolin 2 gm In Sodium 50 Chloride 0.9% 50 ml @ 100 mls/hr IVPB Q8HR SUDEEP Rx# :[id number] Intake, IV Titration 243.566 14.384 Amount Amiodarone 360 mg In 189.932 Dextrose 5% in Water 200 ml @ 1 MG/MIN 34.533 mls/ hr IV .Q6H PRN Rx#: [id number] Clevidipine Butyrate 25 22.799 mg In Empty Bag 1 bag @ 1 MG/HR 2 mls/hr IV .Q24H SUDEEP Rx#:[id number] Dexmedetomidine/0.9% NaCl 7.967 (Pmx) 400 mcg In Empty Bag 1 bag @ Titrate IV . Q0M SUDEEP Rx#:[id number] Insulin Regular 100 unit 22.868 14.384 In Sodium Chloride 0.9% 100 ml @ Per Protocol IV .Q0M SUDEEP Rx#:[id number] Output: Chest Tube Drainage 180 350 10 Left Pleural/Mediastinal 180 350 10 Urine 830 370 30 Other: Voiding Method Indwelling Catheter Indwelling Catheter Weight 91 kg ABP, PAP, CO, CI - Last 8 Hours Arterial Blood Pressure 105/39 Arterial Blood Pressure 115/43 Arterial Blood Pressure 103/37 Arterial Blood Pressure 120/41 Arterial Blood Pressure 151/144 Arterial Blood Pressure 143/52 Arterial Blood Pressure 130/50 Arterial Blood Pressure 122/59 Arterial Blood Pressure 136/52 Arterial Blood Pressure 219/219 Arterial Blood Pressure 137/53 Arterial Blood Pressure 129/62 Arterial Blood Pressure 113/50 Arterial Blood Pressure 130/53 Arterial Blood Pressure 128/63 Arterial Blood Pressure 133/49 Arterial Blood Pressure 135/49 Arterial Blood Pressure 131/48 Arterial Blood Pressure 130/48 Arterial Blood Pressure 157/151 Arterial Blood Pressure 124/121 Pulmonary Artery Pressure 15/0 Pulmonary Artery Pressure 18/1 Pulmonary Artery Pressure 20/2 Pulmonary Artery Pressure 17/3 Pulmonary Artery Pressure 18/1 Pulmonary Artery Pressure 17/0 Pulmonary Artery Pressure 39/12 Pulmonary Artery Pressure 47/14 Pulmonary Artery Pressure 44/11 Pulmonary Artery Pressure 38/12 Pulmonary Artery Pressure 35/15 Pulmonary Artery Pressure 29/13 Pulmonary Artery Pressure 28/11 Pulmonary Artery Pressure 29/11 Pulmonary Artery Pressure 23/10 Pulmonary Artery Pressure 25/12 Pulmonary Artery Pressure 24/11 Pulmonary Artery Pressure 30/15 Pulmonary Artery Pressure 39/21 Pulmonary Artery Pressure 37/16 Pulmonary Artery Pressure 35/17 Pulmonary Artery Pressure 28/12 Pulmonary Artery Pressure 32/9 Pulmonary Artery Pressure 28/11 Pulmonary Artery Pressure 25/9 Pulmonary Artery Pressure 27/8 Pulmonary Artery Pressure 26/8 Pulmonary Artery Pressure 25/9 Pulmonary Artery Pressure 26/8 Pulmonary Artery Pressure 30/10 Pulmonary Artery Pressure 30/10 Cardiac Output 4.5 Cardiac Output 6.1 Cardiac Output 7.6 Cardiac Index 2.2 Cardiac Index 3 Cardiac Index 3.6 Results 06/08/23 04:05 06/08/23 04:05 Cardiac Enzymes 06/07/23 06/08/23 Range/Units 11:35 04:05 AST 17 28 (17-59) U/L Coagulation 06/07/23 Range/Units 11:35 PT 11.2 (9.0-12.0) sec APTT 29.6 (22.0-30.0) sec CBC 06/07/23 06/07/23 06/07/23 Range/Units 11:13 13:54 18:10 WBC 9.8 9.7 10.7 H (3.8-10.6) k/uL RBC 4.72 4.97 5.05 (4.30-5.90) m/uL Hgb 13.9 14.6 14.9 (13.0-17.5) gm/dL Hct 43.2 44.5 45.4 (39.0-53.0) % Plt Count 174 164 146 L (150-450) k/uL 06/08/23 Range/Units 04:05 WBC 8.6 (3.8-10.6) k/uL RBC 5.11 (4.30-5.90) m/uL Hgb 15.0 (13.0-17.5) gm/dL Hct 45.3 (39.0-53.0) % Plt Count 155 (150-450) k/uL Comprehensive Metabolic Panel 06/07/23 06/08/23 Range/Units 11:35 04:05 Sodium 139 132 L (137-145) mmol/L Potassium 3.9 3.6 (3.5-5.1) mmol/L Chloride 106 102 (98-107) mmol/L Carbon Dioxide 24 22 (22-30) mmol/L BUN 14 10 (9-20) mg/dL Creatinine 0.58 L 0.49 L (0.66-1.25) mg/dL Glucose 117 H 104 H (74-99) mg/dL Calcium 8.1 L 8.4 (8.4-10.2) mg/dL AST 17 28 (17-59) U/L ALT 19 18 (4-49) U/L Alkaline Phosphatase 53 62 (38-126) U/L Total Protein 5.6 L 5.5 L (6.3-8.2) g/dL Albumin 3.4 L 3.3 L (3.5-5.0) g/dL Current Medications Generic Name Dose Route Start Last Admin Trade Name Freq PRN Reason Stop Dose Admin Hydrocodone Bitart/Acetaminophen 1 each 06/07/23 19:00 06/08/23 01:04 Hydrocodone/Apap 5-325mg 1 Each Tab PO 1 each Q4HR PRN Administration Moderate Pain (Scale 4 to 6) Hydrocodone Bitart/Acetaminophen 1 each 06/07/23 19:00 06/08/23 04:12 Hydrocodone/Apap 10-325mg 1 Each Tab PO 1 each Q4HR PRN Administration Severe Pain (Scale 7 to 10) Albuterol/Ipratropium 3 ml 06/07/23 11:13 Ipratropium-Albuterol 3 Ml Neb INHALATION RT-Q2H PRN Shortness Of Breath Or Wheezing Albuterol/Ipratropium 3 ml 06/07/23 20:00 06/07/23 20:39 Ipratropium-Albuterol 3 Ml Neb INHALATION 3 ml RT-QID SUDEEP Administration Aspirin 325 mg 06/08/23 09:00 Aspirin 325 Mg Tab PO DAILY SUDEEP Atorvastatin Calcium 20 mg 06/07/23 21:00 06/07/23 21:12 Atorvastatin 20 Mg Tab PO 20 mg HS SUDEEP Administration Benzocaine/Menthol 1 each 06/07/23 11:13 Benzocaine/Menthol Lozeng 1 Each Lozenge MUCOUS MEM Q2H PRN Sore Throat Bisacodyl 10 mg 06/08/23 09:00 Bisacodyl 10 Mg Supp RECTAL DAILY PRN Constipation Clopidogrel Bisulfate 75 mg 06/08/23 09:00 Clopidogrel 75 Mg Tab PO DAILY SUDEEP Dextrose/Water 25 ml 06/07/23 11:13 Dextrose 50% Syringe 50 Ml IVP PER PROTOCOL PRN Hypoglycemia Protocol Dextrose/Water 50 ml 06/07/23 11:13 Dextrose 50% Syringe 50 Ml IVP PER PROTOCOL PRN Hypoglycemia Protocol Fentanyl Citrate 50 mcg 06/07/23 12:03 06/07/23 19:39 Fentanyl (Pf) 50 Mcg/Ml 2 Ml Amp IVP 50 mcg Q4HR PRN Administration Severe Pain (Scale 7 to 10) Heparin Sodium (Porcine) 5,000 unit 06/07/23 16:00 06/07/23 23:13 Heparin Sodium,Porcine 5,000 Unit/Ml 1 Ml Vial SQ 5,000 unit Q8HR SUDEEP Administration Hydralazine HCl 10 mg 06/07/23 11:13 Hydralazine Hcl 20 Mg/Ml 1 Ml Vial IVP Q1H PRN Blood Pressure - High Clevidipine 25 mg/ IV Solution 50 mls @ 2 mls/hr 06/07/23 11:13 06/07/23 20:18 IV 0 mg/hr .Q24H SUDEEP 0 mls/hr Titration Protocol 1 MG/HR Amiodarone HCl 150 mg/ 103 mls @ 618 mls/hr 06/07/23 11:13 Dextrose/Water IV .Q10M PRN A.FIB/FLUTTER Protocol Amiodarone HCl 360 mg/ 207.2 mls @ 34.533 mls/hr 06/07/23 11:13 06/07/23 18:15 Dextrose/Water IV 0 mg/min .Q6H PRN 0 mls/hr A.FIB/FLUTTER Titration Protocol 1 MG/MIN Amiodarone HCl 450 mg/ 250 mls @ 16.667 mls/hr 06/07/23 11:13 06/07/23 18:37 Dextrose/Water IV 0.5 mg/min .Q15H PRN 16.667 mls/hr A.FIB/FLUTTER Administration Protocol 0.5 MG/MIN Albumin Human 250 ml/ IV 250 mls @ 250 mls/hr 06/07/23 11:13 Solution IVPB 06/09/23 11:14 Q1HR PRN For Volume Protocol Lactated Ringer's 1,000 mls @ 20 mls/hr 06/07/23 11:13 06/08/23 06:00 Lactated Ringers IV 50 mls/hr .Q24H SUDEEP Administration Cefazolin Sodium 2 gm/ Sodium 50 mls @ 100 mls/hr 06/07/23 16:00 06/07/23 23:13 Chloride IVPB 06/08/23 08:29 100 mls/hr Q8HR SUDEEP Administration Protocol Calcium Gluconate/Sodium 100 mls @ 100 mls/hr 06/07/23 11:13 Chloride 2 gm/ IV Solution IVPB 06/13/23 23:00 ONCE PRN Ionized Calcium less than 4.4 Insulin Human Regular 100 unit 101 mls @ 0 mls/hr 06/07/23 11:13 06/08/23 06:57 / Sodium Chloride IV 3 unit/hr .Q0M SUDEEP 3.03 mls/hr Titration Protocol Per Protocol Ketorolac Tromethamine 15 mg 06/07/23 18:00 06/08/23 05:59 Ketorolac 15 Mg/Ml 1 Ml Vial IVP 06/12/23 15:55 15 mg Q6HR SUDEEP Administration Magnesium Hydroxide 2,400 mg 06/08/23 09:00 Magnesium Hydroxide 2,400 Mg/30 Ml Cup PO BID PRN Constipation Metoclopramide HCl 10 mg 06/07/23 11:13 Metoclopramide 5 Mg/Ml 2 Ml Vial IVP Q4H PRN Nausea And Vomiting Metoprolol Tartrate 25 mg 06/07/23 21:15 06/07/23 21:13 Metoprolol Tartrate 25 Mg Tab PO 25 mg BID SUDEEP Administration Miscellaneous Information 1 each 06/07/23 11:13 Potassium Replacement Protocol 1 Each Mis MISCELLANE DAILY PRN Per Protocol Protocol Miscellaneous Information 1 each 06/07/23 14:25 Magnesium Replacement Protocol 1 Each [facility] MISCELLANE DAILY PRN Per Protocol Protocol Miscellaneous Information 1 each 06/07/23 14:26 Potassium Replacement Protocol 1 Each [facility] MISCELLANE DAILY PRN Per Protocol Protocol Multivitamins 1 each 06/08/23 09:00 Multivitamins, Thera 1 Each Tab PO DAILY SUDEEP Nicotine 1 patch 06/07/23 15:30 06/07/23 17:29 Nicotine 14mg/24hr Patch TRANSDERM 1 patch DAILY SUDEEP Administration Ondansetron HCl 4 mg 06/07/23 11:13 Ondansetron 4 Mg/2 Ml Vial IVP Q6HR PRN Nausea And Vomiting Pantoprazole Sodium 40 mg 06/08/23 09:00 Pantoprazole 40 Mg/10 Ml Vial IVP 06/08/23 10:00 DAILY SUDEEP Pantoprazole Sodium 40 mg 06/09/23 07:30 Pantoprazole 40 Mg Tablet PO AC-[id number] SUDEEP Senna/Docusate Sodium 2 each 06/07/23 21:00 06/07/23 21:12 Sennosides-Docusate Sodium 1 Each Tab PO 2 each HS SUDEEP Administration Sodium Chloride 10 ml 06/07/23 21:00 06/07/23 21:26 Sodium Chloride 0.9% Flush 10 Ml Syringe IV Not Given BID SUDEEP Intake and Output 06/07/23 06/08/23 06/08/23 22:59 06:59 14:59 Intake Total 1271.566 526.384 199 Output Total 1010 720 40 Balance 261.566 -193.616 159 Intake: IV 1028.0 512 199 ACETAMINOPHEN IV (For NPO 100 ) 1,000 mg In Empty Bag 1 bag @ 400 mls/hr IVPB Q6HR SUDEEP Rx#:[id number] Cardiac Output (0.9 70 40 40 Sodium Chloride) Lactated Ringers 1,000 ml 330 400 50 @ 20 mls/hr IV .Q24H SUDEEP Rx#:[id number] Magnesium Sulfate-D5w Pmx 200 100 1 gm In Dextrose/Water 1 100ml.bag @ 100 mls/hr IVPB Q1H SUDEEP Rx#: [id number] Nitroglycerin-D5w Pmx 50 6.0 mg In Dextrose/Water 1 250ml.bag @ 5 MCG/MIN 1.5 mls/hr IV .Q24H SUDEEP Rx#: [id number] Potassium Chloride 10 meq 200 In Water For Injection 1 100ml.bag @ 100 mls/hr IVPB Q1H SUDEEP Rx#: [id number] Pressure Bag (0.9 Sodium 72 72 9 Chloride) ceFAZolin 2 gm In Sodium 50 Chloride 0.9% 50 ml @ 100 mls/hr IVPB Q8HR SUDEEP Rx# :[id number] Intake, IV Titration 243.566 14.384 Amount Amiodarone 360 mg In 189.932 Dextrose 5% in Water 200 ml @ 1 MG/MIN 34.533 mls/ hr IV .Q6H PRN Rx#: [id number] Clevidipine Butyrate 25 22.799 mg In Empty Bag 1 bag @ 1 MG/HR 2 mls/hr IV .Q24H SUDEEP Rx#:[id number] Dexmedetomidine/0.9% NaCl 7.967 (Pmx) 400 mcg In Empty Bag 1 bag @ Titrate IV . Q0M SUDEEP Rx#:[id number] Insulin Regular 100 unit 22.868 14.384 In Sodium Chloride 0.9% 100 ml @ Per Protocol IV .Q0M SUDEEP Rx#:[id number] Output: Chest Tube Drainage 180 350 10 Left Pleural/Mediastinal 180 350 10 Urine 830 370 30 Other: Voiding Method Indwelling Catheter Indwelling Catheter Weight 91 kg 06/08/23 04:05 06/08/23 04:05
--- NOTE | 2023-06-08 07:35 | P.CONS ---
History of Present Illness - Reason for Consult Consult date: 06/07/23 Medical management - History of Present Illness HISTORY OF PRESENT ILLNESS This is a 68 year old male with past medical history of hypertension, hyperlipidemia, coronary artery disease status post LAD angioplasty followed by stent thrombosis and second angioplasty in 2017, diabetes mellitus type 2, ALLERGIC rhinitis, enlarged prostate, carotid stenosis bilaterally. Patient was recently established in the office in March of this year. He has been followed for a number of issues. He underwent a stress test that revealed global hypokinesia with EF of 27% and fixed defects involving the mid anterior wall and mid inferior wall, ischemic cardiopathy myopathy should be considered. He was then sent to cardiology started on metoprolol and Jardiance but refused to take the Jardiance. He underwent a cardiac catheterization on 05/[address] Doris Vivar which revealed chronic total occlusion of the proximal LAD, normal circumflex coronary artery and nondominant right. At that time, the ischemic cardiomyopathy will be confirmed by echocardiogram and consider AICD. Echocardiogram was performed on 05/02 which revealed EF of 30-35%, trace aortic regurgitation and mild aortic stenosis, trace mitral regurgitation. Patient was referred to cardiothoracic surgery for CABG. Other workup that has been in process low-dose CAT scan which did identify pulmonary nodule and PET scan or biopsy was recommended. The patient was scheduled for PET scan and follow up with Dr. Aguilar. Patient was brought in the hospital by the cardiac thoracic surgery team status post 1 vessel CABG. Patient is in the intensive care unit and in the extubation process at this time. He has done well in the postop period and has been hemodynamically stable. REVIEW OF SYSTEMS Constitutional: No fever, no chills, no night sweats. No weight change. No weakness, fatigue or lethargy. No daytime sleepiness. EENT: No headache. No blurred vision or double vision, no loss of vision. No loss of Hearing, no ringing in the ears, no dizziness. No nasal drainage or congestion. No epistaxis. No sore throat. Lungs: No shortness of breath, cough, no sputum production. No wheezing. Cardiovascular: Reported chest discomfort, no lower extremity edema. No palpitations. No paroxysmal nocturnal dyspnea. No orthopnea. No lightheadedness or dizziness. No syncopal episodes. Abdominal: No abdominal pain. No nausea, vomiting. No diarrhea. No constipation. No bloody or tarry stools. No loss of appetite. Genitourinary: No dysuria, increased frequency, urgency. No urinary retention. Musculoskeletal: No myalgias. No muscle weakness, no gait dysfunction, no frequent falls. No back pain. No neck pain. Integumentary: No wounds, no lesions. No rash or pruritus. No unusual bruising. No change in hair or nails. Neurologic: No aphasia. No facial droop. No change in mentation. No head injury. No headache. No paralysis. No paresthesia. Psychiatric: No depression. No anxiety. No mood swings. Endocrine: No abnormal blood sugars. No weight change. No excessive sweating or thirst. No cold intolerance. MEDICAL HISTORY Coronary artery disease status post LAD angioplasty, stent thrombosis and second angioplasty in 2017 Hypertension Hyperlipidemia Diabetes mellitus type 2 ALLERGIC rhinitis Enlarged prostate Carotid stenosis bilaterally Ischemic cardiomyopathy SURGICAL HISTORY Left heart cath with PCI of the LAD 2 in 2016 Cardiac catheterization 05/2023 1 vessel CABG LAD 2022 Cataract surgery SOCIAL HISTORY Patient is a smoker of one pack per day since age 16. No alcohol abuse or illicit drug use. FAMILY HISTORY Father at age 59 from diabetes complications and alcohol complications. Mother also at age 58 from diabetes, and alcohol abuse history. Brother at age 66 from a CVA with also alcohol abuse history. Patient has 3 sisters and one has diabetes. Patient has 2 sons and 1 daughter with no major medical problems. PHYSICAL EXAMINATION Gen: This is a 68-year-old male. He is resting in bed appears to be comfortable and in no acute distress. Patient is currently intubated and on mechanical ventilation HEENT: Head is atraumatic, normocephalic. Pupils equal, round. Sclerae is a nicteric. NECK: Supple. No JVD. No lymphadenopathy. No thyromegaly. LUNGS: Clear to auscultation. No wheezes or rhonchi. No intercostal retractions. HEART: First heart sound is depressed, second heart sound is normal, 2/6 systolic ejection murmur at left sternal border. ABDOMEN: Soft. Bowel sounds are present. No masses. No tenderness. EXTREMITIES: No pedal edema. No calf tenderness. NEUROLOGICAL: Patient is awake, alert and able to follow commands. Cranial nerves 2 through 12 are grossly intact. ASSESSMENT AND PLAN 1. Coronary artery disease status post 1 vessel CABG FARIA to LAD. Continue current management per cardiothoracic surgery. Patient is in process of being extubated this evening. Continue patient on aspirin, atorvastatin, Plavix, Lopressor. Continue [place] as needed for pain. Continue patient on DuoNeb treatments 4 times daily. 2. Diabetes mellitus type 2. Patient is currently on insulin drip. 3. Hypertension. Losartan is currently on hold, monitor blood pressure. 4. Hyperlipidemia. Continue atorvastatin 20 mg daily. 5. Enlarged prostate. Monitor for urinary retention. 6. Carotid stenosis bilaterally, stable. 7. Ischemic cardiomyopathy. Continue patient on Lopressor 25 mg twice daily. 8. Tobacco use and dependence. Patient is on a nicotine patch. Smoking cessation. 9. Pulmonary nodule. Patient will have PET scan and follow-up with Dr. Aguilar. 10. DVT prophylaxis. Heparin- 5000 units subcu every 8 hours. 11. GI prophylaxis. Protonix 40 mg daily. Impression and plan of care have been directed as dictated by the signing physician. Rosario Shankar nurse practitioner acting as scribe for signing physician. Past Medical History Past Medical History: Diabetes Mellitus, Hyperlipidemia, Hypertension, Myocardial Infarction (AR) Additional Past Medical History / Comment(s): seasonal allergies Last Myocardial Infarction Date:: 01/20/2017 History of Any Multi-Drug Resistant Organisms: None Reported Past Surgical History: Heart Catheterization With Stent Additional Past Surgical History / Comment(s): right HAND tendon transplant in 1977, Past Anesthesia/Blood Transfusion Reactions: Previous Problems w/ Anesthesia Additional Past Anesthesia/Blood Transfusion Reaction / Comm: Pt wakes up angry Date of Last Stent Placement:: 01/20/2017 Smoking Status: Current every day smoker - Past Family History Mother Family Medical History: Diabetes Mellitus Father Family Medical History: Diabetes Mellitus Medications and Allergies Home Medications Medication Instructions Recorded Confirmed Type Aspirin 81 mg PO DAILY #30 01/20/17 06/07/23 Rx Atorvastatin [Lipitor] 20 mg PO HS 05/04/23 06/07/23 History Losartan [Cozaar] 25 mg PO DAILY 05/04/23 06/07/23 History Metoprolol Succinate (ER) [Toprol 25 mg PO DAILY 05/04/23 06/07/23 History XL] Nitroglycerin Sl Tabs [Nitrostat] 0.4 mg SUBLINGUAL Q5M PRN 05/04/23 06/07/23 History Vision Shield 1 cap PO DAILY 05/04/23 06/07/23 History metFORMIN HCL [Glucophage] 500 mg PO BID 05/04/23 06/07/23 History Albuterol Inhaler [Ventolin Hfa 1 - 2 puff INHALATION Q6H PRN 06/01/23 06/01/23 History Inhaler] Multivitamins, Thera [Multivitamin 1 tab PO DAILY 06/01/23 06/07/23 History (formulary)] Allergies Allergy/AdvReac Type Severity Reaction Status Date / Time No Known Allergies Allergy Verified 06/07/23 05:53 Physical Exam Vitals: Vital Signs Temp Pulse Pulse Resp BP BP BP 06/07/23 15:00 59 L 24 113/62 06/07/23 14:45 66 24 102/59 06/07/23 14:30 65 24 99/55 06/07/23 14:15 64 24 119/65 06/07/23 14:00 83 24 113/63 06/07/23 13:45 84 24 124/67 06/07/23 13:30 90 24 124/67 06/07/23 13:15 93 24 120/66 06/07/23 13:00 96 22 123/65 06/07/23 12:45 96 22 129/66 06/07/23 12:30 99 21 129/67 06/07/23 12:19 96 13 06/07/23 12:15 96 16 142/77 06/07/23 12:11 96 13 06/07/23 12:06 06/07/23 12:02 06/07/23 12:00 93 12 06/07/23 11:45 90 12 06/07/23 11:30 97.5 F L 90 12 06/07/23 11:29 23 06/07/23 11:25 06/07/23 05:55 96.8 F L 86 18 136/76 137/73 Pulse Ox FiO2 06/07/23 15:00 94 L 40 06/07/23 14:45 94 L 06/07/23 14:30 93 L 06/07/23 14:15 91 L 06/07/23 14:00 92 L 40 06/07/23 13:45 91 L 06/07/23 13:30 91 L 06/07/23 13:15 92 L 06/07/23 13:00 92 L 06/07/23 12:45 92 L 06/07/23 12:30 92 L 06/07/23 12:19 06/07/23 12:15 96 40 06/07/23 12:11 06/07/23 12:06 40 06/07/23 12:02 100 06/07/23 12:00 97 100 06/07/23 11:45 98 06/07/23 11:30 98 100 06/07/23 11:29 06/07/23 11:25 100 06/07/23 05:55 96 Intake and Output 06/07/23 06/07/23 06/07/23 06:59 14:59 22:59 Intake Total 100 411.391 60.5 Output Total 895 80 Balance 100 -483.609 -19.5 Intake: IV 100 274.5 60.5 Cardiac Output (0.9 40 Sodium Chloride) Lactated Ringers 1,000 ml 150 50 @ 50 mls/hr IV .Q20H SUDEEP Rx#:[id number] Nitroglycerin-D5w Pmx 50 4.5 1.5 mg In Dextrose/Water 1 250ml.bag @ 5 MCG/MIN 1.5 mls/hr IV .Q24H SUDEEP Rx#: [id number] Pressure Bag (0.9 Sodium 27 9 Chloride) Intake, IV Titration 136.891 Amount Clevidipine Butyrate 25 46.367 mg In Empty Bag 1 bag @ 1 MG/HR 2 mls/hr IV .Q24H SUDEEP Rx#:[id number] Dexmedetomidine/0.9% NaCl 30.018 (Pmx) 400 mcg In Empty Bag 1 bag @ Titrate IV . Q0M SUDEEP Rx#:[id number] Insulin Regular 100 unit 8.366 In Sodium Chloride 0.9% 100 ml @ Per Protocol IV .Q0M SUDEEP Rx#:[id number] propofoL 1,000 mg In 52.140 Empty Bag 1 bag @ Titrate IV .Q0M SUDEEP Rx#: [id number] Output: Chest Tube Drainage 170 20 Left Pleural/Mediastinal 170 20 Urine 600 60 Estimated Blood Loss 125 Other: Voiding Method Indwelling Catheter Weight 86.9 kg ABP, PAP, CO, CI - Last 8 Hours Arterial Blood Pressure 116/48 Arterial Blood Pressure 121/49 Arterial Blood Pressure 99/45 Arterial Blood Pressure 99/41 Arterial Blood Pressure 122/52 Arterial Blood Pressure 116/48 Arterial Blood Pressure 123/50 Arterial Blood Pressure 115/46 Arterial Blood Pressure 117/52 Arterial Blood Pressure 119/53 Arterial Blood Pressure 128/58 Arterial Blood Pressure 140/55 Arterial Blood Pressure 139/56 Pulmonary Artery Pressure 22/13 Pulmonary Artery Pressure 21/13 Pulmonary Artery Pressure 21/12 Pulmonary Artery Pressure 21/12 Pulmonary Artery Pressure 28/16 Pulmonary Artery Pressure 24/15 Pulmonary Artery Pressure 29/17 Pulmonary Artery Pressure 26/13 Pulmonary Artery Pressure 29/16 Pulmonary Artery Pressure 30/16 Pulmonary Artery Pressure 40/25 Pulmonary Artery Pressure 42/30 Pulmonary Artery Pressure 47/27 Pulmonary Artery Pressure 43/25 Cardiac Output 7.8 Cardiac Output 7.8 Cardiac Output 7.8 Cardiac Output 7.8 Cardiac Output 7.8 Cardiac Output 8.1 Cardiac Output 8.1 Cardiac Index 3.8 Cardiac Index 3.8 Cardiac Index 3.8 Cardiac Index 3.8 Cardiac Index 3.8 Cardiac Index 4 Cardiac Index 4 Results CBC & Chem 7: 06/08/23 04:05 06/08/23 04:05 Labs: Abnormal Lab Results - Last 24 Hours (Table) 06/01/23 06/07/23 06/07/23 Range/Units 11:31 06:11 07:30 Neutrophils # (1.3-7.7) k/uL Lymphocytes # (1.0-4.8) k/uL ABG pH (7.35-7.45) ABG pCO2 (35-45) mmHg ABG pO2 125 H (83-108) mmHg ABG HCO3 27 H (21-25) mmol/L ABG Total CO2 28 H (19-24) mmol/L ABG O2 Saturation 98.4 H (94-97) % ABG Hematocrit 49 H (34.0-46.0) % ABG Glucose 148 H (75-99) mg/dL Creatinine (0.66-1.25) mg/dL Glucose (74-99) mg/dL POC Glucose (mg/dL) 153 H (70-110) mg/dL Calcium (8.4-10.2) mg/dL Total Protein (6.3-8.2) g/dL Albumin (3.5-5.0) g/dL Arterial Blood Glucose 148 H (75-99) mg/dL Crossmatch See Detail 06/07/23 06/07/23 06/07/23 Range/Units 07:30 07:30 07:30 Neutrophils # (1.3-7.7) k/uL Lymphocytes # (1.0-4.8) k/uL ABG pH 7.31 L 7.33 L 7.31 L (7.35-7.45) ABG pCO2 54 H 52 H 54 H (35-45) mmHg ABG pO2 69 L >420 H (83-108) mmHg ABG HCO3 27 H 27 H 27 H (21-25) mmol/L ABG Total CO2 29 H 29 H 28 H (19-24) mmol/L ABG O2 Saturation 99.2 H (94-97) % ABG Hematocrit (34.0-46.0) % ABG Glucose 139 H 157 H 124 H (75-99) mg/dL Creatinine (0.66-1.25) mg/dL Glucose (74-99) mg/dL POC Glucose (mg/dL) (70-110) mg/dL Calcium (8.4-10.2) mg/dL Total Protein (6.3-8.2) g/dL Albumin (3.5-5.0) g/dL Arterial Blood Glucose 139 H 157 H 124 H (75-99) mg/dL Crossmatch 06/07/23 06/07/23 06/07/23 Range/Units 11:13 11:35 11:36 Neutrophils # 7.8 H (1.3-7.7) k/uL Lymphocytes # (1.0-4.8) k/uL ABG pH (7.35-7.45) ABG pCO2 (35-45) mmHg ABG pO2 (83-108) mmHg ABG HCO3 (21-25) mmol/L ABG Total CO2 (19-24) mmol/L ABG O2 Saturation (94-97) % ABG Hematocrit (34.0-46.0) % ABG Glucose (75-99) mg/dL Creatinine 0.58 L (0.66-1.25) mg/dL Glucose 117 H (74-99) mg/dL POC Glucose (mg/dL) 123 H (70-110) mg/dL Calcium 8.1 L (8.4-10.2) mg/dL Total Protein 5.6 L (6.3-8.2) g/dL Albumin 3.4 L (3.5-5.0) g/dL Arterial Blood Glucose (75-99) mg/dL Crossmatch 06/07/23 06/07/23 06/07/23 Range/Units 12:00 12:21 13:17 Neutrophils # (1.3-7.7) k/uL Lymphocytes # (1.0-4.8) k/uL ABG pH 7.27 L (7.35-7.45) ABG pCO2 62 H (35-45) mmHg ABG pO2 >400 H (83-108) mmHg ABG HCO3 29 H (21-25) mmol/L ABG Total CO2 30 H (19-24) mmol/L ABG O2 Saturation 99.3 H (94-97) % ABG Hematocrit (34.0-46.0) % ABG Glucose (75-99) mg/dL Creatinine (0.66-1.25) mg/dL Glucose (74-99) mg/dL POC Glucose (mg/dL) 170 H 174 H (70-110) mg/dL Calcium (8.4-10.2) mg/dL Total Protein (6.3-8.2) g/dL Albumin (3.5-5.0) g/dL Arterial Blood Glucose (75-99) mg/dL Crossmatch 06/07/23 06/07/23 06/07/23 Range/Units 13:54 14:03 14:49 Neutrophils # 8.4 H (1.3-7.7) k/uL Lymphocytes # 0.9 L (1.0-4.8) k/uL ABG pH (7.35-7.45) ABG pCO2 (35-45) mmHg ABG pO2 (83-108) mmHg ABG HCO3 (21-25) mmol/L ABG Total CO2 (19-24) mmol/L ABG O2 Saturation (94-97) % ABG Hematocrit (34.0-46.0) % ABG Glucose (75-99) mg/dL Creatinine (0.66-1.25) mg/dL Glucose (74-99) mg/dL POC Glucose (mg/dL) 170 H 158 H (70-110) mg/dL Calcium (8.4-10.2) mg/dL Total Protein (6.3-8.2) g/dL Albumin (3.5-5.0) g/dL Arterial Blood Glucose (75-99) mg/dL Crossmatch
--- NOTE | 2023-06-08 08:14 | XR ---
EXAMINATION TYPE: XR chest 1V portable DATE OF EXAM: 06/08/2023 HISTORY: Post Op CABG COMPARISON: 06/07/2023 TECHNIQUE: Single view of the chest is submitted. FINDINGS: SG catheter, mediastinal drains and chest tube are appropriately placed.Removal of endotracheal tube and NG tube. Post operative changes of CABG. No sizeable pneumothorax. Scattered Pleural-parenchymal opacities may reflect atelectasis. The heart mildly enlarged. Pulmonary venous congestion. IMPRESSION: 1. Post operative changes of CABG.
[2023-06-08] MEDS: IPRATROPIUM-ALBUTEROL 3 ML NEB INHALATION SCH ×4 (08:18→19:34)
[2023-06-08 08:22] LABS: Glucose,Whole Blood 196 mg/dL (70-110)
[2023-06-08] MEDS: HEPARIN SODIUM,PORCINE 5,000 UNIT/ML 1 ML VIAL SQ SCH ×2 (08:43→16:15)
[2023-06-08] MEDS: ASPIRIN 325 MG TAB PO SCH (08:44)
[2023-06-08] MEDS: METOPROLOL TARTRATE 25 MG TAB PO SCH ×2 (08:45→21:01)
[2023-06-08] MEDS: NICOTINE 14MG/24HR PATCH TRANSDERM SCH (08:45)
[2023-06-08] MEDS: MULTIVITAMINS, THERA 1 EACH TAB PO SCH (08:45)
[2023-06-08] MEDS: CLOPIDOGREL 75 MG TAB PO SCH (08:45)
[2023-06-08] MEDS ORDERED: METOPROLOL TARTRATE 12.5 MG TAB PO SCH (09:00)
[2023-06-08] MEDS ORDERED: MAGNESIUM HYDROXIDE 2,400 MG/30 ML CUP PO PRN (09:00)
[2023-06-08] MEDS ORDERED: PANTOPRAZOLE 40 MG/10 ML VIAL IVP SCH (09:00)
[2023-06-08] MEDS ORDERED: bisacodyL 10 MG SUPP RECTAL PRN (09:00)
[2023-06-08 09:09] LABS: Glucose,Whole Blood 184 mg/dL (70-110)
--- NOTE | 2023-06-08 09:51 | P.PN ---
Subjective Progress Note Date: 06/08/23 This is a 68-year-old male patient with previous stenting of the LAD, quadrant underwent a recent cardiac catheterization the patient was found to have total occlusion of the LAD at the stent with distal reconstitution of the vessel via collaterals. Patient also had an echocardiogram that showed impaired LV function. Based on that, the patient was brought in today and he underwent an elective off-pump coronary artery bypass surgery 1 with FARIA to LAD. Estimated blood loss less than 50 mL PT I saw the patient immediately after he arrived to the intensive care unit. The patient was quite restless and he was placed on a combination of Precedex which was running at 1.4 mg/kg/h and propofol running at 30 mg/kg/m. The patient was on a mechanical ventilator. The patient was on assist-control mode at a rate of 12, tidal volume of 500, FiO2 of 100% and a PEEP of 5. The blood gas showed a pH of 7.27 with a pCO2 of 62 and pO2 of more than 400. Chest x-ray showed adequate expansion of both lungs. The patient and mediastinal and left lower chest tube. Output from the chest tubes are bloody and minimal at this point in time and those out of 150 mL and there is no evidence of air leak. The patient was hemodynamically stable. Cardiac output was 8 with an index of 4.0. The pulmonary artery pressures were 20/16. The patient is currently on nitroglycerin drip at 5 mcg/m and insulin drip at 2.5 units an hour. The patient is also on cleviprex drip running at 10 mg an hour.. The patient is doing otherwise well. Adequate urine output. No cardiac arrhythmias noted. This evaluation of 06/08/2023, the patient is extubated and patient is currently on room air oxygen. Doing well. Hemodynamically stable. [place] catheter removed. Chest x-ray shows adequate expansion of both lungs, no evidence of any pneumothorax. The pleural and mediastinal chest tubes are still in place, total amount of output has been in the order of 700 mL and both tubes are connected. The patient's hemoglobin today is at 15, sodium is at 132, BUN is at 10 with a creatinine of 0.4. Cardiac rhythm is sinus. Remains on insulin drip at 5 units an hour. No other significant events overnight. Awake and alert. Using incentive spirometer, falling approximately 1000 Objective - Vital Signs Vital signs: Vital Signs Temp 97.5 F L 06/07/23 11:30 Pulse 87 06/08/23 08:28 Resp 20 06/08/23 07:00 BP 119/76 06/08/23 07:00 Pulse Ox 93 L 06/08/23 07:00 FiO2 94 06/08/23 08:22 Intake & Output 06/07/23 06/08/23 06/08/23 18:59 06:59 18:59 Intake Total 1314.114 895.227 203.797 Output Total 1375 1250 40 Balance -60.886 -354.773 163.797 Weight 91 kg Intake: IV 966.5 848 199 ACETAMINOPHEN IV (For NPO 100 ) 1,000 mg In Empty Bag 1 bag @ 400 mls/hr IVPB Q6HR SUDEEP Rx#:[id number] Cardiac Output (0.9 60 90 40 Sodium Chloride) Lactated Ringers 1,000 ml 330 550 50 @ 20 mls/hr IV .Q24H SUDEEP Rx#:[id number] Magnesium Sulfate-D5w Pmx 200 100 1 gm In Dextrose/Water 1 100ml.bag @ 100 mls/hr IVPB Q1H SUDEEP Rx#: [id number] Nitroglycerin-D5w Pmx 50 10.5 mg In Dextrose/Water 1 250ml.bag @ 5 MCG/MIN 1.5 mls/hr IV .Q24H SUDEEP Rx#: [id number] Potassium Chloride 10 meq 200 In Water For Injection 1 100ml.bag @ 100 mls/hr IVPB Q1H SUDEEP Rx#: [id number] Pressure Bag (0.9 Sodium 63 108 9 Chloride) ceFAZolin 2 gm In Sodium 50 Chloride 0.9% 50 ml @ 100 mls/hr IVPB Q8HR SUDEEP Rx# :[id number] Intake, IV Titration 347.614 47.227 4.797 Amount Amiodarone 360 mg In 189.932 Dextrose 5% in Water 200 ml @ 1 MG/MIN 34.533 mls/ hr IV .Q6H PRN Rx#: [id number] Clevidipine Butyrate 25 49.234 19.932 mg In Empty Bag 1 bag @ 1 MG/HR 2 mls/hr IV .Q24H SUDEEP Rx#:[id number] Dexmedetomidine/0.9% NaCl 37.985 (Pmx) 400 mcg In Empty Bag 1 bag @ Titrate IV . Q0M SUDEEP Rx#:[id number] Insulin Regular 100 unit 18.323 27.295 4.797 In Sodium Chloride 0.9% 100 ml @ Per Protocol IV .Q0M SUDEEP Rx#:[id number] propofoL 1,000 mg In 52.140 Empty Bag 1 bag @ Titrate IV .Q0M SUDEEP Rx#: [id number] Output: Chest Tube Drainage 260 440 10 Left Pleural/Mediastinal 260 440 10 Urine 990 810 30 Estimated Blood Loss 125 Other: Voiding Method Indwelling Catheter Indwelling Catheter ABP, PAP, CO, CI - Last Documented Arterial Blood Pressure 105/39 Pulmonary Artery Pressure 15/0 Cardiac Output 4.5 Cardiac Index 2.2 - Exam Gen. appearance, the patient is calm and comfortable on RA Head exam was generally normal. There was no scleral icterus or corneal arcus. Mucous membranes were moist. Neck was supple and without jugular venous distension, thyromegaly, or carotid bruits. Carotids were easily palpable bilaterally. There was no adenopathy. Lungs sounds are diminished bilaterally. The patient is a mediastinal and pleu ral chest tube, no evidence of any air leak. Cardiac exam revealed the PMI to be normally situated and sized. The rhythm was regular and no extrasystoles were noted during several minutes of auscultation. The first and second heart sounds were normal and physiologic splitting of the second heart sound was noted. There were no murmurs, rubs, clicks, or gallops. The sternotomy site is dry clean and intact. Abdominal exam revealed normal bowel sounds. The abdomen was soft, non-tender, and without masses, organomegaly, or appreciable enlargement of the abdominal aorta. Examination of the extremities revealed easily palpable radial, femoral and pedal pulses. There was no cyanosis, clubbing or edema. Examination of the skin revealed no evidence of significant rashes, suspicious appearing nevi or other concerning lesions. Neurologically, the patient has OAx3 - Labs CBC & Chem 7: 06/08/23 04:05 06/08/23 04:05 Labs: Abnormal Lab Results - Last 24 Hours (Table) 06/01/23 06/07/23 06/07/23 Range/Units 11:31 07:30 07:30 WBC (3.8-10.6) k/uL Plt Count (150-450) k/uL Neutrophils # (1.3-7.7) k/uL Lymphocytes # (1.0-4.8) k/uL ABG pH 7.31 L (7.35-7.45) ABG pCO2 54 H (35-45) mmHg ABG pO2 125 H (83-108) mmHg ABG HCO3 27 H 27 H (21-25) mmol/L ABG Total CO2 28 H 29 H (19-24) mmol/L ABG O2 Saturation 98.4 H (94-97) % ABG Hematocrit 49 H (34.0-46.0) % ABG Glucose 148 H 139 H (75-99) mg/dL Sodium (137-145) mmol/L Creatinine (0.66-1.25) mg/dL Glucose (74-99) mg/dL POC Glucose (mg/dL) (70-110) mg/dL Calcium (8.4-10.2) mg/dL Total Protein (6.3-8.2) g/dL Albumin (3.5-5.0) g/dL Arterial Blood Glucose 148 H 139 H (75-99) mg/dL Crossmatch See Detail 06/07/23 06/07/23 06/07/23 Range/Units 07:30 07:30 11:13 WBC (3.8-10.6) k/uL Plt Count (150-450) k/uL Neutrophils # 7.8 H (1.3-7.7) k/uL Lymphocytes # (1.0-4.8) k/uL ABG pH 7.33 L 7.31 L (7.35-7.45) ABG pCO2 52 H 54 H (35-45) mmHg ABG pO2 69 L >420 H (83-108) mmHg ABG HCO3 27 H 27 H (21-25) mmol/L ABG Total CO2 29 H 28 H (19-24) mmol/L ABG O2 Saturation 99.2 H (94-97) % ABG Hematocrit (34.0-46.0) % ABG Glucose 157 H 124 H (75-99) mg/dL Sodium (137-145) mmol/L Creatinine (0.66-1.25) mg/dL Glucose (74-99) mg/dL POC Glucose (mg/dL) (70-110) mg/dL Calcium (8.4-10.2) mg/dL Total Protein (6.3-8.2) g/dL Albumin (3.5-5.0) g/dL Arterial Blood Glucose 157 H 124 H (75-99) mg/dL Crossmatch 06/07/23 06/07/23 06/07/23 Range/Units 11:35 11:36 12:00 WBC (3.8-10.6) k/uL Plt Count (150-450) k/uL Neutrophils # (1.3-7.7) k/uL Lymphocytes # (1.0-4.8) k/uL ABG pH 7.27 L (7.35-7.45) ABG pCO2 62 H (35-45) mmHg ABG pO2 >400 H (83-108) mmHg ABG HCO3 29 H (21-25) mmol/L ABG Total CO2 30 H (19-24) mmol/L ABG O2 Saturation 99.3 H (94-97) % ABG Hematocrit (34.0-46.0) % ABG Glucose (75-99) mg/dL Sodium (137-145) mmol/L Creatinine 0.58 L (0.66-1.25) mg/dL Glucose 117 H (74-99) mg/dL POC Glucose (mg/dL) 123 H (70-110) mg/dL Calcium 8.1 L (8.4-10.2) mg/dL Total Protein 5.6 L (6.3-8.2) g/dL Albumin 3.4 L (3.5-5.0) g/dL Arterial Blood Glucose (75-99) mg/dL Crossmatch 06/07/23 06/07/23 06/07/23 Range/Units 12:21 13:17 13:54 WBC (3.8-10.6) k/uL Plt Count (150-450) k/uL Neutrophils # 8.4 H (1.3-7.7) k/uL Lymphocytes # 0.9 L (1.0-4.8) k/uL ABG pH (7.35-7.45) ABG pCO2 (35-45) mmHg ABG pO2 (83-108) mmHg ABG HCO3 (21-25) mmol/L ABG Total CO2 (19-24) mmol/L ABG O2 Saturation (94-97) % ABG Hematocrit (34.0-46.0) % ABG Glucose (75-99) mg/dL Sodium (137-145) mmol/L Creatinine (0.66-1.25) mg/dL Glucose (74-99) mg/dL POC Glucose (mg/dL) 170 H 174 H (70-110) mg/dL Calcium (8.4-10.2) mg/dL Total Protein (6.3-8.2) g/dL Albumin (3.5-5.0) g/dL Arterial Blood Glucose (75-99) mg/dL Crossmatch 06/07/23 06/07/23 06/07/23 Range/Units 14:03 14:49 15:40 WBC (3.8-10.6) k/uL Plt Count (150-450) k/uL Neutrophils # (1.3-7.7) k/uL Lymphocytes # (1.0-4.8) k/uL ABG pH (7.35-7.45) ABG pCO2 (35-45) mmHg ABG pO2 (83-108) mmHg ABG HCO3 26 H (21-25) mmol/L ABG Total CO2 27 H (19-24) mmol/L ABG O2 Saturation (94-97) % ABG Hematocrit (34.0-46.0) % ABG Glucose (75-99) mg/dL Sodium (137-145) mmol/L Creatinine (0.66-1.25) mg/dL Glucose (74-99) mg/dL POC Glucose (mg/dL) 170 H 158 H (70-110) mg/dL Calcium (8.4-10.2) mg/dL Total Protein (6.3-8.2) g/dL Albumin (3.5-5.0) g/dL Arterial Blood Glucose (75-99) mg/dL Crossmatch 06/07/23 06/07/23 06/07/23 Range/Units 16:15 17:12 18:10 WBC 10.7 H (3.8-10.6) k/uL Plt Count 146 L (150-450) k/uL Neutrophils # 9.6 H (1.3-7.7) k/uL Lymphocytes # 0.6 L (1.0-4.8) k/uL ABG pH (7.35-7.45) ABG pCO2 (35-45) mmHg ABG pO2 (83-108) mmHg ABG HCO3 (21-25) mmol/L ABG Total CO2 (19-24) mmol/L ABG O2 Saturation (94-97) % ABG Hematocrit (34.0-46.0) % ABG Glucose (75-99) mg/dL Sodium (137-145) mmol/L Creatinine (0.66-1.25) mg/dL Glucose (74-99) mg/dL POC Glucose (mg/dL) 131 H 113 H (70-110) mg/dL Calcium (8.4-10.2) mg/dL Total Protein (6.3-8.2) g/dL Albumin (3.5-5.0) g/dL Arterial Blood Glucose (75-99) mg/dL Crossmatch 06/07/23 06/07/23 06/07/23 Range/Units 18:15 18:56 19:59 WBC (3.8-10.6) k/uL Plt Count (150-450) k/uL Neutrophils # (1.3-7.7) k/uL Lymphocytes # (1.0-4.8) k/uL ABG pH (7.35-7.45) ABG pCO2 (35-45) mmHg ABG pO2 (83-108) mmHg ABG HCO3 (21-25) mmol/L ABG Total CO2 (19-24) mmol/L ABG O2 Saturation (94-97) % ABG Hematocrit (34.0-46.0) % ABG Glucose (75-99) mg/dL Sodium (137-145) mmol/L Creatinine (0.66-1.25) mg/dL Glucose (74-99) mg/dL POC Glucose (mg/dL) 152 H 160 H 154 H (70-110) mg/dL Calcium (8.4-10.2) mg/dL Total Protein (6.3-8.2) g/dL Albumin (3.5-5.0) g/dL Arterial Blood Glucose (75-99) mg/dL Crossmatch 06/07/23 06/07/23 06/08/23 Range/Units 21:18 23:01 00:08 WBC (3.8-10.6) k/uL Plt Count (150-450) k/uL Neutrophils # (1.3-7.7) k/uL Lymphocytes # (1.0-4.8) k/uL ABG pH (7.35-7.45) ABG pCO2 (35-45) mmHg ABG pO2 (83-108) mmHg ABG HCO3 (21-25) mmol/L ABG Total CO2 (19-24) mmol/L ABG O2 Saturation (94-97) % ABG Hematocrit (34.0-46.0) % ABG Glucose (75-99) mg/dL Sodium (137-145) mmol/L Creatinine (0.66-1.25) mg/dL Glucose (74-99) mg/dL POC Glucose (mg/dL) 120 H 135 H 130 H (70-110) mg/dL Calcium (8.4-10.2) mg/dL Total Protein (6.3-8.2) g/dL Albumin (3.5-5.0) g/dL Arterial Blood Glucose (75-99) mg/dL Crossmatch 06/08/23 06/08/23 06/08/23 Range/Units 02:01 02:58 04:02 WBC (3.8-10.6) k/uL Plt Count (150-450) k/uL Neutrophils # (1.3-7.7) k/uL Lymphocytes # (1.0-4.8) k/uL ABG pH (7.35-7.45) ABG pCO2 (35-45) mmHg ABG pO2 (83-108) mmHg ABG HCO3 (21-25) mmol/L ABG Total CO2 (19-24) mmol/L ABG O2 Saturation (94-97) % ABG Hematocrit (34.0-46.0) % ABG Glucose (75-99) mg/dL Sodium (137-145) mmol/L Creatinine (0.66-1.25) mg/dL Glucose (74-99) mg/dL POC Glucose (mg/dL) 123 H 129 H 114 H (70-110) mg/dL Calcium (8.4-10.2) mg/dL Total Protein (6.3-8.2) g/dL Albumin (3.5-5.0) g/dL Arterial Blood Glucose (75-99) mg/dL Crossmatch 06/08/23 06/08/23 06/08/23 Range/Units 04:05 04:05 05:00 WBC (3.8-10.6) k/uL Plt Count (150-450) k/uL Neutrophils # (1.3-7.7) k/uL Lymphocytes # 0.8 L (1.0-4.8) k/uL ABG pH (7.35-7.45) ABG pCO2 (35-45) mmHg ABG pO2 (83-108) mmHg ABG HCO3 (21-25) mmol/L ABG Total CO2 (19-24) mmol/L ABG O2 Saturation (94-97) % ABG Hematocrit (34.0-46.0) % ABG Glucose (75-99) mg/dL Sodium 132 L (137-145) mmol/L Creatinine 0.49 L (0.66-1.25) mg/dL Glucose 104 H (74-99) mg/dL POC Glucose (mg/dL) 139 H (70-110) mg/dL Calcium (8.4-10.2) mg/dL Total Protein 5.5 L (6.3-8.2) g/dL Albumin 3.3 L (3.5-5.0) g/dL Arterial Blood Glucose (75-99) mg/dL Crossmatch 06/08/23 06/08/23 06/08/23 Range/Units 06:10 06:56 08:21 WBC (3.8-10.6) k/uL Plt Count (150-450) k/uL Neutrophils # (1.3-7.7) k/uL Lymphocytes # (1.0-4.8) k/uL ABG pH (7.35-7.45) ABG pCO2 (35-45) mmHg ABG pO2 (83-108) mmHg ABG HCO3 (21-25) mmol/L ABG Total CO2 (19-24) mmol/L ABG O2 Saturation (94-97) % ABG Hematocrit (34.0-46.0) % ABG Glucose (75-99) mg/dL Sodium (137-145) mmol/L Creatinine (0.66-1.25) mg/dL Glucose (74-99) mg/dL POC Glucose (mg/dL) 133 H 146 H 196 H (70-110) mg/dL Calcium (8.4-10.2) mg/dL Total Protein (6.3-8.2) g/dL Albumin (3.5-5.0) g/dL Arterial Blood Glucose (75-99) mg/dL Crossmatch 06/08/23 Range/Units 09:07 WBC (3.8-10.6) k/uL Plt Count (150-450) k/uL Neutrophils # (1.3-7.7) k/uL Lymphocytes # (1.0-4.8) k/uL ABG pH (7.35-7.45) ABG pCO2 (35-45) mmHg ABG pO2 (83-108) mmHg ABG HCO3 (21-25) mmol/L ABG Total CO2 (19-24) mmol/L ABG O2 Saturation (94-97) % ABG Hematocrit (34.0-46.0) % ABG Glucose (75-99) mg/dL Sodium (137-145) mmol/L Creatinine (0.66-1.25) mg/dL Glucose (74-99) mg/dL POC Glucose (mg/dL) 184 H (70-110) mg/dL Calcium (8.4-10.2) mg/dL Total Protein (6.3-8.2) g/dL Albumin (3.5-5.0) g/dL Arterial Blood Glucose (75-99) mg/dL Crossmatch Assessment and Plan Plan: Coronary artery disease with complete occlusion of the LAD with collateral circulation. The patient underwent an off-pump single-vessel bypass surgery with FARIA to LAD. The patient is currently postop day #1. For now, the patient is hemodynamically stable Postthoracotomy, currently intubated on a mechanical ventilator. Chest x-ray was noted. Extubated the patient is currently on room air oxygen. Chest tubes are in place. Output is low and there is no evidence of any air leak Hypertension off clevidipine drip Pulmonary nodule measuring 7 mm in size in the right lower lobe, not at avid Chronic systolic heart failure. Cardiac output and index is adequate at this point in time. Mild to moderate COPD with an FEV1 of 62% of predicted and a diffusion capacity of 44% of predicted Diabetes mellitus2 Hyperlipidemia History of smoking Plan IS Overall hemodynamically stable Continue insulin drip Monitor THE CHEST TUBES outputs, no evidence of any air leak. Continue aspirin and Plavix Continue amiodarone 400 mg by mouth twice a day and the patient's current cardiac rhythm is sinus Continue Lipitor 80 mg by mouth daily Patient has adequate pain control [place] catheter removed We'll continue to follow make further recommendations based on the overall pulmonary progress. The pulmonary nodule will be followed up on outpatient basis by his grain broker, Dr. Bashir
[2023-06-08] MEDS: AMIODARONE 200 MG TAB PO SCH ×2 (09:58→21:01)
[2023-06-08 10:04] LABS: Glucose,Whole Blood 129 mg/dL (70-110)
[2023-06-08 11:11] LABS: Glucose,Whole Blood 69 mg/dL (70-110)
[2023-06-08 11:15] LABS: Glucose,Whole Blood 77 mg/dL (70-110)
[2023-06-08] MEDS: CLEVIDIPINE BUTYRATE 25 MG in EMPTY BAG 1 BAG IV SCH (11:26)
[2023-06-08 11:57] VITALS: BMI 28.8
[2023-06-08 12:08] LABS: Glucose,Whole Blood 146 mg/dL (70-110)
--- NOTE | 2023-06-08 12:44 | P.PN ---
Subjective Progress Note Date: 06/08/23 HISTORY OF PRESENT ILLNESS This is a 68 year old male with past medical history of hypertension, hyperlipi demia, coronary artery disease status post LAD angioplasty followed by stent thrombosis and second angioplasty in 2017, diabetes mellitus type 2, ALLERGIC rhinitis, enlarged prostate, carotid stenosis bilaterally. Patient was recently established in the office in March of this year. He has been followed for a number of issues. He underwent a stress test that revealed global hypokinesia with EF of 27% and fixed defects involving the mid anterior wall and mid inferior wall, ischemic cardiopathy myopathy should be considered. He was then sent to cardiology started on metoprolol and Jardiance but refused to take the Jardiance. He underwent a cardiac catheterization on 05/[address] Doris Vivar which revealed chronic total occlusion of the proximal LAD, normal circumflex coronary artery and nondominant right. At that time, the ischemic cardiomyopathy will be confirmed by echocardiogram and consider AICD. Echocardiogram was performed on 05/02 which revealed EF of 30-35%, trace aortic regurgitation and mild aortic stenosis, trace mitral regurgitation. Patient was referred to cardiothoracic surgery for CABG. Other workup that has been in process low-dose CAT scan which did identify pulmonary nodule and PET scan or biopsy was recommended. The patient was scheduled for PET scan and follow up with Dr. Aguilar. Patient was brought in the hospital by the cardiac thoracic surgery team status post 1 vessel CABG. Patient is in the intensive care unit and in the extubation process at this time. He has done well in the postop period and has been hemodynamically stable. 06/08: Patient remains in the intensive care unit. He has been successfully extubated currently on room air. [place] catheter was removed today. He is currently on insulin drip and CBGs are running 69-196. Telemetry is sinus rhythm. Blood pressure 108/79, heart rate in the 70s and 80s, pulse ox 100% on room air. Hemoglobin today 15. WBC 8.6. Platelet count 155. Sodium 132, potassium 3.6, creatinine 0.49. Repeat chest x-ray reveals postoperative changes. Patient is reaching greater than 500 on incentive spirometry. REVIEW OF SYSTEMS Constitutional: No fever, no chills, no night sweats. No weight change. No weakness, fatigue or lethargy. No daytime sleepiness. EENT: No headache. No blurred vision or double vision, no loss of vision. No loss of Hearing, no ringing in the ears, no dizziness. No nasal drainage or congestion. No epistaxis. No sore throat. Lungs: No shortness of breath, cough, no sputum production. No wheezing. Cardiovascular: Reported chest discomfort, no lower extremity edema. No palpitations. No paroxysmal nocturnal dyspnea. No orthopnea. No lightheadedness or dizziness. No syncopal episodes. Abdominal: No abdominal pain. No nausea, vomiting. No diarrhea. No constipation. No bloody or tarry stools. No loss of appetite. Genitourinary: No dysuria, increased frequency, urgency. No urinary retention. Musculoskeletal: No myalgias. No muscle weakness, no gait dysfunction, no frequent falls. No back pain. No neck pain. Integumentary: No wounds, no lesions. No rash or pruritus. No unusual bruising. No change in hair or nails. Neurologic: No aphasia. No facial droop. No change in mentation. No head injury. No headache. No paralysis. No paresthesia. Psychiatric: No depression. No anxiety. No mood swings. Endocrine: No abnormal blood sugars. No weight change. No excessive sweating or thirst. No cold intolerance. PHYSICAL EXAMINATION Gen: This is a 68-year-old male. He is resting in chair appears to be comfortable and in no acute distress. HEENT: Head is atraumatic, normocephalic. Pupils equal, round. Sclerae is anict anyi. NECK: Supple. No JVD. No lymphadenopathy. No thyromegaly. LUNGS: Diminished breath sounds bilaterally. No intercostal retractions. HEART: First heart sound is depressed, second heart sound is normal, 2/6 systolic ejection murmur at left sternal border. ABDOMEN: Soft. Bowel sounds are present. No masses. No tenderness. EXTREMITIES: No pedal edema. No calf tenderness. NEUROLOGICAL: Patient is awake, alert and able to follow commands. Cranial nerves 2 through 12 are grossly intact. ASSESSMENT AND PLAN 1. Coronary artery disease status post 1 vessel CABG FARIA to LAD, 06/07. Continue current management per cardiothoracic surgery. Continue patient on aspirin, atorvastatin, Plavix, Lopressor. Continue [place] as needed for pain. Continue patient on DuoNeb treatments 4 times daily. 2. Diabetes mellitus type 2. Patient is currently on insulin drip. 3. Hypertension. Losartan is currently on hold, monitor blood pressure. 4. Hyperlipidemia. Continue atorvastatin 80 mg hs. 5. Enlarged prostate. Monitor for urinary retention. 6. Carotid stenosis bilaterally, stable. 7. Ischemic cardiomyopathy. Continue patient on Lopressor 25 mg twice daily. 8. Tobacco use and dependence. Patient is on a nicotine patch. Smoking cessation. 9. Pulmonary nodule. Patient will have PET scan and follow-up with Dr. Aguilar. 10. DVT prophylaxis. Heparin- 5000 units subcu every 8 hours. 11. GI prophylaxis. Protonix 40 mg daily. Impression and plan of care have been directed as dictated by the signing physician. Rosario Shankar nurse practitioner acting as scribe for signing physician. Objective - Vital Signs Vital signs: Vital Signs Temp 97.5 F L 06/07/23 11:30 Pulse 85 06/08/23 11:05 Resp 24 06/08/23 11:00 BP 108/79 06/08/23 11:00 Pulse Ox 100 06/08/23 11:00 FiO2 94 06/08/23 08:22 Intake & Output 06/07/23 06/08/23 06/08/23 18:59 06:59 18:59 Intake Total 1314.114 895.227 632.942 Output Total 1375 1250 1190 Balance -60.886 -354.773 -557.058 Weight 91 kg 91 kg Intake: IV 966.5 848 366 ACETAMINOPHEN IV (For NPO 100 ) 1,000 mg In Empty Bag 1 bag @ 400 mls/hr IVPB Q6HR SUDEEP Rx#:[id number] Cardiac Output (0.9 60 90 70 Sodium Chloride) Lactated Ringers 1,000 ml 330 550 110 @ 20 mls/hr IV .Q24H SUDEEP Rx#:[id number] Magnesium Sulfate-D5w Pmx 200 100 1 gm In Dextrose/Water 1 100ml.bag @ 100 mls/hr IVPB Q1H SUDEEP Rx#: [id number] Nitroglycerin-D5w Pmx 50 10.5 mg In Dextrose/Water 1 250ml.bag @ 5 MCG/MIN 1.5 mls/hr IV .Q24H SUDEEP Rx#: [id number] Potassium Chloride 10 meq 200 In Water For Injection 1 100ml.bag @ 100 mls/hr IVPB Q1H SUDEEP Rx#: [id number] Pressure Bag (0.9 Sodium 63 108 36 Chloride) ceFAZolin 2 gm In Sodium 50 50 Chloride 0.9% 50 ml @ 100 mls/hr IVPB Q8HR SUDEEP Rx# :[id number] Intake, IV Titration 347.614 47.227 16.942 Amount Amiodarone 360 mg In 189.932 Dextrose 5% in Water 200 ml @ 1 MG/MIN 34.533 mls/ hr IV .Q6H PRN Rx#: [id number] Clevidipine Butyrate 25 49.234 19.932 mg In Empty Bag 1 bag @ 1 MG/HR 2 mls/hr IV .Q24H SUDEEP Rx#:[id number] Dexmedetomidine/0.9% NaCl 37.985 (Pmx) 400 mcg In Empty Bag 1 bag @ Titrate IV . Q0M SUDEEP Rx#:[id number] Insulin Regular 100 unit 18.323 27.295 16.942 In Sodium Chloride 0.9% 100 ml @ Per Protocol IV .Q0M SUDEEP Rx#:[id number] propofoL 1,000 mg In 52.140 Empty Bag 1 bag @ Titrate IV .Q0M SUDEEP Rx#: [id number] Oral 250 Output: Chest Tube Drainage 260 440 60 Left Pleural/Mediastinal 260 440 60 Urine 563 713 6518 Estimated Blood Loss 125 Other: Voiding Method Indwelling Catheter Indwelling Catheter Indwelling Catheter ABP, PAP, CO, CI - Last Documented Arterial Blood Pressure 121/52 Pulmonary Artery Pressure 17/0 Cardiac Output 5 Cardiac Index 2.4 - Labs CBC & Chem 7: 06/08/23 04:05 06/08/23 04:05 Labs: Abnormal Lab Results - Last 24 Hours (Table) 06/01/23 06/07/23 06/07/23 Range/Units 11:31 13:17 13:54 WBC (3.8-10.6) k/uL Plt Count (150-450) k/uL Neutrophils # 8.4 H (1.3-7.7) k/uL Lymphocytes # 0.9 L (1.0-4.8) k/uL ABG HCO3 (21-25) mmol/L ABG Total CO2 (19-24) mmol/L Sodium (137-145) mmol/L Creatinine (0.66-1.25) mg/dL Glucose (74-99) mg/dL POC Glucose (mg/dL) 174 H (70-110) mg/dL Total Protein (6.3-8.2) g/dL Albumin (3.5-5.0) g/dL Crossmatch See Detail 06/07/23 06/07/23 06/07/23 Range/Units 14:03 14:49 15:40 WBC (3.8-10.6) k/uL Plt Count (150-450) k/uL Neutrophils # (1.3-7.7) k/uL Lymphocytes # (1.0-4.8) k/uL ABG HCO3 26 H (21-25) mmol/L ABG Total CO2 27 H (19-24) mmol/L Sodium (137-145) mmol/L Creatinine (0.66-1.25) mg/dL Glucose (74-99) mg/dL POC Glucose (mg/dL) 170 H 158 H (70-110) mg/dL Total Protein (6.3-8.2) g/dL Albumin (3.5-5.0) g/dL Crossmatch 06/07/23 06/07/23 06/07/23 Range/Units 16:15 17:12 18:10 WBC 10.7 H (3.8-10.6) k/uL Plt Count 146 L (150-450) k/uL Neutrophils # 9.6 H (1.3-7.7) k/uL Lymphocytes # 0.6 L (1.0-4.8) k/uL ABG HCO3 (21-25) mmol/L ABG Total CO2 (19-24) mmol/L Sodium (137-145) mmol/L Creatinine (0.66-1.25) mg/dL Glucose (74-99) mg/dL POC Glucose (mg/dL) 131 H 113 H (70-110) mg/dL Total Protein (6.3-8.2) g/dL Albumin (3.5-5.0) g/dL Crossmatch 06/07/23 06/07/23 06/07/23 Range/Units 18:15 18:56 19:59 WBC (3.8-10.6) k/uL Plt Count (150-450) k/uL Neutrophils # (1.3-7.7) k/uL Lymphocytes # (1.0-4.8) k/uL ABG HCO3 (21-25) mmol/L ABG Total CO2 (19-24) mmol/L Sodium (137-145) mmol/L Creatinine (0.66-1.25) mg/dL Glucose (74-99) mg/dL POC Glucose (mg/dL) 152 H 160 H 154 H (70-110) mg/dL Total Protein (6.3-8.2) g/dL Albumin (3.5-5.0) g/dL Crossmatch 06/07/23 06/07/23 06/08/23 Range/Units 21:18 23:01 00:08 WBC (3.8-10.6) k/uL Plt Count (150-450) k/uL Neutrophils # (1.3-7.7) k/uL Lymphocytes # (1.0-4.8) k/uL ABG HCO3 (21-25) mmol/L ABG Total CO2 (19-24) mmol/L Sodium (137-145) mmol/L Creatinine (0.66-1.25) mg/dL Glucose (74-99) mg/dL POC Glucose (mg/dL) 120 H 135 H 130 H (70-110) mg/dL Total Protein (6.3-8.2) g/dL Albumin (3.5-5.0) g/dL Crossmatch 06/08/23 06/08/23 06/08/23 Range/Units 02:01 02:58 04:02 WBC (3.8-10.6) k/uL Plt Count (150-450) k/uL Neutrophils # (1.3-7.7) k/uL Lymphocytes # (1.0-4.8) k/uL ABG HCO3 (21-25) mmol/L ABG Total CO2 (19-24) mmol/L Sodium (137-145) mmol/L Creatinine (0.66-1.25) mg/dL Glucose (74-99) mg/dL POC Glucose (mg/dL) 123 H 129 H 114 H (70-110) mg/dL Total Protein (6.3-8.2) g/dL Albumin (3.5-5.0) g/dL Crossmatch 10/01/2406/08/23 06/08/23 Range/Units 04:05 04:05 05:00 WBC (3.8-10.6) k/uL Plt Count (150-450) k/uL Neutrophils # (1.3-7.7) k/uL Lymphocytes # 0.8 L (1.0-4.8) k/uL ABG HCO3 (21-25) mmol/L ABG Total CO2 (19-24) mmol/L Sodium 132 L (137-145) mmol/L Creatinine 0.49 L (0.66-1.25) mg/dL Glucose 104 H (74-99) mg/dL POC Glucose (mg/dL) 139 H (70-110) mg/dL Total Protein 5.5 L (6.3-8.2) g/dL Albumin 3.3 L (3.5-5.0) g/dL Crossmatch 06/08/23 06/08/23 06/08/23 Range/Units 06:10 06:56 08:21 WBC (3.8-10.6) k/uL Plt Count (150-450) k/uL Neutrophils # (1.3-7.7) k/uL Lymphocytes # (1.0-4.8) k/uL ABG HCO3 (21-25) mmol/L ABG Total CO2 (19-24) mmol/L Sodium (137-145) mmol/L Creatinine (0.66-1.25) mg/dL Glucose (74-99) mg/dL POC Glucose (mg/dL) 133 H 146 H 196 H (70-110) mg/dL Total Protein (6.3-8.2) g/dL Albumin (3.5-5.0) g/dL Crossmatch 06/08/23 06/08/23 06/08/23 Range/Units 09:07 10:03 11:09 WBC (3.8-10.6) k/uL Plt Count (150-450) k/uL Neutrophils # (1.3-7.7) k/uL Lymphocytes # (1.0-4.8) k/uL ABG HCO3 (21-25) mmol/L ABG Total CO2 (19-24) mmol/L Sodium (137-145) mmol/L Creatinine (0.66-1.25) mg/dL Glucose (74-99) mg/dL POC Glucose (mg/dL) 184 H 129 H 69 L (70-110) mg/dL Total Protein (6.3-8.2) g/dL Albumin (3.5-5.0) g/dL Crossmatch 06/08/23 Range/Units 12:06 WBC (3.8-10.6) k/uL Plt Count (150-450) k/uL Neutrophils # (1.3-7.7) k/uL Lymphocytes # (1.0-4.8) k/uL ABG HCO3 (21-25) mmol/L ABG Total CO2 (19-24) mmol/L Sodium (137-145) mmol/L Creatinine (0.66-1.25) mg/dL Glucose (74-99) mg/dL POC Glucose (mg/dL) 146 H (70-110) mg/dL Total Protein (6.3-8.2) g/dL Albumin (3.5-5.0) g/dL Crossmatch
[2023-06-08 13:04] LABS: Glucose,Whole Blood 183 mg/dL (70-110)
[2023-06-08 14:07] LABS: Glucose,Whole Blood 159 mg/dL (70-110)
[2023-06-08] MEDS: INSULIN REGULAR 100 UNIT in SODIUM CHLORIDE 0.9% 100 ML IV SCH (14:10)
--- NOTE | 2023-06-08 15:03 | P.PN ---
Subjective Progress Note Date: 06/08/23 Principal diagnosis: Coronary artery disease. Past medical history significant for hypertension, hyperlipidemia, pulmonary nodule measuring 7 mm in size in the right lower lobe, chronic systolic heart failure with an ejection fraction 30-35% preoperatively, mild to moderate COPD with an FEV1 of 62% of predicted value and a diffusion capacity of 44% of predicted value preoperatively, chronic ongoing tobacco dependence, and diabetes mellitus type 2. POD #1 off-pump CABG 1 with left internal mammary artery to left anterior descending coronary artery, ligation of the left atrial appendage with a 35 mm Atricure clip. The patient was seen and examined in follow-up today at his bedside in the intensive care unit. Currently sitting up to the bedside chair, is awake, aler t, oriented to 3 and is in no acute apparent distress. The patient was successfully extubated last evening at 3:44 PM, is currently on 2 L nasal cannula with oxygen saturations 93%. He is achieving 500 mL on his incentive spirometry with much encouragement. Denies any complaints of shortness of breath at this time, although is complaining of some pain to his left chest tube insertion site with taking a deep breath. He does although reports that his pain is well controlled on his current pain medication regimen. Right IJ Cordis and [place] catheter remains in place with current hemodynamic showing a cardiac output of 4.5, cardiac index 2.2, PA pressures 24/6 and a CVP of 3 mmHg. He remained hemodynamically stable and is currently on no inotropic or pressor support. Bedside telemetry showing normal sinus rhythm heart rate 92 BPM. Mediastinal and left pleural chest tubes remain in place to low continuous wall suction -20 cm H2O. No air leak is present. Draining thin serosanguineous drainage with 350 mL output in the last 8 hours and 700 mL output in the last 24 hours. Amiodarone drip is infusing per protocol at 0.5 mg/m. Chest x-ray and laboratory results were reviewed. Objective - Vital Signs Vital signs: Vital Signs Temp 98.4 F 06/08/23 12:00 Pulse 93 06/08/23 14:00 Resp 22 06/08/23 14:00 BP 125/61 06/08/23 14:00 Pulse Ox 88 L 06/08/23 14:00 FiO2 94 06/08/23 08:22 Intake & Output 06/07/23 06/08/2306/08/23 18:59 06:59 18:59 Intake Total 1314.114 895.227 705.292 Output Total 1375 1250 1675 Balance -60.886 -354.773 -969.708 Weight 91 kg 91 kg Intake: IV 966.5 848 429 ACETAMINOPHEN IV (For NPO 100 ) 1,000 mg In Empty Bag 1 bag @ 400 mls/hr IVPB Q6HR [facility] Rx#:[id number] Cardiac Output (0.9 60 90 70 Sodium Chloride) Lactated Ringers 1,000 ml 330 550 155 @ 20 mls/hr IV .Q24H [facility] Rx#:[id number] Magnesium Sulfate-D5w Pmx 200 100 1 gm In Dextrose/Water 1 100ml.bag @ 100 mls/hr IVPB Q1H [facility] Rx#: [id number] Nitroglycerin-D5w Pmx 50 10.5 mg In Dextrose/Water 1 250ml.bag @ 5 MCG/MIN 1.5 mls/hr IV .Q24H [facility] Rx#: [id number] Potassium Chloride 10 meq 200 In Water For Injection 1 100ml.bag @ 100 mls/hr IVPB Q1H [facility] Rx#: [id number] Pressure Bag (0.9 Sodium 63 108 54 Chloride) ceFAZolin 2 gm In Sodium 50 50 Chloride 0.9% 50 ml @ 100 mls/hr IVPB Q8HR [facility] Rx# :[id number] Intake, IV Titration 347.614 47.227 26.292 Amount Amiodarone 360 mg In 189.932 Dextrose 5% in Water 200 ml @ 1 MG/MIN 34.533 mls/ hr IV .Q6H PRN Rx#: [id number] Clevidipine Butyrate 25 49.234 19.932 mg In Empty Bag 1 bag @ 1 MG/HR 2 mls/hr IV .Q24H [facility] Rx#:[id number] Dexmedetomidine/0.9% NaCl 37.985 (Pmx) 400 mcg In Empty Bag 1 bag @ Titrate IV . Q0M [facility] Rx#:[id number] Insulin Regular 100 unit 18.323 27.295 26.292 In Sodium Chloride 0.9% 100 ml @ Per Protocol IV .Q0M [facility] Rx#:[id number] propofoL 1,000 mg In 52.140 Empty Bag 1 bag @ Titrate IV .Q0M [facility] Rx#: [id number] Oral 250 Output: Chest Tube Drainage 260 440 95 Left Pleural/Mediastinal 260 440 95 Urine 485 481 5270 Estimated Blood Loss 125 Other: Voiding Method Indwelling Catheter Indwelling Catheter Indwelling Catheter ABP, PAP, CO, CI - Last Documented Arterial Blood Pressure 123/102 Pulmonary Artery Pressure 17/0 Cardiac Output 5 Cardiac Index 2.4 - Exam CONSTITUTIONAL: Sitting up to the bedside chair in the intensive care unit, appears comfortable, cooperative, no apparent acute distress. HEENT: Neck is supple, no JVD, no lymphadenopathy. Right IJ Cordis and [place]- [place] catheter in place and functioning. RESPIRATORY: Lungs sounds essentially clear throughout, diminished to his bilateral bases with few expiratory wheezes. Respirations are symmetrical and nonlabored. Currently on 2 L nasal cannula with oxygen saturations 93%. Able to achieve 500 mL on their incentive spirometry. Strong cough. CARDIOVASCULAR: Regular rhythm and rate. S1 and S2 present, negative for S3, gallop or murmur. Sternum is stable. Palpable peripheral pulses bilaterally, no edema to his bilateral lower extremities. No calf pain or tenderness noted. Heart hugger in place with patient demonstrating appropriate use. Knee-high WOLF hose and sequential compression devices in place to his bilateral lower extremities. GASTROINTESTINAL: Abdomen soft, nontender, nondistended. Hypoactive bowel sounds present 4 quadrants. Tolerating diet. Passing flatus. No guarding or rigidity. GENITOURINARY: Jensen present draining clear, yellow urine. Urine output 370 mL in the last 8 hours INTEGUMENTARY: Skin is warm and dry with no evidence of clubbing or cyanosis. Midline sternal incision clean dry and well approximated, covered with dry intact dressing. lower extremity EVH sites well approximated without redness or drainage. Left arm radial artery harvest sites clean, dry and approximated. No drainage or redness is present. NEUROLOGIC: Cranial nerves II through XII intact. No focal deficits. MUSKULOSKELETAL: Able to move all extremities, strength equal bilaterally. PSYCHIATRIC: Alert and oriented to person place and time, appropriate affect, intact judgment and insight. INVASIVE LINES AND TUBES: Mediastinal/left pleural chest tubes present and connected to low continuous wall suction, no air leaks present. Mediastinal/left pleural chest tubes with 350 mL of thin serosanguineous drainage overnight, 700 mL output in the last 24 hours. Right brachial arterial line in place and right IJ Cordis and [place] catheter in place, with current monitoring showing a cardiac output of 4.5, cardiac index 2.2, PA pressures 24/6 and a CVP of 3 mmHg. - Allied health notes Allied health notes reviewed: nursing - Labs CBC & Chem 7: 06/08/23 04:05 06/08/23 04:05 Labs: Abnormal Lab Results - Last 24 Hours (Table) 06/01/23 06/07/23 06/07/23 Range/Units 11:31 13:54 14:49 WBC (3.8-10.6) k/uL Plt Count (150-450) k/uL Neutrophils # 8.4 H (1.3-7.7) k/uL Lymphocytes # 0.9 L (1.0-4.8) k/uL ABG HCO3 (21-25) mmol/L ABG Total CO2 (19-24) mmol/L Sodium (137-145) mmol/L Creatinine (0.66-1.25) mg/dL Glucose (74-99) mg/dL POC Glucose (mg/dL) 158 H (70-110) mg/dL Total Protein (6.3-8.2) g/dL Albumin (3.5-5.0) g/dL Crossmatch See Detail 06/07/23 06/07/23 06/07/23 Range/Units 15:40 16:15 17:12 WBC (3.8-10.6) k/uL Plt Count (150-450) k/uL Neutrophils # (1.3-7.7) k/uL Lymphocytes # (1.0-4.8) k/uL ABG HCO3 26 H (21-25) mmol/L ABG Total CO2 27 H (19-24) mmol/L Sodium (137-145) mmol/L Creatinine (0.66-1.25) mg/dL Glucose (74-99) mg/dL POC Glucose (mg/dL) 131 H 113 H (70-110) mg/dL Total Protein (6.3-8.2) g/dL Albumin (3.5-5.0) g/dL Crossmatch 06/07/23 06/07/23 06/07/23 Range/Units 18:10 18:15 18:56 WBC 10.7 H (3.8-10.6) k/uL Plt Count 146 L (150-450) k/uL Neutrophils # 9.6 H (1.3-7.7) k/uL Lymphocytes # 0.6 L (1.0-4.8) k/uL ABG HCO3 (21-25) mmol/L ABG Total CO2 (19-24) mmol/L Sodium (137-145) mmol/L Creatinine (0.66-1.25) mg/dL Glucose (74-99) mg/dL POC Glucose (mg/dL) 152 H 160 H (70-110) mg/dL Total Protein (6.3-8.2) g/dL Albumin (3.5-5.0) g/dL Crossmatch 06/07/23 06/07/23 06/07/23 Range/Units 19:59 21:18 23:01 WBC (3.8-10.6) k/uL Plt Count (150-450) k/uL Neutrophils # (1.3-7.7) k/uL Lymphocytes # (1.0-4.8) k/uL ABG HCO3 (21-25) mmol/L ABG Total CO2 (19-24) mmol/L Sodium (137-145) mmol/L Creatinine (0.66-1.25) mg/dL Glucose (74-99) mg/dL POC Glucose (mg/dL) 154 H 120 H 135 H (70-110) mg/dL Total Protein (6.3-8.2) g/dL Albumin (3.5-5.0) g/dL Crossmatch 06/08/23 06/08/23 06/08/23 Range/Units 00:08 02:01 02:58 WBC (3.8-10.6) k/uL Plt Count (150-450) k/uL Neutrophils # (1.3-7.7) k/uL Lymphocytes # (1.0-4.8) k/uL ABG HCO3 (21-25) mmol/L ABG Total CO2 (19-24) mmol/L Sodium (137-145) mmol/L Creatinine (0.66-1.25) mg/dL Glucose (74-99) mg/dL POC Glucose (mg/dL) 130 H 123 H 129 H (70-110) mg/dL Total Protein (6.3-8.2) g/dL Albumin (3.5-5.0) g/dL Crossmatch 06/08/23 06/08/23 06/08/23 Range/Units 04:02 04:05 04:05 WBC (3.8-10.6) k/uL Plt Count (150-450) k/uL Neutrophils # (1.3-7.7) k/uL Lymphocytes # 0.8 L (1.0-4.8) k/uL ABG HCO3 (21-25) mmol/L ABG Total CO2 (19-24) mmol/L Sodium 132 L (137-145) mmol/L Creatinine 0.49 L (0.66-1.25) mg/dL Glucose 104 H (74-99) mg/dL POC Glucose (mg/dL) 114 H (70-110) mg/dL Total Protein 5.5 L (6.3-8.2) g/dL Albumin 3.3 L (3.5-5.0) g/dL Crossmatch 06/08/23 06/08/23 06/08/23 Range/Units 05:00 06:10 06:56 WBC (3.8-10.6) k/uL Plt Count (150-450) k/uL Neutrophils # (1.3-7.7) k/uL Lymphocytes # (1.0-4.8) k/uL ABG HCO3 (21-25) mmol/L ABG Total CO2 (19-24) mmol/L Sodium (137-145) mmol/L Creatinine (0.66-1.25) mg/dL Glucose (74-99) mg/dL POC Glucose (mg/dL) 139 H 133 H 146 H (70-110) mg/dL Total Protein (6.3-8.2) g/dL Albumin (3.5-5.0) g/dL Crossmatch 06/08/23 06/08/23 06/08/23 Range/Units 08:21 09:07 10:03 WBC (3.8-10.6) k/uL Plt Count (150-450) k/uL Neutrophils # (1.3-7.7) k/uL Lymphocytes # (1.0-4.8) k/uL ABG HCO3 (21-25) mmol/L ABG Total CO2 (19-24) mmol/L Sodium (137-145) mmol/L Creatinine (0.66-1.25) mg/dL Glucose (74-99) mg/dL POC Glucose (mg/dL) 196 H 184 H 129 H (70-110) mg/dL Total Protein (6.3-8.2) g/dL Albumin (3.5-5.0) g/dL Crossmatch 06/08/23 06/08/23 06/08/23 Range/Units 11:09 12:06 13:03 WBC (3.8-10.6) k/uL Plt Count (150-450) k/uL Neutrophils # (1.3-7.7) k/uL Lymphocytes # (1.0-4.8) k/uL ABG HCO3 (21-25) mmol/L ABG Total CO2 (19-24) mmol/L Sodium (137-145) mmol/L Creatinine (0.66-1.25) mg/dL Glucose (74-99) mg/dL POC Glucose (mg/dL) 69 L 146 H 183 H (70-110) mg/dL Total Protein (6.3-8.2) g/dL Albumin (3.5-5.0) g/dL Crossmatch 06/08/23 Range/Units 14:05 WBC (3.8-10.6) k/uL Plt Count (150-450) k/uL Neutrophils # (1.3-7.7) k/uL Lymphocytes # (1.0-4.8) k/uL ABG HCO3 (21-25) mmol/L ABG Total CO2 (19-24) mmol/L Sodium (137-145) mmol/L Creatinine (0.66-1.25) mg/dL Glucose (74-99) mg/dL POC Glucose (mg/dL) 159 H (70-110) mg/dL Total Protein (6.3-8.2) g/dL Albumin (3.5-5.0) g/dL Crossmatch - Imaging and Cardiology Chest x-ray: report reviewed, image reviewed Assessment and Plan Assessment: Coronary artery disease, status post coronary artery bypass grafting 1 vessel, FARIA to the left anterior descending coronary artery Hypertension, Hyperlipidemia History of pulmonary nodule measuring 7 mm in size in the right lower lobe Mild to moderate COPD with an FEV1 62% predicted value and a diffusion capacity of 44% of predicted value preoperatively Chronic systolic heart failure with an ejection fraction of 30-35% pre operatively Diabetes mellitus type 2 Chronic ongoing tobacco dependence Plan: Continue to maximize medical management with aspirin, statin, Plavix and beta kamilla. Will increase beta kamilla therapy as tolerated. Lipitor increased to 80 mg by mouth daily. Discontinue IV nitro. Continue amiodarone for A. fib prophylaxis, will transition to oral 400 mg by mouth twice a day, will taper per protocol. Encourage incentive spirometry 10 times every hour while awake. Bronchodilators per pulmonology. Will monitor daily labs and chest x-rays. Electrolyte replacement per protocol Increase activity as tolerated. PT/OT/cardiac rehab consulted. GI/DVT prophylaxis. Pain control with current medication regimen. Toradol added. Insulin management per internal medicine. Patient to remain on insulin drip for 48 hours, then transition. Preoperative hemoglobin A1c 7.6%, will need tight blood sugar control to prevent infection. Discontinue Cherry. Connect Cordis to continue CVP monitoring. We will remove his mediastinal chest tube, keep left pleural chest tubes for another 24 hours, monitor output. Continue Jensen catheter as his chronic for patient, continue to record strict accurate intake and output. Daily weights. More recommendations to follow based on patient's clinical course. Time with Patient: Greater than 30
[2023-06-08 15:06] LABS: Glucose,Whole Blood 121 mg/dL (70-110)
[2023-06-08 16:05] LABS: Glucose,Whole Blood 95 mg/dL (70-110)
[2023-06-08 17:14] LABS: Glucose,Whole Blood 119 mg/dL (70-110)
[2023-06-08 18:17] LABS: Glucose,Whole Blood 200 mg/dL (70-110)
[2023-06-08 19:02] LABS: Glucose,Whole Blood 195 mg/dL (70-110)
[2023-06-08 20:10] LABS: Glucose,Whole Blood 147 mg/dL (70-110)
[2023-06-08] MEDS: ATORVASTATIN 80 MG TAB PO SCH (21:01)
[2023-06-08] MEDS: SENNOSIDES-DOCUSATE SODIUM 1 EACH TAB PO SCH (21:01)
[2023-06-08 21:07] LABS: Glucose,Whole Blood 119 mg/dL (70-110)
[2023-06-08 22:13] LABS: Glucose,Whole Blood 81 mg/dL (70-110)
[2023-06-08 23:08] LABS: Glucose,Whole Blood 109 mg/dL (70-110)
[2023-06-09 00:15] LABS: Glucose,Whole Blood 133 mg/dL (70-110)
[2023-06-09] MEDS: HEPARIN SODIUM,PORCINE 5,000 UNIT/ML 1 ML VIAL SQ SCH ×4 (00:18→23:26)
[2023-06-09] MEDS: KETOROLAC 15 MG/ML 1 ML VIAL IVP SCH ×5 (00:18→23:25)
[2023-06-09 01:55] LABS: Glucose,Whole Blood 176 mg/dL (70-110)
[2023-06-09 03:03] LABS: Glucose,Whole Blood 150 mg/dL (70-110)
[2023-06-09 03:21] LABS: Basophils % (A) 0 %; Eosinophils # (A) 0.1 k/uL (0-0.7); Eosinophils % (A) 1 %; HCT 43.8 % (39.0-53.0); HGB 14.8 gm/dL (13.0-17.5); Ionized Calcium 4.7 mg/dL (4.5-5.3); Lymphocytes # (A) 1.1 k/uL (1.0-4.8); Lymphocytes % (A) 12 %; MCH 29.8 pg (25.0-35.0); MCHC 33.7 g/dL (31.0-37.0); MCV 88.6 fL (80.0-100.0); Monocytes # (A) 0.4 k/uL (0-1.0); Monocytes % (A) 4 %; Neutrophils # (A) 7.3 k/uL (1.3-7.7); Neutrophils % (A) 82 %; Platelet Count 130 k/uL (150-450); RBC 4.94 m/uL (4.30-5.90); RDW 14.2 % (11.5-15.5); WBC 8.9 k/uL (3.8-10.6)
[2023-06-09 03:29] LABS: ALT 18 U/L (4-49); African American GFR (CKD) >90 (>60 ml/min/1.73 sqM); Anion Gap 10 mmol/L; Blood Urea Nitrogen 10 mg/dL (9-20); Calcium 8.4 mg/dL (8.4-10.2); Carbon Dioxide 19 mmol/L (22-30); Chloride 103 mmol/L (98-107); Glucose 139 mg/dL (74-99); Non-African American GFR(CKD) >90 (>60 ml/min/1.73 sqM); Sodium 132 mmol/L (137-145); Total Bilirubin 1.3 mg/dL (0.2-1.3)
[2023-06-09 03:30] LABS: AST 37 U/L (17-59); Albumin 3.2 g/dL (3.5-5.0); Alkaline Phosphatase 65 U/L (38-126); Potassium 4.4 mmol/L (3.5-5.1); Total Protein 5.6 g/dL (6.3-8.2)
[2023-06-09 04:13] LABS: Glucose,Whole Blood 126 mg/dL (70-110)
[2023-06-09 06:10] LABS: Glucose,Whole Blood 89 mg/dL (70-110)
[2023-06-09] MEDS: PANTOPRAZOLE 40 MG TABLET PO SCH (06:41)
[2023-06-09 06:53] LABS: Glucose,Whole Blood 95 mg/dL (70-110)
--- NOTE | 2023-06-09 07:22 | P.PN ---
Subjective Progress Note Date: 06/09/23 Principal diagnosis: CABG The patient is a 68-year-old gentleman who sees Dr. 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 Recently he underwent a stress test and that came in to be abnormal. The stenosis was myocardial perfusion imaging services and that showed anterior apical fixed defect with cardiomyopathy. Subsequently an echocardiogram was performed and confirmed the cardiomyopathy. In the light of that heart catheterization was advised. The patient underwent a heart catheterization and that revealed chronic total occlusion of the left anterior descending artery. He was referred for open heart surgery and he underwent yesterday CABG 1 with FARIA to LAD. Kathy fields was extubated yesterday. June [id number] The patient was seen and evaluated this morning. Overall he seems to be stable. He was sitting in the chair position to look in any pain or distress. He is maintaining normal sinus mechanism. Currently he isn't on amiodarone IV. Beside that he is on dual antiplatelet therapy and only low intensity statin. I am going to increase the dose of statin from no intensity high intensity. Beside that he is on beta kamilla. Blood work appeared to be stable. Chest x- ray appeared to be stable as well. Examination is remarkable for diminished breathing sounds bilaterally June [id number] The patient was seen and evaluated this morning. Overall he seems to be stable from a cardiovascular standpoint of view. He is slightly tachycardic. The p ressure remains a stable rhythm going to increase the dose of metoprolol to 25 mg by mouth 3 times a day. Continue high intensity statin with the chest x-ray was reviewed this morning and showed small bilateral pleural effusion. Hemoglobin remained stable. Kidney function remained stable. Electrolytes remained stable as well. 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 Status post CABG 1 with FARIA into LAD Ischemic cardiomyopathy Hypertension Dyslipidemia Plan Continue the current medical regimen Increase the dose of metoprolol Follow-up with the patient Objective - Vital Signs Vital signs: Vital Signs Temp 98.8 F 06/09/23 04:00 Pulse 112 H 06/09/23 06:04 Resp 34 H 06/09/23 06:04 BP 132/76 06/09/23 06:04 Pulse Ox 90 L 06/09/23 06:04 FiO2 94 06/08/23 08:22 Intake & Output 06/08/23 06/09/23 06/09/23 18:59 06:59 18:59 Intake Total 796.261 294.303 Output Total 2415 1385 Balance -1618.739 -1090.697 Weight 91 kg 89.1 kg Intake: IV 513 252 Cardiac Output (0.9 70 Sodium Chloride) Lactated Ringers 1,000 ml 215 180 @ 20 mls/hr IV .Q24H [facility] Rx#:[id number] Magnesium Sulfate-D5w Pmx 100 1 gm In Dextrose/Water 1 100ml.bag @ 100 mls/hr IVPB Q1H [facility] Rx#: [id number] Pressure Bag (0.9 Sodium 78 72 Chloride) ceFAZolin 2 gm In Sodium 50 Chloride 0.9% 50 ml @ 100 mls/hr IVPB Q8HR [facility] Rx# :[id number] Intake, IV Titration 33.261 42.303 Amount Insulin Regular 100 unit 33.261 42.303 In Sodium Chloride 0.9% 100 ml @ Per Protocol IV .Q0M [facility] Rx#:[id number] Oral 250 Output: Chest Tube Drainage 115 65 Left Pleural/Mediastinal 115 65 Urine 2300 1320 Other: Voiding Method Indwelling Catheter Indwelling Catheter ABP, PAP, CO, CI - Last Documented Arterial Blood Pressure 173/73 Pulmonary Artery Pressure 17/0 Cardiac Output 5 Cardiac Index 2.4 - Labs CBC & Chem 7: 06/09/23 03:00 06/09/23 03:00 Labs: Abnormal Lab Results - Last 24 Hours (Table) 06/08/23 06/08/23 06/08/23 Range/Units 08:21 09:07 10:03 Plt Count (150-450) k/uL Sodium (137-145) mmol/L Carbon Dioxide (22-30) mmol/L Creatinine (0.66-1.25) mg/dL Glucose (74-99) mg/dL POC Glucose (mg/dL) 196 H 184 H 129 H (70-110) mg/dL Total Protein (6.3-8.2) g/dL Albumin (3.5-5.0) g/dL 06/08/23 06/08/23 06/08/23 Range/Units 11:09 12:06 13:03 Plt Count (150-450) k/uL Sodium (137-145) mmol/L Carbon Dioxide (22-30) mmol/L Creatinine (0.66-1.25) mg/dL Glucose (74-99) mg/dL POC Glucose (mg/dL) 69 L 146 H 183 H (70-110) mg/dL Total Protein (6.3-8.2) g/dL Albumin (3.5-5.0) g/dL 06/08/23 06/08/23 06/08/23 Range/Units 14:05 15:05 17:12 Plt Count (150-450) k/uL Sodium (137-145) mmol/L Carbon Dioxide (22-30) mmol/L Creatinine (0.66-1.25) mg/dL Glucose (74-99) mg/dL POC Glucose (mg/dL) 159 H 121 H 119 H (70-110) mg/dL Total Protein (6.3-8.2) g/dL Albumin (3.5-5.0) g/dL 06/08/23 06/08/23 06/08/23 Range/Units 18:15 19:01 20:09 Plt Count (150-450) k/uL Sodium (137-145) mmol/L Carbon Dioxide (22-30) mmol/L Creatinine (0.66-1.25) mg/dL Glucose (74-99) mg/dL POC Glucose (mg/dL) 200 H 195 H 147 H (70-110) mg/dL Total Protein (6.3-8.2) g/dL Albumin (3.5-5.0) g/dL 06/08/23 06/09/23 06/09/23 Range/Units 21:05 00:13 01:52 Plt Count (150-450) k/uL Sodium (137-145) mmol/L Carbon Dioxide (22-30) mmol/L Creatinine (0.66-1.25) mg/dL Glucose (74-99) mg/dL POC Glucose (mg/dL) 119 H 133 H 176 H (70-110) mg/dL Total Protein (6.3-8.2) g/dL Albumin (3.5-5.0) g/dL 06/09/23 06/09/23 06/09/23 Range/Units 03:00 03:00 03:02 Plt Count 130 L (150-450) k/uL Sodium 132 L (137-145) mmol/L Carbon Dioxide 19 L (22-30) mmol/L Creatinine 0.62 L (0.66-1.25) mg/dL Glucose 139 H (74-99) mg/dL POC Glucose (mg/dL) 150 H (70-110) mg/dL Total Protein 5.6 L (6.3-8.2) g/dL Albumin 3.2 L (3.5-5.0) g/dL 06/09/23 Range/Units 04:12 Plt Count (150-450) k/uL Sodium (137-145) mmol/L Carbon Dioxide (22-30) mmol/L Creatinine (0.66-1.25) mg/dL Glucose (74-99) mg/dL POC Glucose (mg/dL) 126 H (70-110) mg/dL Total Protein (6.3-8.2) g/dL Albumin (3.5-5.0) g/dL
[2023-06-09 08:27] LABS: Glucose,Whole Blood 144 mg/dL (70-110)
[2023-06-09] MEDS: ASPIRIN 325 MG TAB PO SCH (08:32)
[2023-06-09] MEDS: CLOPIDOGREL 75 MG TAB PO SCH (08:32)
[2023-06-09] MEDS: MULTIVITAMINS, THERA 1 EACH TAB PO SCH (08:32)
[2023-06-09] MEDS: AMIODARONE 200 MG TAB PO SCH ×2 (08:32→19:51)
[2023-06-09] MEDS: NICOTINE 14MG/24HR PATCH TRANSDERM SCH (08:32)
[2023-06-09] MEDS: LACTATED RINGERS 1,000 ML IV SCH (08:33)
--- NOTE | 2023-06-09 08:35 | XR ---
EXAMINATION TYPE: XR chest 1V portable DATE OF EXAM: 06/09/2023 COMPARISON: 06/08/2023 HISTORY: post op TECHNIQUE: Single frontal view of the chest is obtained. FINDINGS: Bilateral consolidation with left-sided chest tube. There is coarsened interstitium. Heart is enlarged. Postoperative change. No pneumothorax. Bilateral shoulder arthropathy. Remote left clav icular fracture. [place] catheter has been removed. IMPRESSION: 1. Postoperative change with bilateral consolidation stable. Mild venous congestion or pneumonitis st able. 2. No sizable pneumothorax.
[2023-06-09] MEDS ORDERED: METOPROLOL TARTRATE 25 MG TAB PO SCH (09:00)
[2023-06-09 09:15] LABS: Glucose,Whole Blood 143 mg/dL (70-110)
[2023-06-09] MEDS: IPRATROPIUM-ALBUTEROL 3 ML NEB INHALATION SCH ×4 (09:35→20:38)
--- NOTE | 2023-06-09 10:15 | P.PN ---
Subjective Progress Note Date: 06/09/23 This is a 68-year-old male patient with previous stenting of the LAD, quadrant underwent a recent cardiac catheterization the patient was found to have total occlusion of the LAD at the stent with distal reconstitution of the vessel via collaterals. Patient also had an echocardiogram that showed impaired LV function. Based on that, the patient was brought in today and he underwent an elective off-pump coronary artery bypass surgery 1 with FARIA to LAD. Estimated blood loss less than 50 mL PT I saw the patient immediately after he arrived to the intensive care unit. The patient was quite restless and he was placed on a combination of Precedex which was running at 1.4 mg/kg/h and propofol running at 30 mg/kg/m. The patient was on a mechanical ventilator. The patient was on assist-control mode at a rate of 12, tidal volume of 500, FiO2 of 100% and a PEEP of 5. The blood gas showed a pH of 7.27 with a pCO2 of 62 and pO2 of more than 400. Chest x-ray showed adequate expansion of both lungs. The patient and mediastinal and left lower chest tube. Output from the chest tubes are bloody and minimal at this point in time and those out of 150 mL and there is no evidence of air leak. The patient was hemodynamically stable. Cardiac output was 8 with an index of 4.0. The pulmonary artery pressures were 20/16. The patient is currently on nitroglycerin drip at 5 mcg/m and insulin drip at 2.5 units an hour. The patient is also on cleviprex drip running at 10 mg an hour.. The patient is doing otherwise well. Adequate urine output. No cardiac arrhythmias noted. This evaluation of 06/08/2023, the patient is extubated and patient is currently on room air oxygen. Doing well. Hemodynamically stable. [place] catheter removed. Chest x-ray shows adequate expansion of both lungs, no evidence of any pneumothorax. The pleural and mediastinal chest tubes are still in place, total amount of output has been in the order of 700 mL and both tubes are connected. The patient's hemoglobin today is at 15, sodium is at 132, BUN is at 10 with a creatinine of 0.4. Cardiac rhythm is sinus. Remains on insulin drip at 5 units an hour. No other significant events overnight. Awake and alert. Using incentive spirometer, falling approximately 1000 On 06/09/2023, the patient is postop day #2. The patient is doing well. No specific complaints. Chest tubes were removed today. Chest x-ray showed some small effusion and atelectatic change in lung bases bilaterally. He was having some chest discomfort which improved after removal of the chest tube. He is in sinus tachycardia and the metoprolol dose was increased up to 50 mg twice a day. He is hemodynamically stable. His BUN is at 10 with a creatinine of 0.6 and the white cycles of 8.9 with a hemoglobin of 14.8. He remains on insulin drip at 5based on his feeding habits and blood sugar is control and the patient was receiving metformin outpatient basis. He is ambulating. No altered mentation. No focal neurological deficits. Surgical 1 site is dry and clean. Objective - Vital Signs Vital signs: Vital Signs Temp 98.1 F 06/09/23 08:00 Pulse 109 H 06/09/23 09:35 Resp 16 06/09/23 09:35 BP 141/77 06/09/23 09:00 Pulse Ox 94 L 06/09/23 09:35 FiO2 94 06/08/23 08:22 Intake & Output 06/08/23 06/09/23 06/09/23 18:59 06:59 18:59 Intake Total 796.261 294.303 83 Output Total 2415 1385 380 Balance -1618.739 -1090.697 -297 Weight 91 kg 89.1 kg Intake: IV 513 252 83 Cardiac Output (0.9 70 Sodium Chloride) Lactated Ringers 1,000 ml 215 180 65 @ 20 mls/hr IV .Q24H SUDEEP Rx#:[id number] Magnesium Sulfate-D5w Pmx 100 1 gm In Dextrose/Water 1 100ml.bag @ 100 mls/hr IVPB Q1H SUDEEP Rx#: [id number] Pressure Bag (0.9 Sodium 78 72 18 Chloride) ceFAZolin 2 gm In Sodium 50 Chloride 0.9% 50 ml @ 100 mls/hr IVPB Q8HR SUDEEP Rx# :[id number] Intake, IV Titration 33.261 42.303 0 Amount Insulin Regular 100 unit 33.261 42.303 0 In Sodium Chloride 0.9% 100 ml @ Per Protocol IV .Q0M SUDEEP Rx#:[id number] Oral 250 Output: Chest Tube Drainage 115 65 30 Left Pleural/Mediastinal 115 65 30 Urine 2300 1320 350 Other: Voiding Method Indwelling Catheter Indwelling Catheter ABP, PAP, CO, CI - Last Documented Arterial Blood Pressure 141/64 Pulmonary Artery Pressure 17/0 Cardiac Output 5 Cardiac Index 2.4 - Exam Gen. appearance, the patient is calm and comfortable on RA Head exam was generally normal. There was no scleral icterus or corneal arcus. Mucous membranes were moist. Neck was supple and without jugular venous distension, thyromegaly, or carotid bruits. Carotids were easily palpable bilaterally. There was no adenopathy. Lungs sounds are diminished bilaterally. Chest tubes are removed Cardiac exam revealed the PMI to be normally situated and sized. The rhythm was regular and no extrasystoles were noted during several minutes of auscultation. The first and second heart sounds were normal and physiologic splitting of the second heart sound was noted. There were no murmurs, rubs, clicks, or gallops. The sternotomy site is dry clean and intact. Abdominal exam revealed normal bowel sounds. The abdomen was soft, non-tender, and without masses, organomegaly, or appreciable enlargement of the abdominal aorta. Examination of the extremities revealed easily palpable radial, femoral and pedal pulses. There was no cyanosis, clubbing or edema. Examination of the skin revealed no evidence of significant rashes, suspicious appearing nevi or other concerning lesions. Neurologically, the patient has OAx3 - Labs CBC & Chem 7: 06/09/23 03:00 06/09/23 03:00 Labs: Abnormal Lab Results - Last 24 Hours (Table) 06/08/23 06/08/23 06/08/23 Range/Units 11:09 12:06 13:03 Plt Count (150-450) k/uL Sodium (137-145) mmol/L Carbon Dioxide (22-30) mmol/L Creatinine (0.66-1.25) mg/dL Glucose (74-99) mg/dL POC Glucose (mg/dL) 69 L 146 H 183 H (70-110) mg/dL Total Protein (6.3-8.2) g/dL Albumin (3.5-5.0) g/dL 06/08/23 06/08/23 06/08/23 Range/Units 14:05 15:05 17:12 Plt Count (150-450) k/uL Sodium (137-145) mmol/L Carbon Dioxide (22-30) mmol/L Creatinine (0.66-1.25) mg/dL Glucose (74-99) mg/dL POC Glucose (mg/dL) 159 H 121 H 119 H (70-110) mg/dL Total Protein (6.3-8.2) g/dL Albumin (3.5-5.0) g/dL 06/08/23 06/08/23 06/08/23 Range/Units 18:15 19:01 20:09 Plt Count (150-450) k/uL Sodium (137-145) mmol/L Carbon Dioxide (22-30) mmol/L Creatinine (0.66-1.25) mg/dL Glucose (74-99) mg/dL POC Glucose (mg/dL) 200 H 195 H 147 H (70-110) mg/dL Total Protein (6.3-8.2) g/dL Albumin (3.5-5.0) g/dL 06/08/23 06/09/23 06/09/23 Range/Units 21:05 00:13 01:52 Plt Count (150-450) k/uL Sodium (137-145) mmol/L Carbon Dioxide (22-30) mmol/L Creatinine (0.66-1.25) mg/dL Glucose (74-99) mg/dL POC Glucose (mg/dL) 119 H 133 H 176 H (70-110) mg/dL Total Protein (6.3-8.2) g/dL Albumin (3.5-5.0) g/dL 06/09/23 06/09/23 06/09/23 Range/Units 03:00 03:00 03:02 Plt Count 130 L (150-450) k/uL Sodium 132 L (137-145) mmol/L Carbon Dioxide 19 L (22-30) mmol/L Creatinine 0.62 L (0.66-1.25) mg/dL Glucose 139 H (74-99) mg/dL POC Glucose (mg/dL) 150 H (70-110) mg/dL Total Protein 5.6 L (6.3-8.2) g/dL Albumin 3.2 L (3.5-5.0) g/dL 10/06/23 10/06/23 10/06/23 Range/Units 04:12 08:25 09:12 Plt Count (150-450) k/uL Sodium (137-145) mmol/L Carbon Dioxide (22-30) mmol/L Creatinine (0.66-1.25) mg/dL Glucose (74-99) mg/dL POC Glucose (mg/dL) 126 H 144 H 143 H (70-110) mg/dL Total Protein (6.3-8.2) g/dL Albumin (3.5-5.0) g/dL Assessment and Plan Plan: Coronary artery disease with complete occlusion of the LAD with collateral circulation. The patient underwent an off-pump single-vessel bypass surgery with FARIA to LAD. The patient is currently postop day #2. For now, the patient is hemodynamically stable Postthoracotomy, currently intubated on a mechanical ventilator. Chest x-ray was noted. Extubated the patient is currently on room air oxygen. Chest tubes are removed Hypertension off clevidipine drip Pulmonary nodule measuring 7 mm in size in the right lower lobe, not at avid Chronic systolic heart failure. Cardiac output and index is adequate at this point in time. Mild to moderate COPD with an FEV1 of 62% of predicted and a diffusion capacity of 44% of predicted Diabetes mellitus2 Hyperlipidemia History of smoking Sinus tachycardia Plan IS Overall hemodynamically stable Insulin drip will be discontinued and the patient will be given 12 units of Levemir and a sliding scale coverage Chest tubes to be removed today Continue aspirin and Plavix Continue amiodarone 400 mg by mouth twice a day and the patient's current cardiac rhythm is sinus Continue Lipitor 80 mg by mouth daily Metoprolol 50 mg twice a day Patient has adequate pain control We'll continue to follow make further recommendations based on the overall pulmonary progress. The pulmonary nodule will be followed up on outpatient basis by his hog counter, Dr. Bashir
[2023-06-09] MEDS: METOPROLOL TARTRATE 50 MG TAB PO SCH ×2 (10:16→19:51)
[2023-06-09 10:21] LABS: Glucose,Whole Blood 133 mg/dL (70-110)
[2023-06-09] MEDS ORDERED: DEXTROSE 50% SYRINGE 50 ML IVP PRN ×2 (11:14)
--- NOTE | 2023-06-09 11:26 | P.PN ---
Subjective Progress Note Date: 06/09/23 Principal diagnosis: Coronary artery disease. Past medical history significant for hypertension, hyperlipidemia, pulmonary nodule measuring 7 mm in size in the right lower lobe, chronic systolic heart failure with an ejection fraction 30-35% preoperatively, mild to moderate COPD with an FEV1 of 62% of predicted value and a diffusion capacity of 44% of predicted value preoperatively, chronic ongoing tobacco dependence, and diabetes mellitus type 2. POD #2 off-pump CABG 1 with left internal mammary artery to left anterior descending coronary artery, ligation of the left atrial appendage with a 35 mm Atricure clip. The patient was seen and examined in follow-up today 06/09/2023 at his bedside in the intensive care unit. He is sitting up to the bedside chair, is awake, alert, oriented 3 and is in no acute apparent distress. He denies any complaints of shortness of breath or pain at this time. Reports his pain is well controlled on the current pain medication regimen. Oxygen saturations are 93% on 1 L nasal cannula and he is achieving 750 mL on his incentive spirometry with encouragement. Bedside telemetry showing sinus tachycardia heart rate 112 bpm. He remains hemodynamically stable and is currently on no inotropic pressure support. Right IJ cordis remains in place with continuous CVP monitoring, current CVP pressures 7 mmHg. Jensen cath remains in place for accurate I's and O's, urine output 775 mL output in the last 8 hours. Left pleural chest tube remains in place to low continuous wall suction -20 cm H2O. No air leak is present. Draining thin serosanguineous drainage with 65 mL output in the last 8 hours and 130 mL output in the last 24 hours. Chest x-ray and laboratory results have been reviewed. Objective - Vital Signs Vital signs: Vital Signs Temp 98.1 F 06/09/23 08:00 Pulse 105 H 06/09/23 10:30 Resp 33 H 06/09/23 10:30 BP 145/77 06/09/23 10:00 Pulse Ox 93 L 06/09/23 10:30 FiO2 94 06/08/23 08:22 Intake & Output 06/08/23 06/09/23 06/09/23 18:59 06:59 18:59 Intake Total 796.261 294.303 99 Output Total 2415 1385 530 Balance -1618.739 -1090.697 -431 Weight 91 kg 89.1 kg Intake: IV 513 252 99 Cardiac Output (0.9 70 Sodium Chloride) Lactated Ringers 1,000 ml 215 180 75 @ 20 mls/hr IV .Q24H SUDEEP Rx#:[id number] Magnesium Sulfate-D5w Pmx 100 1 gm In Dextrose/Water 1 100ml.bag @ 100 mls/hr IVPB Q1H SUDEEP Rx#: [id number] Pressure Bag (0.9 Sodium 78 72 24 Chloride) ceFAZolin 2 gm In Sodium 50 Chloride 0.9% 50 ml @ 100 mls/hr IVPB Q8HR SUDEEP Rx# :[id number] Intake, IV Titration 33.261 42.303 0 Amount Insulin Regular 100 unit 33.261 42.303 0 In Sodium Chloride 0.9% 100 ml @ Per Protocol IV .Q0M SUDEEP Rx#:[id number] Oral 250 Output: Chest Tube Drainage 115 65 30 Left Pleural/Mediastinal 115 65 30 Urine 2300 1320 500 Other: Voiding Method Indwelling Catheter Indwelling Catheter ABP, PAP, CO, CI - Last Documented Arterial Blood Pressure 141/64 Pulmonary Artery Pressure 17/0 Cardiac Output 5 Cardiac Index 2.4 - Exam CONSTITUTIONAL: Sitting up to the bedside chair in the intensive care unit, appears comfortable, cooperative, no apparent acute distress. HEENT: Neck is supple, no JVD, no lymphadenopathy. Right IJ Cordis place and functioning. RESPIRATORY: Lungs sounds essentially clear throughout, diminished to his bilateral bases with few expiratory wheezes. Respirations are symmetrical and nonlabored. Currently on 1 L nasal cannula with oxygen saturations 93%. Able to achieve 750 mL on their incentive spirometry. Strong cough. CARDIOVASCULAR: Regular rhythm and rate. S1 and S2 present, negative for S3, gallop or murmur. Sternum is stable. Palpable peripheral pulses bilaterally, no edema to his bilateral lower extremities. No calf pain or tenderness noted. Heart hugger in place with patient demonstrating appropriate use. Knee-high WOLF hose and sequential compression devices in place to his bilateral lower extremit ies. GASTROINTESTINAL: Abdomen soft, nontender, nondistended. Active bowel sounds present 4 quadrants. Tolerating diet. Passing flatus. No guarding or rigidity. GENITOURINARY: Jensen present draining clear, yellow urine. Urine output 775 mL in the last 8 hours INTEGUMENTARY: Skin is warm and dry with no evidence of clubbing or cyanosis. Midline sternal incision clean dry and well approximated, covered with dry intact dressing. NEUROLOGIC: Cranial nerves II through XII intact. No focal deficits. MUSKULOSKELETAL: Able to move all extremities, strength equal bilaterally. PSYCHIATRIC: Alert and oriented to person place and time, appropriate affect, intact judgment and insight. INVASIVE LINES AND TUBES: Left pleural chest tube present and connected to low continuous wall suction, no air leaks present. Left pleural chest tube with 65 mL of thin serosanguineous drainage overnight, 135 mL output in the last 24 hours. Right brachial arterial line in place and right IJ Cordis in place, with current monitoring showing a CVP of 7 mmHg. - Allied health notes Allied health notes reviewed: nursing - Labs CBC & Chem 7: 06/09/23 03:00 06/09/23 03:00 Labs: Abnormal Lab Results - Last 24 Hours (Table) 06/08/23 06/08/23 06/08/23 Range/Units 12:06 13:03 14:05 Plt Count (150-450) k/uL Sodium (137-145) mmol/L Carbon Dioxide (22-30) mmol/L Creatinine (0.66-1.25) mg/dL Glucose (74-99) mg/dL POC Glucose (mg/dL) 146 H 183 H 159 H (70-110) mg/dL Total Protein (6.3-8.2) g/dL Albumin (3.5-5.0) g/dL 06/08/23 06/08/23 06/08/23 Range/Units 15:05 17:12 18:15 Plt Count (150-450) k/uL Sodium (137-145) mmol/L Carbon Dioxide (22-30) mmol/L Creatinine (0.66-1.25) mg/dL Glucose (74-99) mg/dL POC Glucose (mg/dL) 121 H 119 H 200 H (70-110) mg/dL Total Protein (6.3-8.2) g/dL Albumin (3.5-5.0) g/dL 06/08/23 06/08/23 06/08/23 Range/Units 19:01 20:09 21:05 Plt Count (150-450) k/uL Sodium (137-145) mmol/L Carbon Dioxide (22-30) mmol/L Creatinine (0.66-1.25) mg/dL Glucose (74-99) mg/dL POC Glucose (mg/dL) 195 H 147 H 119 H (70-110) mg/dL Total Protein (6.3-8.2) g/dL Albumin (3.5-5.0) g/dL 06/09/23 06/09/23 06/09/23 Range/Units 00:13 01:52 03:00 Plt Count 130 L (150-450) k/uL Sodium (137-145) mmol/L Carbon Dioxide (22-30) mmol/L Creatinine (0.66-1.25) mg/dL Glucose (74-99) mg/dL POC Glucose (mg/dL) 133 H 176 H (70-110) mg/dL Total Protein (6.3-8.2) g/dL Albumin (3.5-5.0) g/dL 06/09/23 06/09/23 06/09/23 Range/Units 03:00 03:02 04:12 Plt Count (150-450) k/uL Sodium 132 L (137-145) mmol/L Carbon Dioxide 19 L (22-30) mmol/L Creatinine 0.62 L (0.66-1.25) mg/dL Glucose 139 H (74-99) mg/dL POC Glucose (mg/dL) 150 H 126 H (70-110) mg/dL Total Protein 5.6 L (6.3-8.2) g/dL Albumin 3.2 L (3.5-5.0) g/dL 06/09/23 06/09/23 06/09/23 Range/Units 08:25 09:12 10:19 Plt Count (150-450) k/uL Sodium (137-145) mmol/L Carbon Dioxide (22-30) mmol/L Creatinine (0.66-1.25) mg/dL Glucose (74-99) mg/dL POC Glucose (mg/dL) 144 H 143 H 133 H (70-110) mg/dL Total Protein (6.3-8.2) g/dL Albumin (3.5-5.0) g/dL - Imaging and Cardiology Chest x-ray: report reviewed, image reviewed Assessment and Plan Assessment: Coronary artery disease, status post coronary artery bypass grafting 1 vessel, FARIA to the left anterior descending coronary artery Hypertension, Hyperlipidemia History of pulmonary nodule measuring 7 mm in size in the right lower lobe Mild to moderate COPD with an FEV1 62% predicted value and a diffusion capacity of 44% of predicted value preoperatively Chronic systolic heart failure with an ejection fraction of 30-35% preoperatively Diabetes mellitus type 2 Chronic ongoing tobacco dependence Plan: Continue to maximize medical management with aspirin, statin, Plavix and beta kamilla. Will increase metoprolol tartrate 50 mg by mouth twice a day. We will remove his left pleural chest tube. Continue amiodarone for A. fib prophylaxis, will transition to oral 400 mg by mouth twice a day, will taper per protocol. Encourage incentive spirometry 10 times every hour while awake. Bronchodilators per pulmonology. Will monitor daily labs and chest x-rays. Electrolyte replacement per protocol Increase activity as tolerated. PT/OT/cardiac rehab following. GI/DVT prophylaxis. Pain control with current medication regimen. Discontinue [place] once the chest tube has been removed. Insulin management per internal medicine. Patient to remain on insulin drip for 48 hours, then transition. Preoperative hemoglobin A1c 7.6%, will need tight blood sugar control to prevent infection. Discontinue right IJ Cordis. We will remove his left pleural chest tube. Remove Jensen catheter, continue record strict inaccurate I's and O's. May bladder scan every 6 hours and when necessary postvoid residual. If greater than or equal to 300 mL of urine may straight cath. Continue daily weights. First postoperative shower starting tomorrow 06/10/2023. Transferred to the third floor cardiac stepdown unit when bed available. More recommendations to follow based on patient's clinical course. Time with Patient: Greater than 30
[2023-06-09] MEDS ORDERED: ACETAMINOPHEN TAB 500 MG TAB PO PRN (11:43)
[2023-06-09] MEDS: LOSARTAN 25 MG TAB PO SCH (12:24)
[2023-06-09 12:25] LABS: Glucose,Whole Blood 91 mg/dL (70-110)
[2023-06-09] MEDS: INSULIN ASPART (NovoLOG) 100 UNIT/ML VIAL SQ SCH ×3 (12:32→19:51)
[2023-06-09 13:22] LABS: Glucose,Whole Blood 191 mg/dL (70-110)
[2023-06-09] MEDS: INSULIN DETEMIR (LEVEMIR) 100 UNIT/ML SYR SQ SCH (13:22)
--- NOTE | 2023-06-09 15:50 | P.PN ---
Subjective Progress Note Date: 06/09/23 HISTORY OF PRESENT ILLNESS This is a 68 year old male with past medical history of hypertension, hyperlipi demia, coronary artery disease status post LAD angioplasty followed by stent thrombosis and second angioplasty in 2017, diabetes mellitus type 2, ALLERGIC rhinitis, enlarged prostate, carotid stenosis bilaterally. Patient was recently established in the office in March of this year. He has been followed for a number of issues. He underwent a stress test that revealed global hypokinesia with EF of 27% and fixed defects involving the mid anterior wall and mid inferior wall, ischemic cardiopathy myopathy should be considered. He was then sent to cardiology started on metoprolol and Jardiance but refused to take the Jardiance. He underwent a cardiac catheterization on 05/[address] Doris Vivar which revealed chronic total occlusion of the proximal LAD, normal circumflex coronary artery and nondominant right. At that time, the ischemic cardiomyopathy will be confirmed by echocardiogram and consider AICD. Echocardiogram was performed on 05/02 which revealed EF of 30-35%, trace aortic regurgitation and mild aortic stenosis, trace mitral regurgitation. Patient was referred to cardiothoracic surgery for CABG. Other workup that has been in process low-dose CAT scan which did identify pulmonary nodule and PET scan or biopsy was recommended. The patient was scheduled for PET scan and follow up with Dr. Aguilar. Patient was brought in the hospital by the cardiac thoracic surgery team status post 1 vessel CABG. Patient is in the intensive care unit and in the extubation process at this time. He has done well in the postop period and has been hemodynamically stable. 06/08: Patient remains in the intensive care unit. He has been successfully extubated currently on room air. [place] catheter was removed today. He is currently on insulin drip and CBGs are running 69-196. Telemetry is sinus rhythm. Blood pressure 108/79, heart rate in the 70s and 80s, pulse ox 100% on room air. Hemoglobin today 15. WBC 8.6. Platelet count 155. Sodium 132, potassium 3.6, creatinine 0.49. Repeat chest x-ray reveals postoperative changes. Patient is reaching greater than 500 on incentive spirometry. 06/09: Patient remains in the intensive care unit. Patient has had no postop complications. Chest tubes have been removed. Metoprolol was increased to 50 mg twice daily for tachycardia. Telemetry is sinus rhythm. He remains on insulin drip and blood sugars well controlled. Insulin drip was discontinued and patient started on Levemir 9u and sliding scale. We will resume metformin increased to 1000mg bid. Repeat chest x-ray reveals postoperative changes. Mild venous congestion or pneumonitis stable, no sizable pneumothorax. Repeat blood work reveals WBC 8.9, hemoglobin 14.8, platelet count 130. Sodium 132, potassium 4.4, chloride 103, CO2 19, BUN 10 and creatinine 0.62. Blood sugar 139. REVIEW OF SYSTEMS Constitutional: No fever, no chills, no night sweats. No weight change. No weakness, fatigue or lethargy. No daytime sleepiness. EENT: No headache. No blurred vision or double vision, no loss of vision. No loss of Hearing, no ringing in the ears, no dizziness. No nasal drainage or congestion. No epistaxis. No sore throat. Lungs: No shortness of breath, cough, no sputum production. No wheezing. Cardiovascular: Reported chest discomfort, no lower extremity edema. No palpitations. No paroxysmal nocturnal dyspnea. No orthopnea. No lightheadedne ss or dizziness. No syncopal episodes. Abdominal: No abdominal pain. No nausea, vomiting. No diarrhea. No constipation. No bloody or tarry stools. No loss of appetite. Genitourinary: No dysuria, increased frequency, urgency. No urinary retention. Musculoskeletal: No myalgias. No muscle weakness, no gait dysfunction, no frequent falls. No back pain. No neck pain. Integumentary: No wounds, no lesions. No rash or pruritus. No unusual bruising. No change in hair or nails. Neurologic: No aphasia. No facial droop. No change in mentation. No head injury. No headache. No paralysis. No paresthesia. Psychiatric: No depression. No anxiety. No mood swings. Endocrine: No abnormal blood sugars. No weight change. No excessive sweating or thirst. No cold intolerance. PHYSICAL EXAMINATION Gen: This is a 68-year-old male. He is resting in chair appears to be comfortable and in no acute distress. HEENT: Head is atraumatic, normocephalic. Pupils equal, round. Sclerae is a nicteric. NECK: Supple. No JVD. No lymphadenopathy. No thyromegaly. LUNGS: Diminished breath sounds bilaterally. No intercostal retractions. HEART: First heart sound is depressed, second heart sound is normal, 2/6 systolic ejection murmur at left sternal border. ABDOMEN: Soft. Bowel sounds are present. No masses. No tenderness. EXTREMITIES: No pedal edema. No calf tenderness. NEUROLOGICAL: Patient is awake, alert and able to follow commands. Cranial nerves 2 through 12 are grossly intact. ASSESSMENT AND PLAN 1. Coronary artery disease status post 1 vessel CABG FARIA to LAD, 06/07. Cont inue current management per cardiothoracic surgery. Continue patient on aspirin, atorvastatin, Plavix, Lopressor, amiodarone. Continue Halma as needed for pain. Continue patient on DuoNeb treatments 4 times daily. 2. Diabetes mellitus type 2. Patient is off insulin drip and started on Levemir 9 u and scale We will resume metformin 500 mg bid. At tie of discharge plan to increase Metformin to 100 mg bid and discontinue insulin. 3. Hypertension. Losartan 25 mg daily, Lopressor 50 mg twice daily monitor blood pressure. 4. Hyperlipidemia. Continue atorvastatin 80 mg hs. 5. Enlarged prostate. Monitor for urinary retention. 6. Carotid stenosis bilaterally, stable. 7. Ischemic cardiomyopathy. Continue patient on Lopressor 50 mg twice daily. 8. Tobacco use and dependence. Patient is on a nicotine patch. Smoking cessation. 9. Pulmonary nodule. Patient will have PET scan and follow-up with Dr. Bashir. 10. DVT prophylaxis. Heparin- 5000 units subcu every 8 hours. 11. GI prophylaxis. Protonix 40 mg daily. Impression and plan of care have been directed as dictated by the signing physician. Rosario Shankar nurse practitioner acting as scribe for signing physician. Objective - Vital Signs Vital signs: Vital Signs Temp 98.1 F 06/09/23 08:00 Pulse 93 06/09/23 13:30 Resp 37 H 06/09/23 13:30 BP 137/74 06/09/23 13:30 Pulse Ox 93 L 06/09/23 13:30 FiO2 100 06/09/23 14:14 Intake & Output 06/08/23 06/09/23 06/09/23 18:59 06:59 18:59 Intake Total 796.261 294.303 99 Output Total 2415 1385 705 Balance -1618.739 -1090.697 -606 Weight 91 kg 89.1 kg Intake: IV 513 252 99 Cardiac Output (0.9 70 Sodium Chloride) Lactated Ringers 1,000 ml 215 180 75 @ 20 mls/hr IV .Q24H SUDEEP Rx#:[id number] Magnesium Sulfate-D5w Pmx 100 1 gm In Dextrose/Water 1 100ml.bag @ 100 mls/hr IVPB Q1H SUDEEP Rx#: [id number] Pressure Bag (0.9 Sodium 78 72 24 Chloride) ceFAZolin 2 gm In Sodium 50 Chloride 0.9% 50 ml @ 100 mls/hr IVPB Q8HR SUDEEP Rx# :[id number] Intake, IV Titration 33.261 42.303 0 Amount Insulin Regular 100 unit 33.261 42.303 0 In Sodium Chloride 0.9% 100 ml @ Per Protocol IV .Q0M SUDEEP Rx#:[id number] Oral 250 Output: Chest Tube Drainage 115 65 30 Left Pleural/Mediastinal 115 65 30 Urine 2300 1320 675 Other: Voiding Method Indwelling Catheter Indwelling Catheter Indwelling Catheter ABP, PAP, CO, CI - Last Documented Arterial Blood Pressure 141/64 Pulmonary Artery Pressure 17/0 Cardiac Output 5 Cardiac Index 2.4 - Labs CBC & Chem 7: 06/09/23 03:00 06/09/23 03:00 Labs: Abnormal Lab Results - Last 24 Hours (Table) 06/08/23 06/08/23 06/08/23 Range/Units 15:05 17:12 18:15 Plt Count (150-450) k/uL Sodium (137-145) mmol/L Carbon Dioxide (22-30) mmol/L Creatinine (0.66-1.25) mg/dL Glucose (74-99) mg/dL POC Glucose (mg/dL) 121 H 119 H 200 H (70-110) mg/dL Total Protein (6.3-8.2) g/dL Albumin (3.5-5.0) g/dL 06/08/23 06/08/23 06/08/23 Range/Units 19:01 20:09 21:05 Plt Count (150-450) k/uL Sodium (137-145) mmol/L Carbon Dioxide (22-30) mmol/L Creatinine (0.66-1.25) mg/dL Glucose (74-99) mg/dL POC Glucose (mg/dL) 195 H 147 H 119 H (70-110) mg/dL Total Protein (6.3-8.2) g/dL Albumin (3.5-5.0) g/dL 06/09/23 06/09/23 06/09/23 Range/Units 00:13 01:52 03:00 Plt Count 130 L (150-450) k/uL Sodium (137-145) mmol/L Carbon Dioxide (22-30) mmol/L Creatinine (0.66-1.25) mg/dL Glucose (74-99) mg/dL POC Glucose (mg/dL) 133 H 176 H (70-110) mg/dL Total Protein (6.3-8.2) g/dL Albumin (3.5-5.0) g/dL 06/09/23 06/09/23 06/09/23 Range/Units 03:00 03:02 04:12 Plt Count (150-450) k/uL Sodium 132 L (137-145) mmol/L Carbon Dioxide 19 L (22-30) mmol/L Creatinine 0.62 L (0.66-1.25) mg/dL Glucose 139 H (74-99) mg/dL POC Glucose (mg/dL) 150 H 126 H (70-110) mg/dL Total Protein 5.6 L (6.3-8.2) g/dL Albumin 3.2 L (3.5-5.0) g/dL 06/09/23 06/09/23 06/09/23 Range/Units 08:25 09:12 10:19 Plt Count (150-450) k/uL Sodium (137-145) mmol/L Carbon Dioxide (22-30) mmol/L Creatinine (0.66-1.25) mg/dL Glucose (74-99) mg/dL POC Glucose (mg/dL) 144 H 143 H 133 H (70-110) mg/dL Total Protein (6.3-8.2) g/dL Albumin (3.5-5.0) g/dL 06/09/23 Range/Units 13:21 Plt Count (150-450) k/uL Sodium (137-145) mmol/L Carbon Dioxide (22-30) mmol/L Creatinine (0.66-1.25) mg/dL Glucose (74-99) mg/dL POC Glucose (mg/dL) 191 H (70-110) mg/dL Total Protein (6.3-8.2) g/dL Albumin (3.5-5.0) g/dL
[2023-06-09] MEDS: CLEVIDIPINE BUTYRATE 25 MG in EMPTY BAG 1 BAG IV SCH (16:46)
[2023-06-09 16:48] LABS: Glucose,Whole Blood 182 mg/dL (70-110)
[2023-06-09] MEDS: metFORMIN 500 MG TAB PO SCH (16:51)
[2023-06-09 19:39] LABS: Glucose,Whole Blood 163 mg/dL (70-110)
[2023-06-09] MEDS: SENNOSIDES-DOCUSATE SODIUM 1 EACH TAB PO SCH (19:51)
[2023-06-09] MEDS: ATORVASTATIN 80 MG TAB PO SCH (19:51)
[2023-06-10 05:49] LABS: Glucose,Whole Blood 140 mg/dL (70-110)
[2023-06-10] MEDS: INSULIN ASPART (NovoLOG) 100 UNIT/ML VIAL SQ SCH (05:57)
[2023-06-10] MEDS: INSULIN DETEMIR (LEVEMIR) 100 UNIT/ML SYR SQ SCH (06:04)
[2023-06-10] MEDS: PANTOPRAZOLE 40 MG TABLET PO SCH (06:04)
[2023-06-10] MEDS: KETOROLAC 15 MG/ML 1 ML VIAL IVP SCH ×2 (06:04→11:02)
[2023-06-10] MEDS: metFORMIN 500 MG TAB PO SCH (06:04)
[2023-06-10] MEDS: METOPROLOL TARTRATE 50 MG TAB PO SCH (08:04)
[2023-06-10] MEDS: ASPIRIN 325 MG TAB PO SCH (08:04)
[2023-06-10] MEDS: NICOTINE 14MG/24HR PATCH TRANSDERM SCH (08:05)
[2023-06-10] MEDS: MULTIVITAMINS, THERA 1 EACH TAB PO SCH (08:05)
[2023-06-10] MEDS: HEPARIN SODIUM,PORCINE 5,000 UNIT/ML 1 ML VIAL SQ SCH (08:05)
[2023-06-10] MEDS: CLOPIDOGREL 75 MG TAB PO SCH (08:05)
[2023-06-10] MEDS: LOSARTAN 25 MG TAB PO SCH (08:05)
[2023-06-10] MEDS: AMIODARONE 200 MG TAB PO SCH (08:05)
[2023-06-10 08:25] LABS: Basophils % (A) 0 %; Eosinophils # (A) 0.1 k/uL (0-0.7); Eosinophils % (A) 2 %; HCT 47.7 % (39.0-53.0); HGB 15.7 gm/dL (13.0-17.5); Lymphocytes % (A) 14 %; MCH 29.9 pg (25.0-35.0); MCV 90.5 fL (80.0-100.0); Mean Platelet Volume 7.5; Monocytes # (A) 0.3 k/uL (0-1.0); Monocytes % (A) 5 %; Neutrophils # (A) 5.9 k/uL (1.3-7.7); Neutrophils % (A) 78 %; Platelet Count 168 k/uL (150-450); RBC 5.27 m/uL (4.30-5.90); RDW 13.9 % (11.5-15.5); WBC 7.5 k/uL (3.8-10.6)
[2023-06-10 08:31] LABS: ALT 19 U/L (4-49); AST 25 U/L (17-59); African American GFR (CKD) >90 (>60 ml/min/1.73 sqM); Albumin 3.3 g/dL (3.5-5.0); Alkaline Phosphatase 64 U/L (38-126); Anion Gap 7 mmol/L; Blood Urea Nitrogen 11 mg/dL (9-20); Calcium 8.5 mg/dL (8.4-10.2); Carbon Dioxide 22 mmol/L (22-30); Chloride 105 mmol/L (98-107); Glucose 171 mg/dL (74-99); Non-African American GFR(CKD) >90 (>60 ml/min/1.73 sqM); Potassium 4.1 mmol/L (3.5-5.1); Sodium 134 mmol/L (137-145); Total Bilirubin 1.1 mg/dL (0.2-1.3); Total Protein 5.8 g/dL (6.3-8.2)
[2023-06-10] MEDS: IPRATROPIUM-ALBUTEROL 3 ML NEB INHALATION SCH ×2 (08:32→11:46)
--- NOTE | 2023-06-10 08:54 | P.PN ---
Subjective Progress Note Date: 06/10/23 Principal diagnosis: Coronary artery disease. Previous medical history of CAD with previous myocardial infarction and PCI in 2017, ischemic cardiomyopathy, hypertension, hyperlipidemia, pulmonary nodule, current ongoing tobacco dependence, mild COPD, right internal carotid artery stenosis greater than 50%, and diabetes mellitus type 2 POD #3 off-pump CABG 1 with left internal mammary artery to left anterior descending coronary artery, ligation of the left atrial appendage with a 35 mm Atricure clip The patient was seen and examined this morning sitting up in a cardiac stepdown unit in no acute distress. States pain is controlled on current medication regimen, mostly hurts with coughing, denies shortness of breath. Remains in sinus rhythm, hemodynamically stable. He has been ambulatory without difficulty. Currently on room air with oxygen saturation in the mid 90s, able to achieve 1000 mL on his incentive spirometry. States he feels ready to go home. No other new concerns. Objective - Vital Signs Vital signs: Vital Signs Temp 97.8 F 06/09/23 23:29 Pulse 82 06/10/23 04:00 Resp 18 06/10/23 04:00 BP 149/71 06/10/23 04:00 Pulse Ox 91 L 06/09/23 14:30 FiO2 100 06/09/23 14:14 Intake & Output 06/09/23 06/10/23 06/10/23 18:59 06:59 18:59 Intake Total 99 Output Total 905 200 Balance -806 -200 Weight 88.2 kg Intake: IV 99 Lactated Ringers 1,000 ml 75 @ 20 mls/hr IV .Q24H SUDEEP Rx#:[id number] Pressure Bag (0.9 Sodium 24 Chloride) Intake, IV Titration 0 Amount Insulin Regular 100 unit 0 In Sodium Chloride 0.9% 100 ml @ Per Protocol IV .Q0M SUDEEP Rx#:[id number] Output: Chest Tube Drainage 30 Left Pleural/Mediastinal 30 Urine 875 200 Other: Voiding Method Indwelling Catheter ABP, PAP, CO, CI - Last Documented Arterial Blood Pressure 141/64 Pulmonary Artery Pressure 17/0 Cardiac Output 5 Cardiac Index 2.4 - Exam CONSTITUTIONAL: Appears comfortable, cooperative, no acute distress RESPIRATORY: Lungs sounds diminished bilaterally. Respirations even, nonlabored. Currently on room air with oxygen saturation 94%. Able to achieve 1000 mL on incentive spirometry. Strong cough. CARDIOVASCULAR: S1, S2 present. Regular rate and rhythm, sinus rhythm on telemetry. Sternum stable. Palpable peripheral pulses bilaterally. No edema present. No calf pain or tenderness noted. Heart hugger in place with patient demonstrating appropriate use. Antiembolism stockings, SCDs present. GASTROINTESTINAL: Abdomen soft, nontender, nondistended. Active bowel sounds present 4 quadrants. Tolerating diet GENITOURINARY: Continues to void, output 1075 mL in the last 24 hours INTEGUMENTARY: Skin is warm and dry with evidence of good perfusion. Anterior chest incision well approximated and covered with dry intact dressing NEUROLOGIC: Cranial nerves II through XII intact MUSKULOSKELETAL: Able to move all extremities, strength equal bilaterally, gait normal PSYCHIATRIC: Alert and oriented to person place and time, appropriate affect, intact judgment and insight - Allied health notes Allied health notes reviewed: nursing - Labs CBC & Chem 7: 06/10/23 07:56 06/10/23 07:56 Labs: Abnormal Lab Results - Last 24 Hours (Table) 06/09/23 06/09/23 06/09/23 Range/Units 09:12 10:19 13:21 Sodium (137-145) mmol/L Creatinine (0.66-1.25) mg/dL Glucose (74-99) mg/dL POC Glucose (mg/dL) 143 H 133 H 191 H (70-110) mg/dL Total Protein (6.3-8.2) g/dL Albumin (3.5-5.0) g/dL 06/09/23 06/09/23 06/10/23 Range/Units 16:46 19:38 05:47 Sodium (137-145) mmol/L Creatinine (0.66-1.25) mg/dL Glucose (74-99) mg/dL POC Glucose (mg/dL) 182 H 163 H 140 H (70-110) mg/dL Total Protein (6.3-8.2) g/dL Albumin (3.5-5.0) g/dL 06/10/23 Range/Units 07:56 Sodium 134 L (137-145) mmol/L Creatinine 0.59 L (0.66-1.25) mg/dL Glucose 171 H (74-99) mg/dL POC Glucose (mg/dL) (70-110) mg/dL Total Protein 5.8 L (6.3-8.2) g/dL Albumin 3.3 L (3.5-5.0) g/dL - Imaging and Cardiology Chest x-ray: image reviewed Assessment and Plan Assessment: Coronary artery disease, status post three-vessel CABG History of CAD with previous myocardial infarction and PCI in 2017 History of ischemic cardiomyopathy Hypertension Hyperlipidemia, treated, cholesterol 149, LDL 64, triglycerides 223 Pulmonary nodule Current ongoing tobacco dependence Mild COPD, preoperative FEV1 62% of predicted Right internal carotid artery stenosis greater than 50% Diabetes mellitus type 2, preoperative hemoglobin A1c 7.6% Plan: Continue to maximize medical management with aspirin, statin, Plavix and beta kamilla Continue amiodarone for A. fib prophylaxis, will taper per protocol Encourage incentive spirometry 10 times every hour while awake. Bronchodilators per pulmonology Will monitor daily labs and chest x-rays. Electrolyte replacement per protocol Increase activity as tolerated. PT/OT/cardiac rehab following GI/DVT prophylaxis Pain control with current medication regimen Insulin management per internal medicine. Will need tight blood sugar control to prevent infection. Continue to record strict accurate intake and output Continue daily weights Shower daily Discharge planning in progress, anticipate discharge to home with home care later this afternoon More recommendations to follow based on patient's clinical course.
--- NOTE | 2023-06-10 10:25 | P.PN ---
Subjective HISTORY OF PRESENT ILLNESS: The patient is a 68-year-old gentleman who sees Dr. 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 Recently he underwent a stress test and that came in to be abnormal. The stenosis was myocardial perfusion imaging services and that showed anterior apical fixed defect with cardiomyopathy. Subsequently an echocardiogram was performed and confirmed the cardiomyopathy. In the light of that heart catheterization was advised. The patient underwent a heart catheterization and that revealed chr onic total occlusion of the left anterior descending artery. He was referred for open heart surgery and he underwent yesterday CABG 1 with FARIA to LAD. Patient was extubated yesterday. June 082022 The patient was seen and evaluated this morning. Overall he seems to be stable. He was sitting in the chair position to look in any pain or distress. He is maintaining normal sinus mechanism. Currently he isn't on amiodarone IV. Beside that he is on dual antiplatelet therapy and only low intensity statin. I am going to increase the dose of statin from no intensity high intensity. Bes afsaneh that he is on beta kamilla. Blood work appeared to be stable. Chest x-ray appeared to be stable as well. Examination is remarkable for diminished breathing sounds bilaterally June [id number] The patient was seen and evaluated this morning. Overall he seems to be stable from a cardiovascular standpoint of view. He is slightly tachycardic. The pressure remains a stable rhythm going to increase the dose of metoprolol to 25 mg by mouth 3 times a day. Continue high intensity statin with the chest x-ray was reviewed this morning and showed small bilateral pleural effusion. Hemoglobin remained stable. Kidney function remained stable. Electrolytes remained stable as well. 06/10/2023 Patient examined this morning. Patient is sitting up in the chair. Patient denies any chest pain or pressure. He denies any shortness of breath. Vital signs are stable. Telemetry reveals sinus mechanism. PHYSICAL EXAM: VITAL SIGNS: Reviewed. GENERAL: Well-developed in no acute distress. NECK: Supple. No JVD or thyromegaly LUNGS: Respirations even and unlabored. Lungs essentially clear to auscultation bilaterally. HEART: Regular rate and rhythm. S1 and S2 heard. EXTREMITIES: Normal range of motion. No clubbing or cyanosis. Peripheral pulses intact. 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 Status post CABG 1 with FARIA into LAD Ischemic cardiomyopathy Hypertension Dyslipidemia PLAN: Continue postoperative management per CT surgery Increase activity as tolerated Continue current cardiac medications Continue telemetry monitoring Encourage use of incentive spirometer Patient is currently stable from a cardiac perspective Possible discharge home today versus tomorrow Nurse practitioner note has been reviewed by physician. Signing provider agrees with the documented findings, assessment, and plan of care. Objective - Vital Signs Vital signs: Vital Signs Temp 98.1 F 06/10/23 08:00 Pulse 72 06/10/23 08:45 Resp 18 06/10/23 08:00 BP 144/67 06/10/23 08:00 Pulse Ox 97 06/10/23 08:32 FiO2 100 06/09/23 14:14 Intake & Output 06/09/23 06/10/23 06/10/23 18:59 06:59 18:59 Intake Total 99 480 Output Total 905 200 200 Balance -806 -200 280 Weight 88.2 kg Intake: IV 99 Lactated Ringers 1,000 ml 75 @ 20 mls/hr IV .Q24H SUDEEP Rx#:[id number] Pressure Bag (0.9 Sodium 24 Chloride) Intake, IV Titration 0 Amount Insulin Regular 100 unit 0 In Sodium Chloride 0.9% 100 ml @ Per Protocol IV .Q0M SUDEEP Rx#:[id number] Oral 480 Output: Chest Tube Drainage 30 Left Pleural/Mediastinal 30 Urine 875 200 200 Other: Voiding Method Indwelling Catheter Urinal # Voids 1 ABP, PAP, CO, CI - Last Documented Arterial Blood Pressure 141/64 Pulmonary Artery Pressure 17/0 Cardiac Output 5 Cardiac Index 2.4 - Labs CBC & Chem 7: 06/10/23 07:56 06/10/23 07:56 Labs: Abnormal Lab Results - Last 24 Hours (Table) 06/09/23 06/09/23 06/09/23 Range/Units 10:19 13:21 16:46 Sodium (137-145) mmol/L Creatinine (0.66-1.25) mg/dL Glucose (74-99) mg/dL POC Glucose (mg/dL) 133 H 191 H 182 H (70-110) mg/dL Total Protein (6.3-8.2) g/dL Albumin (3.5-5.0) g/dL 06/09/23 06/10/23 06/10/23 Range/Units 19:38 05:47 07:56 Sodium 134 L (137-145) mmol/L Creatinine 0.59 L (0.66-1.25) mg/dL Glucose 171 H (74-99) mg/dL POC Glucose (mg/dL) 163 H 140 H (70-110) mg/dL Total Protein 5.8 L (6.3-8.2) g/dL Albumin 3.3 L (3.5-5.0) g/dL
--- NOTE | 2023-06-10 10:55 | P.PN ---
Subjective Progress Note Date: 06/10/23 HISTORY OF PRESENT ILLNESS This is a 68 year old male with past medical history of hypertension, hyperlipi demia, coronary artery disease status post LAD angioplasty followed by stent thrombosis and second angioplasty in 2017, diabetes mellitus type 2, ALLERGIC rhinitis, enlarged prostate, carotid stenosis bilaterally. Patient was recently established in the office in March of this year. He has been followed for a number of issues. He underwent a stress test that revealed global hypokinesia with EF of 27% and fixed defects involving the mid anterior wall and mid inferior wall, ischemic cardiopathy myopathy should be considered. He was then sent to cardiology started on metoprolol and Jardiance but refused to take the Jardiance. He underwent a cardiac catheterization on 05/[address] Doris Vivar which revealed chronic total occlusion of the proximal LAD, normal circumflex coronary artery and nondominant right. At that time, the ischemic cardiomyopathy will be confirmed by echocardiogram and consider AICD. Echocardiogram was performed on 05/02 which revealed EF of 30-35%, trace aortic regurgitation and mild aortic stenosis, trace mitral regurgitation. Patient was referred to cardiothoracic surgery for CABG. Other workup that has been in process low-dose CAT scan which did identify pulmonary nodule and PET scan or biopsy was recommended. The patient was scheduled for PET scan and follow up with Dr. Aguilar. Patient was brought in the hospital by the cardiac thoracic surgery team status post 1 vessel CABG. Patient is in the intensive care unit and in the extubation process at this time. He has done well in the postop period and has been hemodynamically stable. 06/08: Patient remains in the intensive care unit. He has been successfully extubated currently on room air. [place] catheter was removed today. He is currently on insulin drip and CBGs are running 69-196. Telemetry is sinus rhythm. Blood pressure 108/79, heart rate in the 70s and 80s, pulse ox 100% on room air. Hemoglobin today 15. WBC 8.6. Platelet count 155. Sodium 132, potassium 3.6, creatinine 0.49. Repeat chest x-ray reveals postoperative changes. Patient is reaching greater than 500 on incentive spirometry. 06/09: Patient remains in the intensive care unit. Patient has had no postop complications. Chest tubes have been removed. Metoprolol was increased to 50 mg twice daily for tachycardia. Telemetry is sinus rhythm. He remains on insulin drip and blood sugars well controlled. Insulin drip was discontinued and patient started on Levemir 9u and sliding scale. We will resume metformin increased to 1000mg bid. Repeat chest x-ray reveals postoperative changes. Mild venous congestion or pneumonitis stable, no sizable pneumothorax. Repeat blood work reveals WBC 8.9, hemoglobin 14.8, platelet count 130. Sodium 132, potassium 4.4, chloride 103, CO2 19, BUN 10 and creatinine 0.62. Blood sugar 139. 06/10: Patient is sitting up in the chart apparent distress, he just had a brendan wer, he had breakfast, he did have bowel was is passing a lot of gas, I've increased his metformin to 1000 mg orally twice every day, up her schedule was called into his pharmacy, discontinue insulin, of follow-up with the patient as an outpatient in a week from now. Stable for discharge. REVIEW OF SYSTEMS Constitutional: No fever, no chills, no night sweats. No weight change. No weakness, fatigue or lethargy. No daytime sleepiness. EENT: No headache. No blurred vision or double vision, no loss of vision. No loss of Hearing, no ringing in the ears, no dizziness. No nasal drainage or co ngestion. No epistaxis. No sore throat. Lungs: No shortness of breath, cough, no sputum production. No wheezing. Cardiovascular: Reported chest discomfort, no lower extremity edema. No palpitations. No paroxysmal nocturnal dyspnea. No orthopnea. No lightheadedness or dizziness. No syncopal episodes. Abdominal: No abdominal pain. No nausea, vomiting. No diarrhea. No constipation. No bloody or tarry stools. No loss of appetite. Genitourinary: No dysuria, increased frequency, urgency. No urinary retention. Musculoskeletal: No myalgias. No muscle weakness, no gait dysfunction, no fr equent falls. No back pain. No neck pain. Integumentary: No wounds, no lesions. No rash or pruritus. No unusual bruising. No change in hair or nails. Neurologic: No aphasia. No facial droop. No change in mentation. No head injury. No headache. No paralysis. No paresthesia. Psychiatric: No depression. No anxiety. No mood swings. Endocrine: No abnormal blood sugars. No weight change. No excessive sweating or thirst. No cold intolerance. PHYSICAL EXAMINATION Gen: This is a 68-year-old male. He is resting in chair appears to be comfortable and in no acute distress. HEENT: Head is atraumatic, normocephalic. Pupils equal, round. Sclerae is anicteric. NECK: Supple. No JVD. No lymphadenopathy. No thyromegaly. LUNGS: Diminished breath sounds bilaterally. No intercostal retractions. HEART: First heart sound is depressed, second heart sound is normal, 2/6 systolic ejection murmur at left sternal border. ABDOMEN: Soft. Bowel sounds are present. No masses. No tenderness. EXTREMITIES: No pedal edema. No calf tenderness. NEUROLOGICAL: Patient is awake, alert and able to follow commands. Cranial nerves 2 through 12 are grossly intact. ASSESSMENT AND PLAN 1. Coronary artery disease status post 1 vessel CABG FARIA to LAD, 06/07. Continue current management per cardiothoracic surgery. Continue patient on aspirin, atorvastatin, Plavix, Lopressor, amiodarone. Continue Elmer as needed for pain. Continue patient on DuoNeb treatments 4 times daily. 2. Diabetes mellitus type 2. Discontinue insulin and start the patient on metformin 1000 mg orally twice every day. 3. Hypertension. Losartan 25 mg daily, Lopressor 50 mg twice daily monitor blood pressure. 4. Hyperlipidemia. Continue atorvastatin 80 mg hs. 5. Enlarged prostate. Monitor for urinary retention. 6. Carotid stenosis bilaterally, stable. 7. Ischemic cardiomyopathy. Continue patient on Lopressor 50 mg twice daily. 8. Tobacco use and dependence. Patient is on a nicotine patch. Smoking cessation. 9. Pulmonary nodule. Patient will have PET scan and follow-up with Dr. Bashir. 10. DVT prophylaxis. Heparin- 5000 units subcu every 8 hours. 11. GI prophylaxis. Protonix 40 mg daily. 12. Patient is medically stable for discharge follow-up with me as an outpatient 1 week. Objective - Vital Signs Vital signs: Vital Signs Temp 98.1 F 06/10/23 08:00 Pulse 72 06/10/23 08:45 Resp 18 06/10/23 08:00 BP 144/67 06/10/23 08:00 Pulse Ox 97 06/10/23 08:32 FiO2 100 06/09/23 14:14 Intake & Output 06/09/23 06/10/23 06/10/23 18:59 06:59 18:59 Intake Total 99 480 Output Total 905 200 200 Balance -806 -200 280 Weight 88.2 kg Intake: IV 99 Lactated Ringers 1,000 ml 75 @ 20 mls/hr IV .Q24H [facility] Rx#:[id number] Pressure Bag (0.9 Sodium 24 Chloride) Intake, IV Titration 0 Amount Insulin Regular 100 unit 0 In Sodium Chloride 0.9% 100 ml @ Per Protocol IV .Q0M [facility] Rx#:[id number] Oral 480 Output: Chest Tube Drainage 30 Left Pleural/Mediastinal 30 Urine 875 200 200 Other: Voiding Method Indwelling Catheter Urinal # Voids 1 ABP, PAP, CO, CI - Last Documented Arterial Blood Pressure 141/64 Pulmonary Artery Pressure 17/0 Cardiac Output 5 Cardiac Index 2.4 - Labs CBC & Chem 7: 06/10/23 07:56 06/10/23 07:56 Labs: Abnormal Lab Results - Last 24 Hours (Table) 06/09/23 06/09/23 06/09/23 Range/Units 10:19 13:21 16:46 Sodium (137-145) mmol/L Creatinine (0.66-1.25) mg/dL Glucose (74-99) mg/dL POC Glucose (mg/dL) 133 H 191 H 182 H (70-110) mg/dL Total Protein (6.3-8.2) g/dL Albumin (3.5-5.0) g/dL 06/09/23 06/10/23 06/10/23 Range/Units 19:38 05:47 07:56 Sodium 134 L (137-145) mmol/L Creatinine 0.59 L (0.66-1.25) mg/dL Glucose 171 H (74-99) mg/dL POC Glucose (mg/dL) 163 H 140 H (70-110) mg/dL Total Protein 5.8 L (6.3-8.2) g/dL Albumin 3.3 L (3.5-5.0) g/dL
[2023-06-10 11:25] VITALS: BP 119/67; RESP 16; TEMP 97.8
[2023-06-10 11:40] LABS: Glucose,Whole Blood 148 mg/dL (70-110)
[2023-06-10 12:00] VITALS: PULSE 72
--- NOTE | 2023-06-10 12:10 | P.PN ---
Subjective Progress Note Date: 06/10/23 This is a 68-year-old male patient with previous stenting of the LAD, quadrant underwent a recent cardiac catheterization the patient was found to have total occlusion of the LAD at the stent with distal reconstitution of the vessel via collaterals. Patient also had an echocardiogram that showed impaired LV function. Based on that, the patient was brought in today and he underwent an elective off-pump coronary artery bypass surgery 1 with FARIA to LAD. Estimated blood loss less than 50 mL PT I saw the patient immediately after he arrived to the intensive care unit. The patient was quite restless and he was placed on a combination of Precedex which was running at 1.4 mg/kg/h and propofol running at 30 mg/kg/m. The patient was on a mechanical ventilator. The patient was on assist-control mode at a rate of 12, tidal volume of 500, FiO2 of 100% and a PEEP of 5. The blood gas showed a pH of 7.27 with a pCO2 of 62 and pO2 of more than 400. Chest x-ray showed adequate expansion of both lungs. The patient and mediastinal and left lower chest tube. Output from the chest tubes are bloody and minimal at this point in time and those out of 150 mL and there is no evidence of air leak. The patient was hemodynamically stable. Cardiac output was 8 with an index of 4.0. The pulmonary artery pressures were 20/16. The patient is currently on nitroglycerin drip at 5 mcg/m and insulin drip at 2.5 units an hour. The patient is also on cleviprex drip running at 10 mg an hour.. The patient is doing otherwise well. Adequate urine output. No cardiac arrhythmias noted. This evaluation of 06/08/2023, the patient is extubated and patient is currently on room air oxygen. Doing well. Hemodynamically stable. [place] catheter removed. Chest x-ray shows adequate expansion of both lungs, no evidence of any pneumothorax. The pleural and mediastinal chest tubes are still in place, total amount of output has been in the order of 700 mL and both tubes are connected. The patient's hemoglobin today is at 15, sodium is at 132, BUN is at 10 with a creatinine of 0.4. Cardiac rhythm is sinus. Remains on insulin drip at 5 units an hour. No other significant events overnight. Awake and alert. Using incentive spirometer, falling approximately 1000 On 06/09/2023, the patient is postop day #2. The patient is doing well. No specific complaints. Chest tubes were removed today. Chest x-ray showed some small effusion and atelectatic change in lung bases bilaterally. He was having some chest discomfort which improved after removal of the chest tube. He is in sinus tachycardia and the metoprolol dose was increased up to 50 mg twice a day. He is hemodynamically stable. His BUN is at 10 with a creatinine of 0.6 and the white cycles of 8.9 with a hemoglobin of 14.8. He remains on insulin drip at 5based on his feeding habits and blood sugar is control and the patient was receiving metformin outpatient basis. He is ambulating. No altered mentation. No focal neurological deficits. Surgical 1 site is dry and clean. 06/10/2022, the patient's postop day #3. Doing extremely well. No specific complaints. He is on room air oxygen. Chest x-ray findings are stable. Hemodynamically stable. The echoes at 7.5 with a hemoglobin of 15.7, BUN is 11 with a creatinine of 0.5. He is still using the incentive spirometer. Objective - Vital Signs Vital signs: Vital Signs Temp 98.1 F 06/10/23 08:00 Pulse 72 06/10/23 08:45 Resp 18 06/10/23 08:00 BP 144/67 06/10/23 08:00 Pulse Ox 97 06/10/23 08:32 FiO2 100 06/09/23 14:14 Intake & Output 06/09/23 06/10/23 06/10/23 18:59 06:59 18:59 Intake Total 99 480 Output Total 905 200 200 Balance -806 -200 280 Weight 88.2 kg Intake: IV 99 Lactated Ringers 1,000 ml 75 @ 20 mls/hr IV .Q24H [facility] Rx#:[id number] Pressure Bag (0.9 Sodium 24 Chloride) Intake, IV Titration 0 Amount Insulin Regular 100 unit 0 In Sodium Chloride 0.9% 100 ml @ Per Protocol IV .Q0M [facility] Rx#:[id number] Oral 480 Output: Chest Tube Drainage 30 Left Pleural/Mediastinal 30 Urine 875 200 200 Other: Voiding Method Indwelling Catheter Urinal # Voids 1 ABP, PAP, CO, CI - Last Documented Arterial Blood Pressure 141/64 Pulmonary Artery Pressure 17/0 Cardiac Output 5 Cardiac Index 2.4 - Exam Gen. appearance, the patient is calm and comfortable on RA Head exam was generally normal. There was no scleral icterus or corneal arcus. Mucous membranes were moist. Neck was supple and without jugular venous distension, thyromegaly, or carotid bruits. Carotids were easily palpable bilaterally. There was no adenopathy. Lungs sounds are diminished bilaterally. Chest tubes are removed Cardiac exam revealed the PMI to be normally situated and sized. The rhythm was regular and no extrasystoles were noted during several minutes of auscultation. The first and second heart sounds were normal and physiologic splitting of the second heart sound was noted. There were no murmurs, rubs, clicks, or gallops. The sternotomy site is dry clean and intact. Abdominal exam revealed normal bowel sounds. The abdomen was soft, non-tender, and without masses, organomegaly, or appreciable enlargement of the abdominal aorta. Examination of the extremities revealed easily palpable radial, femoral and ped al pulses. There was no cyanosis, clubbing or edema. Examination of the skin revealed no evidence of significant rashes, suspicious appearing nevi or other concerning lesions. Neurologically, the patient has OAx3 - Labs CBC & Chem 7: 06/10/23 07:56 06/10/23 07:56 Labs: Abnormal Lab Results - Last 24 Hours (Table) 06/09/23 06/09/23 06/09/23 Range/Units 13:21 16:46 19:38 Sodium (137-145) mmol/L Creatinine (0.66-1.25) mg/dL Glucose (74-99) mg/dL POC Glucose (mg/dL) 191 H 182 H 163 H (70-110) mg/dL Total Protein (6.3-8.2) g/dL Albumin (3.5-5.0) g/dL 06/10/23 06/10/23 Range/Units 05:47 07:56 Sodium 134 L (137-145) mmol/L Creatinine 0.59 L (0.66-1.25) mg/dL Glucose 171 H (74-99) mg/dL POC Glucose (mg/dL) 140 H (70-110) mg/dL Total Protein 5.8 L (6.3-8.2) g/dL Albumin 3.3 L (3.5-5.0) g/dL Assessment and Plan Plan: Coronary artery disease with complete occlusion of the LAD with collateral circulation. The patient underwent an off-pump single-vessel bypass surgery wi th FARIA to LAD. The patient is currently postop day #2. For now, the patient is hemodynamically stable Postthoracotomy, currently intubated on a mechanical ventilator. Chest x-ray was noted. Extubated the patient is currently on room air oxygen. Chest tubes are removed Hypertension off clevidipine drip Pulmonary nodule measuring 7 mm in size in the right lower lobe, not at avid Chronic systolic heart failure. Cardiac output and index is adequate at this point in time. Mild to moderate COPD with an FEV1 of 62% of predicted and a diffusion capacity of 44% of predicted Diabetes mellitus2 Hyperlipidemia History of smoking Sinus tachycardia Plan Clinically and hemodynamically stable IS Chest tubes to be removed yesterday and the chest x-ray stable Continue aspirin and Plavix Continue amiodarone 400 mg by mouth twice a day and the patient's current cardiac rhythm is sinus Continue Lipitor 80 mg by mouth daily Metoprolol 50 mg twice a day Patient has adequate pain control We'll continue to follow make further recommendations based on the overall pulmonary progress. The pulmonary nodule will be followed up on outpatient basis by his [employer] teacher, Dr. Bashir Possible discharge home today
--- NOTE | 2023-06-10 12:42 | XR ---
EXAM: XR chest 1V portable CLINICAL INDICATION:Male, 68 years old with history of Post op CABG; [facility] COMPARISON: 06/09/2023 TECHNIQUE: Chest single view. FINDINGS: Lines/tubes/devices: EKG leads overlie the chest. Previous left-sided chest tube has apparently been removed. No indwelling lines are seen. Sternotomy wires and left atrial appendage clip. Cardiomediastinum: Heart and mediastinal silhouette appears stable, mild cardiomegaly and partially calcified aorta. Vasculature: Decreased pulmonary vascular congestion. Lungs/pleura: Interval improved aeration of bibasilar pleural/parenchymal opacities. No new or worsening consolidat ion, or pneumothorax. Bones/soft tissues: Bony thorax appears grossly unchanged as seen. Regional soft tissues appear unremarkable. IMPRESSION: 1. Cardiomegaly and postoperative changes. Interval removal of left chest tube. 2. Interval improved aeration of bibasilar pleural/parenchymal opacities, and decreased central vasc ular congestion.
--- NOTE | 2023-06-10 12:45 | P.DS ---
Providers Date of admission: 06/07/23 05:34 Expected date of discharge: 06/10/23 Attending physician: Sam Coy Consults: 06/07/23 11:13 Consult Physician Routine Consulting Provider: Jaylen Aguilar Consult Reason/Comments: [employer] Supervisor Consult: post cardiac surgery Do you want consulting provider notified?: Yes Consult Physician Routine Consulting Provider: Lena Hines Consult Reason/Comments: med mgmt Do you want consulting provider notified?: Yes Consult Physician Routine Consulting Provider: Everardo Monteiro Consult Reason/Comments: Finisher Map And Chart Consult: post cardiac surgery Do you want consulting provider notified?: Yes Primary care physician: Lena Hines Hospital Course: FINAL DIAGNOSIS: 1. Coronary artery disease 2. History of CAD with previous myocardial infarction and PCI in 2017 3. History of ischemic cardiomyopathy, EF 50-55% on most recent echo 4. Hypertension 5. Hyperlipidemia, treated, cholesterol 149, LDL 64, triglycerides 223 6. Pulmonary nodule 7. Current ongoing tobacco dependence 8. Mild COPD, preoperative FEV1 62% of predicted 9. Type 2 diabetes, preoperative hemoglobin A1c 7.6% PRINCIPAL PROCEDURE: 1. Off-pump coronary artery bypass 1 with left internal mammary artery to the left anterior descending coronary artery 2. Ligation of the left atrial appendage with a 35 mm AtriCure clip 3. Intraoperative transesophageal echocardiogram performed by anesthesia HISTORY OF PRESENT ILLNESS: This is a 68-year-old gentleman who follows outpatient with Dr. Hines for primary care and Dr. Vivar for cardiology. He had a recent heart catheterization demonstrating complete occlusion of the LAD, the distal LAD and diagonal which filled via collaterals, as well as an occluded high diagonal branch. The patient was referred to Dr. Coy from cardiothoracic surgery. He was recommended to undergo single vessel off-pump CABG. The usual perioperative course was discussed in detail with the patient and his family, all risks and benefits were explained, all questions were answered, and consent was obtained to proceed with surgery. The patient was scheduled at the earliest possible date after pulmonary clearance due to his nodule found on screening CT scan. HOSPITAL COURSE: The patient was brought to the hospital on 06/07/2023, taken to the preoperative area, prepared in the usual fashion, and subsequently taken to the operating room where Dr. Coy performed off-pump CABG 1. Upon completion of surgery the patient was transferred to the cardiovascular intensive care unit where he was recovered and monitored hemodynamically. He was extubated, all lines, tubes, and drips were discontinued when appropriate, and he was transferred to 3 S cardiac stepdown unit for further monitoring and rehabi litation. His oxygen was titrated down, he continued to work with physical and occupational therapy, he was tolerating oral diet, his pain was controlled, and he was ready to be discharged to home with [facility] care on postoperative day #3. He received written and verbal instruction regarding his medications, activity restrictions, signs and symptoms requiring physician notification, and follow-up appointments. Patient Condition at Discharge: Stable Plan - Discharge Summary Discharge Rx Participant: No New Discharge Prescriptions: New Nicotine 14Mg/24Hr Patch [Habitrol] 1 patch TRANSDERM DAILY #30 patch Metoprolol Tartrate [Lopressor] 50 mg PO BID #60 tab Clopidogrel [Plavix] 75 mg PO DAILY #30 tab Pantoprazole [Protonix] 40 mg PO AC-BRKFST #30 tab metFORMIN HCL 1,000 mg PO BID #180 tablet Amiodarone [Cordarone] 400 mg PO BID #40 tab Losartan [Cozaar] 25 mg PO DAILY tab Atorvastatin [Lipitor] 80 mg PO HS #30 tab Sennosides-Docusate Sodium [Senokot-S] 2 each PO HS #14 tab Acetaminophen Tab [Tylenol] 1,000 mg PO Q6HR PRN tab PRN Reason: Fever And/ Or Pain Continue Aspirin 81 mg PO DAILY #30 Multivitamins, Thera [Multivitamin (formulary)] 1 tab PO DAILY Albuterol Inhaler [Ventolin Hfa Inhaler] 1 - 2 puff INHALATION Q6H PRN PRN Reason: Shortness Of Breath Vision Shield 1 cap PO DAILY Discontinued metFORMIN HCL [Glucophage] 500 mg PO BID Metoprolol Succinate (ER) [Toprol XL] 25 mg PO DAILY Atorvastatin [Lipitor] 20 mg PO HS Nitroglycerin Sl Tabs [Nitrostat] 0.4 mg SUBLINGUAL Q5M PRN PRN Reason: Chest Pain Losartan [Cozaar] 25 mg PO DAILY Discharge Medication List Aspirin 81 mg PO DAILY #30 01/20/17 [Rx] Vision Shield 1 cap PO DAILY 05/04/23 [History] Albuterol Inhaler [Ventolin Hfa Inhaler] 1 - 2 puff INHALATION Q6H PRN 06/01/23 [History] Multivitamins, Thera [Multivitamin (formulary)] 1 tab PO DAILY 06/01/23 [History] metFORMIN HCL 1,000 mg PO BID #180 tablet 06/09/23 [Rx] Acetaminophen Tab [Tylenol] 1,000 mg PO Q6HR PRN tab 06/10/23 [Rx] Amiodarone [Cordarone] 400 mg PO BID #40 tab 06/10/23 [Rx] Atorvastatin [Lipitor] 80 mg PO HS #30 tab 06/10/23 [Rx] Clopidogrel [Plavix] 75 mg PO DAILY #30 tab 06/10/23 [Rx] Losartan [Cozaar] 25 mg PO DAILY tab 06/10/23 [Rx] Metoprolol Tartrate [Lopressor] 50 mg PO BID #60 tab 06/10/23 [Rx] Nicotine 14Mg/24Hr Patch [Habitrol] 1 patch TRANSDERM DAILY #30 patch 06/10/23 [Rx] Pantoprazole [Protonix] 40 mg PO AC-BRKFST #30 tab 06/10/23 [Rx] Sennosides-Docusate Sodium [Senokot-S] 2 each PO HS #14 tab 06/10/23 [Rx] Follow up Appointment(s)/Referral(s): Radha Bashir MD [STAFF PHYSICIAN] - 06/21/23 9:30 [facility] Weeks (You will receive a phone call in approximately 4-6 weeks for evaluation for cardiac rehab) Lena Hines MD [Primary Care Provider] - 1 Week (Office will call with appointment) [facility] a [facility] Sam Coy MD [STAFF PHYSICIAN] - 06/29/23 2:45 pm Raymond Montana NPC [Nurse Practitioner] - 06/16/23 11:15 am Manny Vivar MD [STAFF PHYSICIAN] - 06/29/23 9:30 am Ambulatory/Diagnostic Orders: Complete Blood Count w/diff [LAB.AMB] Time Frame: 06/13/23, Facility: [facility], Location: [facility] Comprehensive Metabolic Panel [LAB.AMB] Time Frame: 06/13/23, Facility: [facility], Location: [facility] Hospital Activity/Diet/Wound Care/Special Instructions: DISCHARGE INSTRUCTIONS: 1. No driving for 4 weeks, or until physician gives their ok. 2. The patient should sleep in their own bed, no medical bed needed. 3. Stairs are not an issue. If the bedroom is upstairs, it is advised that the patient go up at night and down in the morning for the first week. Go slowly, using handrail and take 1 step at a time. 4. WOLF hose are to be worn for 30 days post surgery or until physician discontinues. 5. Heart hugger is to be worn 100% of the time until physician discontinues.(except when showering) 6. No lifting, pushing, or pulling more than 10 pounds for 12 weeks. The physician will advise of any restriction changes. 7. The patient is expected to continue the prescribed walking program. 8. Continue pain control per as needed orders. 9. Continue with incentive spirometry and splinting/heart hugger until otherwise directed by the physician. 10. Must shower daily using liquid antibacterial soap 11. Routine sternal incision care. No powders, lotions, ointments on incisions. No dressings are necessary on incisions unless they are draining. Dermabond tape is to remain on sternal incision until surgeon follow-up. 12. Please call surgeon/PSYCH ARNP for temp greater than 101 F or purulent drainage from incisions. 13. You should weigh yourself daily, record and bring log with you to follow up appointments. 14. All prescriptions given by surgeon for 30 days. Refills need to be filled through bottle packing machine cleaner/primary care physician. 15. A Red armband has been placed on the patient. It should be worn for 30 days post discharge from surgery and will be removed by the cardiac surgeons. If an ER visit is necessary, please make sure the number on the Red armband is called before going to ER. 16. You have been referred to and are expected to begin Cardiac Rehab in approximately 4-6 weeks. 17. Quitting smoking is the most important step you can take to improve your health. For additional information and assistance to quit smoking, please call the [employer] tobacco quit line (2-657-GAIV-NOW/ ) or online: [email or web address]-to-qu it-tobacco 18. The patient has been instructed to check her blood sugars before meals and at bedtime, keep a record of her blood sugars and bring the record to her follow-up appointment with her primary care physician. HOME HEALTH SERVICES TO PROVIDE: RN SKILLED HOME CARE SERVICES FOR POST-OP SURGICAL PATIENTS WITH THE FOLLOWING: Coronary Artery Bypass Surgery (CABG), Mitral Valve Replacement/Repair ( MVR), Aortic Valve Replacement/Repair (AVR) RN TO CONTINUE EDUCATION FROM ``ROAD TO A HEALTH HEART PATIENT EDUCATION MANUAL (GIVEN TO PATIENT IN THE HOSPITAL) MEDICATION RECONCILIATION WITH EDUCATION NEEDED ON FIRST HOME VISIT EMPHASIZE IMPORTANCE OF WEARING BREAST SUPPORT/HEART HUGGER ENCOURAGE USE OF INCENTIVE SPIROMETER 10 X EVERY HOUR WHILE AWAKE ENCOURAGE UTILIZATION OF LOWER EXTREMITY COMPRESSION STOCKINGS/WOLF HOSE and ELEVATE LEGS ABOVE LEVEL OF HEART WHILE AT REST. ENCOURAGE AMBULATION 3-5x/day INCREASING TOLERATES, WHILE AVOIDING EXTREMES IN TEMPERATURE FREQUENCY: RN TO OPEN THE PATIENT WITHIN 24 HOURS OF DISCHARGE FROM THE HOSPITAL WITH [place] [facility] [place] VISIT 2-3 X A WEEK FOR 4 WEEKS ESTABLISHED BY PATIENT NEEDS. LABORATORY: CBC, CMP TO BE DRAWN ON THE THIRD DAY HOME, (RAN STAT) FAX RESULTS TO [phone]. TELEHEALTH PARAMETERS: WEIGHT: NOTIFY MD OF WEIGHT GAIN OF 2 LBS IN 24 HOURS OR 5 LBS IN ONE WEEK HR: NOTIFY MD OF HR <55 BPM OR HR>100 BPM BP: NOTIFY MD IF BP <90/55 OR BP>140/100 O2 SAT: NOTIFY MD IF PO2<93% ON ROOM AIR SEND TELEHEALTH REPORT TO INTERNATIONAL COORDINATOR AND CARDIOVASCULAR SURGEON THE FIRST WEEK OF CARE AND THEN BI-WEEKLY. PLEASE ADDITIONALLY COMMUNICATE ANY ABNORMALS AND NEW FINDINGS TO THE SURGEONS OFFICE. Discharge Disposition: HOME WITH HOME HEALTH SERVICES
[2023-06-10] MEDS ORDERED: metFORMIN 500 MG TAB PO SCH (17:30)
--- NOTE | 2023-06-12 21:40 | CDI ---
Documentation Clarification Form Date: 06/12/2023 09:28:24 PM From: Mony Ryder Phone: Admit Date: 06/07/2023 05:34:00 AM Patient Name: Steven Jasmine Visit Number: [id number] Discharge Date: 06/10/2023 01:12:00 PM ATTENTION: The Clinical Documentation Specialists (CDI) and [facility] Coding Staff appreciate your assistance in clarifying documentation. Please respond to the clarification below the line at the bottom and electronically sign. The CDI & [facility] Coding staff will review the response and follow-up if needed. Please note: Queries are made part of the Legal Health Record. If you have any questions, please contact the author of this message via ITS. Dr. Jaylen Aguilar Your patient has diagnostic/radiology results: A1C 7.6. Please clarify if there is an additional diagnosis and/or clinical significance related to this result. History/Risk Factors: 68yo M, CAD w stent, Hx MT, ICM, HTN, HLD, pulmonary nodule, smoker, DMII, COPD Clinical indicators: Glucose: 06/07 117-170 06/08 104-196 06/09 69-200 06/10 133-191 Treatment: insulin drip at 2.5 units an hour Is there an additional diagnosis and/or clinical significance related to the above diagnostic/radiology result? [ x] Type 2 diabetes mellitus with hyperglycemia [ ] Type 2 diabetes mellitus with hypoglycemia [ ] Result is not clinically significant (no additional diagnosis) [ ] Other, please specify [ ] Unable to determine (Template Last Reviewed: October 2020) MTDD
== END 2023-06-10 13:12 | disposition home health service (06) | DRG 236 ==
LOC: 2ORMAIN 05:34 → 2SICU 11:54 → 3SCARD 06-09 15:09
PROVIDERS: ADMIT Thoracic Surgery (Cardiothoracic Vascular Surgery); ATTEND Thoracic Surgery (Cardiothoracic Vascular Surgery)
PROC: 02L70CK Occlusion of Left Atrial Appendage with Extraluminal Device, Open Approach (ICD-10-PCS; 2023-06-07)
PROC: B24BZZ4 Ultrasonography of Heart with Aorta, Transesophageal (ICD-10-PCS; 2023-06-07)
PROC: 02100Z9 Bypass Coronary Artery, One Artery from Left Internal Mammary, Open Approach (ICD-10-PCS; principal; 2023-06-07 08:00)
DX: I25.10 Atherosclerotic heart disease of native coronary artery without angina pectoris (principal); I50.22 Chronic systolic (congestive) heart failure; I11.0 Hypertensive heart disease with heart failure; E11.65 Type 2 diabetes mellitus with hyperglycemia; J43.9 Emphysema, unspecified; I25.82 Chronic total occlusion of coronary artery; I65.23 Occlusion and stenosis of bilateral carotid arteries; I08.0 Rheumatic disorders of both mitral and aortic valves; I25.5 Ischemic cardiomyopathy; I87.8 Other specified disorders of veins; R91.1 Solitary pulmonary nodule; F17.210 Nicotine dependence, cigarettes, uncomplicated; N40.0 Benign prostatic hyperplasia without lower urinary tract symptoms; J98.4 Other disorders of lung; E78.5 Hyperlipidemia, unspecified; Z94.89 Other transplanted organ and tissue status; Z95.5 Presence of coronary angioplasty implant and graft; I25.2 Old myocardial infarction; Z79.82 Long term (current) use of aspirin; Z79.84 Long term (current) use of oral hypoglycemic drugs; Z79.899 Other long term (current) drug therapy; Z82.3 Family history of stroke
CPT/HCPCS: 71045; 80053; 82330; 82805; 83735; 85025; 85610; 85730; 86850; 86891; 86900; 86901; 86920; 94002; 94640; 94760

== ENCOUNTER → 2024-05-22 | Outpatient (CLI) | payer MEDICARE ==
--- NOTE | 2024-06-04 08:20 | CTL ---
EXAMINATION TYPE: CT Low Dose Lung DATE OF EXAM ORDERED: 05/22/2024 HISTORY: Personal tobacco use. Lung cancer screening CT DLP: 84.[address] CTDI: 2.2 mGy Automated exposure control for dose reduction was used. SCREENING VISIT: Initial COMPARISON: Chest x-ray 06/21/2023 TECHNIQUE: Low dose computed tomography scan was performed through the chest at 1 mm thick sections a nd reconstructed images in the coronal plane at [address] DIAGNOSTIC QUALITY: Satisfactory FINDINGS: LUNG NODULES: Present, detailed below: 1. 0.8 cm nodule peripheral right lung. Series 4 image 217. 2. 0.5 cm pleural-based density lateral right lung base. Series 4 image 240. LUNGS: COPD: Severity: Mild Fibrosis: Severity: None Lymph nodes: None Other findings: None RIGHT PLEURAL SPACE: Effusion: None Calcification: None Thickening: None Pneumothorax: None LEFT PLEURAL SPACE: Effusion: None Calcification: None Thickening: None Pneumothorax: None HEART: Other: Ascending thoracic aorta at the level the main pulmonary artery measures 3.8 cm. The main pul monary artery at the bifurcation measures 3.1 cm. Heart Size: Normal Coronary calcification: Moderate Pericardial effusion: None OTHER FINDINGS: Upper abdomen: Normal Bony thorax: Normal Supraclavicular region: Normal IMPRESSION: 1. 0.8 cm peripheral nodule. Additional workup with PET CT recommended. FOLLOW UP CT CHEST RECOMMENDATION: Follow-up PET/CT CT LUNG RAD: Lung-Rad 4A [facility], , 06/04/2024 8:18 AM
== END | disposition home or self-care (01) ==
LOC: RADCTMAIN 09:06
PROVIDERS: ATTEND Internal Medicine
DX: R91.8 Other nonspecific abnormal finding of lung field
CPT/HCPCS: 71271

== ENCOUNTER → 2024-06-27 | Outpatient (CLI) | payer MEDICARE ==
[2024-06-27 16:35] LABS: ALT 20 U/L (10-49); AST 17 U/L (14-35); Chol/HDL Ratio 3.23 Ratio
== END | disposition home or self-care (01) ==
LOC: LABWHC1 08:04
PROVIDERS: ATTEND Internal Medicine Cardiovascular Disease
DX: E78.2 Mixed hyperlipidemia (principal)
CPT/HCPCS: 36415; 80061; 84450; 84460